=== PATIENT | male | born 1950 | race Caucasian/White ===

== ENCOUNTER 2017-05-24 18:12 | Emergency (ER) | payer MEDICARE, MEDICAID ==
[~2017-05-24] VITALS: Ht 177.8 cm; Wt 106.6 kg
[~2017-05-24 18:12] MED LIST: ALBUTEROL2 PUFFS/17 IN; AMLODIPINE10 MG PO; ATENOLOL25 M1 PO; BACTRIM DS 8001 TA1 PO; GEMFIBROZIL600 MG PO; HUMALOG KW100 UNIT/1 SQ; HUMALOG MIX 75/10 ML SC; JANUMET 1000 MG1 TAB PO; JANUMET XR 10001 TE1 PO; LASIX20 MG PO; LEVAQUIN 750 M750 MG PO; LISINOPRIL40 MG PO; LORTAB 10/3251 TAB PO; LORTAB 5/500 501 TAB PO; METFORMIN1000 MG PO; PLAVIX75 MG PO; PRAVASTATIN 40M40 MG PO; PREDNISONE 20MG20 MG PO; PRILOSEC20 MG PO; TRICOR145 MG NG; VICODIN 7.5/501 EACH PO; ZOFRAN4 MG PO
--- NOTE | 2017-05-24 18:30 | Emergency Room Report ---
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 N Clinical Suspician of Infection? Y Mental Status: 1 - Regular (Normal Baseline) Sepsis Risk:Low Sepsis Risk Have you (or family members/close friends) recently traveled outside the [place]? N If Yes, where/when: Have you had exposure to infectious disease within the past month? TB? Other? Specify: Comment The patient says he has not felt well for one week. He feels lightheaded, dizzy, like he is going to pass out. Symptoms worsened on Thursday, 2 days ago. He has been able to walk, able to drive. However, when he stands up, he says that he feels both off balance and lightheaded like he is going to pass out. He has not had complete syncope with this. Symptoms are not present lying down. He says that today his blood sugar was running 360-370 despite using 3 doses of insulin today, 30-35 units. His blood sugar normally runs between 150 and 250. He says that he has a cough for 1 month producing some phlegm. He also feels like he has a cyst on his bottom that he thinks might have ruptured today in the shower. No fever, chest pain, shortness of breath, vomiting. ALLERGIES Coded Allergies: No Known Drug Allergies (05/24/17) Home Medications Active Scripts Albuterol (Albuterol Inhaler 17GM) 1-2 PUFFS IN QID PRN SHORTNESS OF AIR #1 INH Prov: 08/07/14 HYDROCODONE/ACETAMINOPHEN (Lortab 10-325 MG Tablet) 1 TAB PO QID #20 TAB Prov: 05/25/15 Reported Medications Clopidogrel Bisulfate (Plavix) 75 MG PO DAILY LISINOPRIL (Lisinopril) 10 MG PO BID Atenolol 25 MG PO DAILY Amlodipine Besylate (Norvasc) 2.5 MG PO DAILY Omeprazole (Prilosec 20MG) 20 MG PO DAILY Metformin Hydrochloride/Ana (Janumet 1000 Mg-50 Mg) 1 TAB PO BID INSULIN NPL/INSULIN LISPRO (Humalog Mix 75-25 Vial) 30 UNITS SC DAILY INSULIN NPL/INSULIN LISPRO (Humalog Mix 75-25 Vial) 40 UNITS SC QHS Gemfibrozil (GEMFIBROZIL 600MG) 600 MG PO BID Insulin Lispro (Humalog Kwikpen) 30 UNIT SQ NOON History Medical History General CAD? Yes Angina: Yes DC: No Hypertension? Yes Hyperlipidemia? Yes CHF? No COPD? No Asthma? No Anemia? No Hernia? No Thyroid Problems? No Hypothyroidism? No CVA? No Seizures? No Diabetes? Yes Insulin Dependent: Yes Insulin Pump: No Home FSBS? Yes End Stage Renal Disease? No UTI? No Stones? Yes GB Disease: No Nephritic Syndrome? No Asplenia? No Hepatitis? No Sickle Cell Disease? No Arthritis? No Cataracts? No Glaucoma? No MRSA? No TB? No Cancer? No Immunization Hx Ped.Immunizations UTD Yes DT/Tetanus 1-4 YRS Flu [id number] Flu Season Pneumonia Received In Past Surgical Hx Previous Surgery?Y CYST REMOVED CARDIAC STENTS JULISSA STENTS IN LEGS COLONOSCOPY Skin COLON POLYPS EXCISION Family History Family Hx Diabetes Yes CAD Yes Hypertension Yes Hyperlipidemia Yes Cancer Yes TB No Social History Smoking Hx Smoker: Current Every Day Smoker Tobacco: Yes Type Cigarettes Packs/day 1 1/2 - 2 Packs Alcohol Alcohol: No Review of Systems All Other Systems Reviewed and Negative Constitutional denies fever, malaise, weakness Respiratory cough, denies shortness of breath Cardiovascular denies chest pain Gastrointestinal denies abdominal pain, denies diarrhea, denies vomiting Psychiatric/Neurological denies headache Physical Exam Vital Signs Vital Signs Date Time Temp Pulse Resp B/P Pulse O2 O2 Flow FiO2 Ox Delivery Rate 05/24 1948 71 20 124/92 96 05/24 1948 70 20 105/81 95 05/24 1912 70 18 168/87 95 05/24 1824 98.2 82 18 174/101 95 General Appearance normal appearance, WD/WN Eye Exam - bilateral eye normal exam, bilateral eye PERRL, bilateral eye EOMI Ear, Nose, Throat hearing grossly normal, normal ENT inspection Neck normal inspection, non-tender, supple, full range of motion Respiratory Status Yes: trachea midline, chest symmetrical, non tender chest. No: respiratory distress. Lung Sounds bilateral: normal breath sounds, lungs clear. 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 Mental status normal mood/affect Skin Lanie-sacral area, anal area and buttocks examined. No abscess seen Medical Decision Making LABS/Meds/Orders Pt receiving controlled substance in ED? No Results/Orders Laboratory Tests 05/24/171858: VBG pH 7.34, VBG Total CO2 25.1, VBG O2 Sat (Calc) 96.5 H, VBG Base Excess -2.0 , Mixed VBG pCO2 44.6, Mixed VBG pO2 99.3 H, Mixed VBG HCO3 23.7 05/24/171858: ABG pH Pending, ABG pCO2 (Temp Corrct Pending, ABG pO2 (Temp Correct Pending, ABG HCO3 Pending, ABG O2 Sat (Calculated) Pending, ABG Base Excess Pending 05/24/171828: Sodium 139, Potassium 3.8, Chloride 105, Carbon Dioxide 26, BUN 27 H, Creatinine 2.3 H, Estimated Creat Clear 48 L, Estimated GFR (MDRD) 29, Glucose 311 H, Calcium 8.1 L, Total Bilirubin 0.1 L, AST 14 L, ALT 14, Alkaline Phosphatase 75, Creatine Kinase 123, CK-MB (CK-2) Rel Index 1.2, CK and CKMB Interp 1.5, Troponin I < 0.02, Total Protein 6.6, Albumin 2.1 L, Globulin 4.5 H, Albumin/Globulin Ratio 0.5 L, WBC 8.8, RBC 3.71 L, Hgb 10.8 L, Hct 33.9 L , MCV 91.4, RDW 14.0, Plt Count 382, MPV 7.3 L, Gran % 63.9, Gran # 5.6, Lymphocytes % 25.2, Monocytes % 6.2, Eosinophils % 4.0, Basophils % 0.6, Lymphocytes # 2.2, Monocytes # 0.6, Eosinophils # 0.4, Basophils # 0.1, PUBS MCHC 31.9, MCH 29.2, Acetone Level NONE DETECTED Current Medication Orders Sig/Wander Start time Last Medication Dose Route Stop Time Status Admin Clindamycin Phosphate 600 MG ONCE ONE 05/24 2000 AC Sodium Chloride 100 ML IV 05/24 2101 Insulin Human [rDNA 0 .STK-MED ONE 05/24 1937 DC origin] SC Insulin Human [rDNA 10 UNITS ONCE ONE 05/24 1930 DC 05/24 origin] SC 05/24 Sodium Chloride 1,000 ML .Q1H1M 05/24 1915 AC 05/24 IV 05/24 Sodium Chloride 1,000 ML .STK-MED ONE 05/24 1833 DC IV Sodium Chloride 10 ML PRN PRN 05/24 1830 AC IV 05/25 182 Orders Procedure Date/time Status FSBS REQUEST BY [facility] 05/24 2030 Active CULTURE, WOUND 05/24 1956 Active ORTHOSTATIC B/P 05/24 193 Active VENOUS BLOOD GAS 05/24 184 Active URINALYSIS/COMPLETE 05/24 184 Active Acetone, Serum 05/24 184 Complete ELECTROCARDIOGRAM REQUEST 05/24 182 Active IV SALINE LOCK 05/24 1828 Active FSBS REQUEST BY [facility] 05/24 182 Active CBC WITH AUTO DIFF 05/24 182 Complete CARDIAC ENZYMES 05/24 182 Complete CHEM 12 PROFILE 05/24 182 Complete CM/EKG CM/EKG Comments EKG interpreted by Richard Saunders MD: Rhythm: sinus Rate: 74 [place]: normal Ectopy: none Conduction: Borderline first degree AV block ST Segment Changes: none T Wave Changes: none Q Waves: none No evidence of acute ischemia or injury XRAY/CT/US XRAY/CT/US XRAY chest Comment Chest x-ray interpreted by Richard Saunders M.D. No infiltrate, pneumothorax, pleural effusion, or wide mediastinum. Progress - 7:50 PM: Case discussed with Dr. Martínez for Dr. Fernandez. He feels the patient can be discharged with a repeat basic metabolic profile on Thursday in follow-up in the office. The patient is comfortable with this. Reexamined him to make sure there was no abscess not seen on the original examination. This time I examined him recumbent in bed and examined his genitalia and groin as well. He does have a draining abscess in his RIGHT inguinal area in the crease between his scrotum and thigh. I am able to insert a Q-tip into the draining sinus. There is some small amount, approx 1 mL of purulent drainage. Some tenderness. No significant cellulitis. I feel this can be treated as an outpatient. It is already draining. Departure Departure Disposition DC Home or Self Care(routine) Clinical Impression Primary Impression: Cutaneous abscess Qualifiers: Site of cutaneous abscess: trunk Site of cutaneous abscess of trunk : groin Qualified Code: L02.214 - Cutaneous abscess of groin Secondary Impressions: Hyperglycemia, Lightheadedness, Renal insufficiency Condition STABLE Referrals Jim PORTILLO,Cameron (Family) 2 days Patient Instructions DI for Hyperglycemia -- Adult, DI for Skin Abscess Additional Instructions Outpatient laboratory in 2 days to recheck your kidney function. See Dr. Fernandez in 2 days for follow-up of culture results and recheck on your condition. Return to the emergency Department if fever greater than 101 degrees, blood sugar persistently running greater than 350 again. Prescriptions Current Visit Scripts Clindamycin Hcl (Clindamycin 300MG) 300 MG PO QID #40 CAP ED Critical Care Critical Care No at 2006
--- OUTSIDE RECORDS SUMMARY | 2017-05-24 18:44 | External Medical Summary Rpt ---
Author Author , BARRY Flores BARRY Address Unknown Phone [email or web address] Care Team Providers Care Broadcast Meteorologist Name Role Phone A Alexa SILVEIRA MD PSC, A Unavailable Unavailable Alexa SILVEIRA MD PSC ALFARIS MOH, ALFARIS Unavailable Unavailable MOH ALFARIS MOH, ALFARIS Unavailable Unavailable MOH ALLMIRACLE GILBERT CHA, ALLRAN Unavailable Unavailable JR LUL FITZGERALD JR, SAMUEL F, Unavailable Unavailable AMILCAR GILBERT SAMUEL F BESLOPEZ MICHELLE, BESSON Unavailable Unavailable MICHELLE MARCIANOSON, SADE A, Unavailable Unavailable BESSON SADE A HAYDEE LOUISE, Unavailable Unavailable HAYDEE LOUISE LIMA ALL, LIMA ALL Unavailable Unavailable TUNDE ANT, TUNDE ANT Unavailable Unavailable CRISS SHA, CRISS Unavailable Unavailable [facility] Unavailable Unavailable [facility], [facility] Un[facility] TARUN III, SUZY L, Unavailable Unavailable TARUN III, SUZY L RIN MARGARITA, Unavailable Unavailable RIN MARGARITA RIN MARGARITA, Unavailable Unavailable RIN MARGARITA RIN, MATY, Unavailable Unavailable RIN, MATY FAJARDO HECTOR, FAJARDO HECTOR Unavailable Unavailable [facility] Unavailable [facility]available [facility] A[facility] Unavailable Unavailable ADELINE NEWT[facility], Unavailable Unavailable [facility] CAMPOS MICHAEL S, Unavailable Unavailable JESSICA YUAN NELSON, ELVI NELSON Unavailable Unavailable [facility] Unavailable Unavailable INC, [facility] Un[facility] LUCAS PEREZ HARVEY, Unavailable Unavailable LUCAS [facility], Unavailable Unavailable [facility], [facility] Unavailable Unavailable [facility], [facility] KILPELA JEA, KILPELA Unavailable Unavailable [facility] Unavailable Unavailable [facility], [facility], Unavailable Unavailable [facility] LORENZANA DES, LORENZANA Unavailable Unavailable DES LORENZANA DES, LORENZANA Unavailable Unavailable DES NICHOLAS JR DWI, NICHOLAS Unavailable Unavailable JR DWI NICHOLAS, FRANCISCO E, Unavailable Unavailable NICHOLAS, FRANCISCO E M E D SUPPL[facility], M E D Unavailable Unavailable [facility] Unavailable Unavailable SERVICES, [facility] YOSSI HA JR Unavailable Unavailable F, YOSSI HA JR, EMMETT P, Unavailable Unavailable JUMANA ANNE JOSE G, JOSE G Unavailable Unavailable JOSE G MICHELLE, JOSE G MICHELLE Unavailable Unavailable JOSE G MICHELLE, JOSE G MICHELLE Unavailable Unavailable [facility] Unavailable Unavailable [facility] NORELLE SANDRA, NORELLE Unavailable Unavailable [facility] & [facility]available Unavailable [facility] Unavailable Unavailable LAB, [facility] CHAMPAGNE GABI, CHAMPAGNE GABI Unavailable Unavailable [facility], Unavailable Unavailable [facility], Unavailable Unavailable [facility], Unavailable Unavailable [facility] LIZZIE SALAZAR, Unavailable Unavailable LIZZIE SALAZAR TOD, ELROY TOD Unavailable Unavailable SAMIRA ROSANNA, SAMIRA Unavailable Unavailable ROSANNA SAMIRA ROSANNA, SAMIRA Unavailable Unavailable ROSANNA SAMIRA, KIRA, Unavailable Unavailable SAMIRA, KIRA PATEL ONEIL, SERENE Unavailable Unavailable ONEIL RUVALCABA MARCOS, RUVALCABA MARCOS Unavailable Unavailable SOTINGEANU CHANDLER, Unavailable Unavailable [facility] TALITA SHE, Unavailable Unavailable TALITA SHE ORVILLE MAT, ORVILLE MAT Unavailable Unavailable [facility] Unavailable Unavailable [facility]591, [facility] Unavailable Unavailable [facility]591, [facility] # Unavailable Unavailable [id number], [facility] # [id number] Yossi Patel MD, Unavailable Unavailable Janelle Mcdermott MD, WRIGHT, Unavailable Unavailable A C Purpose Continuity of Care Document - 11-11-2007 through 2016 Problems Code Diagnosis DOS Provider Status E1140 TYPE 2 DM 03-16-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 SILVEIRA WITH [facility] DIABETIC NEUROPATHY UNSPECIFIED E782 MIXED 03-16-2017 A Alexa SILVEIRA HYPERLIPIDE [facility] TONIE G894 CHRONIC 03-16-2017 A Alexa SILVEIRA PAIN PSC SYNDROME I10 ESSENTIAL 03-16-2017 A Alexa SILVEIRA PRIMARY PSC HYPERTENSIO N I739 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-16-2017 A Alexa SILVEIRA VASCULAR PSC DISEASE UNSPECIFIED N183 CHRONIC 03-16-2017 A Alexa SILVEIRA KIDNEY PSC DISEASE STAGE 3 MODERATE Z720 TOBACCO USE 03-16-2017 A Alexa SILVEIRA MD PSC E1122 TYPE 2 11-18-2016 A Alexa SILVEIRA DIABETES PSC MELLITUS W/DIAB CHRON KIDNEY DZ E1142 TYPE 2 11-18-2016 A Alexa DONIS MD PSC MELLITUS W/DIAB POLYNEUROPA THY E1151 TYPE 2 DM 11-18-2016 A Alexa Zacarias/ROXANA PORTILLO PSC PERIPH 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 R809 PROTEINURIA 11-18-2016 A Alexa SILVEIRA MD PSC UNSPECIFIED X69359 COMBINED 06-17-2016 [facility] CATARACT LEFT EYE L91270 COMBINED 05-20-2016 [facility] CATARACT RIGHT EYE E119 TYPE 2 03-14-2016 [facility] P WITHOUT COMPLICATIO NS R079 CHEST PAIN 03-14-2016 [place] [facility] R42 DIZZINESS 03-14-2016 [place] [facility] 52574 DIAB W/O 08-07-2015 A Alexa SIERRA MD PSC COMP TYPE II/UNS TYPE UNCNTRL V0481 NEED 07-31-2015 A Alexa SILVEIRA PROPHYLACTI [facility] C VACCINATION &INOCULATIO N FLU 6825 CELLULITIS 06-19-2015 N[facility] AND ABSCESS REGISTRY & OF [place] [facility] 6850 PILONIDAL 06-19-2015 NUR[facility] CYST WITH REGISTRY & ABSCESS HOME HE 39874 DIAB 05-31-2015 A Alexa Zacarias/NEURO PSC MANIFESTS TYPE II/UNS TYPE UNCNTRL 39395 DIAB W/O 05-28-2015 [facility] COMP TYPE I [facility] [JUV] NOT INC STATED UNCNTRL 4019 UNSPECIFIED 05-28-2015 [facility] ESSENTIAL [facility] [place] [place] N 50735 SQUAMOUS 05-07-2015 [facility] CARCINOMA SKIN TRUNK EXCPT SCROTUM 2382 NEOPLASM OF 05-07-2015 [facility] BEHAVIOR OF SKIN V8533 BODY MASS 05-07-2015 A Alexa MCKEON MD PSC 33.0-33.9 ADULT V8534 BODY MASS 02-20-2015 A Alexa MCKEON MD PSC 34.0-34.9 ADULT 7873 FLATULENCE 02-06-2015 [facility] PAIN 47149 ABDOMINAL 02-06-2015 [place] [facility], MEDICAL UNSPECIFIED IMAGING ASS SITE 3384 CHRONIC 01-30-2015 A Alexa SILVEIRA PAIN PSC SYNDROME 4011 ESSENTIAL 01-30-2015 A Alexa SILVEIRA HYPERTENSIO PSC N, BENIGN 49454 ATHEROSLERO 01-30-2015 A Alexa ESPINOZA MD PSC EXTREM W/INTERMIT CLAUDICAT 2859 UNSPECIFIED 01-29-2015 [facility] 72475 UNSPECIFIED 01-29-2015 [facility] N 38595 OTHER 01-19-2015 [facility] DISORD[facility] OF INTESTINE 5758 OTHER 01-19-2015 [place] SPECIFIED [facility]ICAL DISORDER OF IMAGING ASS GALLBLADDER 09977 ABDOMINAL 01-16-2015 [facility] PAIN, PHYSICIANS GENERALIZED GROUP V1272 PERSONAL 01-16-2015 [facility] HISTORY OF PHYSICIANS COLONIC GROUP POLYPS 01488 UNSPECIFIED 12-28-2014 [facility] NEOPLASM INC SCALP & SKIN NECK 2150 OTH BOB 12-28-2014 [facility] DES NEOPLSM CNCTV&OTH SFT TISS HEAD FCE&NCK 33723 OTHER 12-28-2014 [facility] KERATOSIS 7099 UNSPECIFIED 12-28-2014 [facility] DISORDER ANESTH OF OF THE BLUE SKIN&SUBCUT ANEOUS TISSUE V7284 UNSPECIFIED 12-27-2014 [facility] VE EXAMINATION 2113 BENIGN 11-21-2014 [facility] NEOPLASM OF LLC COLON 73197 DIVERTICULO 11-21-2014 [facility] SIS OF PHYSICIANS COLON GROUP V6709 FOLLOW-UP 11-21-2014 [facility] EXAMINATION ANESTH OF FOLLOWING THE BLUE OTHER SURGERY V7651 SPECIAL 11-21-2014 [facility] SCREENING PHYSICIANS FOR GROUP MALIGNANT NEOPLASMS COLON 6851 PILONIDAL 11-07-2014 [facility] CYST PHYSICIANS WITHOUT GROUP MENTION OF ABSCESS 93504 DIAB 10-19-2014 A Alexa SILVEIRA W/RENAL PSC MANIFESTS TYPE II/UNS TYPE UNCNTRL 75330 CHEST PAIN 10-19-2014 A Alexa ROBERTSON MD PSC V0382 NEED PROPH 10-19-2014 A Alexa PEACOCK MD PSC AGAINST STREP PNEUMONE 4660 ACUTE 08-07-2014 [facility] 496 CHRONIC 08-07-2014 [facility] AIR[facility]AY [place]Y [place] 42464 SHORTNESS 08-07-2014 [place] [facility] 61315 WHEEZING 08-07-2014 [facility] N [facility] PHYS 7862 COUGH 08-07-2014 [facility] 2724 OTHER AND 07-31-2014 [facility] UNSPECIFIED [facility] INC HYPERLIPIDE TONIE 4280 CONGESTIVE 07-31-2014 [facility] FAILURE [facility] UNSPECIFIED 7910 PROTEINURIA 07-20-2014 Janelle SILVEIRA MD PSC 4293 CARDIOMEGAL 01-23-2014 R[facility] Y MARGARITA 486 PNEUMONIA, 01-23-2014 [facility] ORGANISM UNSPECIFIED 93447 PRECORDIAL 01-23-2014 [facility] PA[facility] 250.01 250.01 DIAB 06-05-2013 [facility], TYPE Hospital I [JUVENILE TYPE], NOT UNCNTRLD 305.1 305.1 06-05-2013 [facility] TOBACCO USE [facility] 401.9 401.9 06-05-2013 [facility] HYPERTENSIO [facility] 591 HYDRONEPHRO 06-05-2013 [facility] SIS MARGARITA 592.0 592.0 06-05-2013 [facility] CALCULUS OF [facility] KIDNEY [facility] 5920 CALCULUS OF 06-05-2013 [facility] 5941 OTHER 06-05-2013 [facility] CALCULUS IN MARGARITA BLADDER 48218 URINARY 06-05-2013 [facility] OBSTRUCTION MARGARITA UNSPECIFIED 48891 ABDOMINAL 06-05-2013 [facility] PAIN, EMERGENCY EPIGASTRIC SERVICES 64610 ATHEROSCLER 05-01-2013 [facility] ART INC EXTREMITIES UNSPEC 00337 CORONARY 04-22-2013 [facility] ATHEROSCLER [facility] INC CORONARY ARTERY 1330 SCABIES 04-05-2013 Janelle SILVEIRA [place] PSC 18302 EMBOLISM&TH 03-07-2013 [facility] ROMBOSIS [facility] ARTERIES INC LOWER EXTREMITY 4659 ACUTE URIS 01-20-2013 JOSE G MICHELLE OF UNSPECIFIED SITE 07579 ATHEROSLERO 12-24-2012 [facility] ART MARGARITA EXTREMITIES W/REST PAIN 7820 DISTURBANCE 12-24-2012 [facility] OF SKIN [facility] SENSATION INC V7644 SPECIAL 02-11-2012 [facility] ROSANNA SCREENING MALIGNANT NEOPLASM OF PROSTATE E9479 UNSPEC 11-10-2011 [facility] [place] [address] SPONDYLOSIS 08-07-2011 A Alexa SILVEIRA WITH [facility] MYELOPATHY LUMBAR REGION 7242 LUMBAGO 05-06-2011 A Alexa SILVEIRA MD [facility] 2809 UNSPECIFIED 02-10-2011 [facility] IRON SERV DEFICIENCY FOUNDATIO ANEMIA V7281 PRE-OPERATI 01-13-2011 [facility] VE PHYSICIANS CARDIOVASCU GROUP LAR EXAMINATION 11211 PAIN IN 12-17-2010 [facility] [place] [facility] REGION AND THIGH 7213 LUMBOSACRAL 12-17-[address] [facility] WITHOUT MYELOPATHY 7295 PAIN IN 12-17-2010 [facility] [place] TISSUES OF [facility] LIMB 82990 DISPLCMT 11-05-2010 [place] LUMBAR MEDICAL INTERVERT IMAGING ASS DISC W/O MYELOPATHY 3569 UNSPEC 10-17-2010 A Alexa SILVEIRA HEREDIT&IDI [facility] OPATHIC PERIPHERAL NEUROPATHY 52803 SPINAL STEN 10-17-2010 A Alexa SILVEIRA LUMB REG [facility] W/O NEUROGENIC CLAUDICATIO N 5693 HEMORRHAGE 12-13-2009 AMIL[facility] GILBERT, OF RECTUM SAMUEL F AND ANUS 46100 DIAB W/O 10-09-2009 [facility] COMP TYPE [facility] II/UNS NOT INC STATED UNCNTRL 7921 NONSPECIFIC 10-09-2009 [facility] ABNORMAL [facility] FINDING IN INC STOOL CONTENTS V5869 LONG-TERM 10-09-2009 [facility] (CURRENT) [facility] USE OF INC OTHER MEDICATIONS 2851 ACUTE 10-05-2009 AMILCAR GILBERT, POSTHEMORRH SAMUEL F AGIC ANEMIA 50140 COR 10-03-2009 [facility] ATHEROSLERO [facility] UNSPEC INC TYPE VESSEL [place]/MALOU T 5789 UNSPECIFIED 10-03-2009 [facility] HEMORRHAGE [facility] GASTROINTES PROF SERV TINAL TRACT 42409 UNSPECIFIED 10-03-2009 [facility] PYELONEPHRI SERVICES TIS ASSOCIATES 5990 URINARY 10-03-2009 [facility] TRACT [facility] SITE NOT PROF SERV SPECIFIED 45066 OSTEOARTHRO 10-03-2009 [facility] S UNSPEC MEM HOSP WHETHER INC GEN/LOC UNSPEC SITE 7880 RENAL COLIC 10-03-2009 [facility] 49067 ABDOMINAL 10-03-2009 [facility] PAIN OTHER EMERGENCY SPECIFIED SERVICES SITE ASSOCIATES 2662 OTHER 05-08-2009 [facility] DEFICIENCIE INTERNAL S MED 2810 PERNICIOUS 04-09-2009 [facility] ANEMIA EROS INTERNAL MED 3559 MONONEURITI 03-13-2009 [facility] UNSPECIFIED HOLDING SITE V4582 POSTSURG 01-17-2009 [facility] PERCUT FAMILY TRANSLUMINA PHYSICIAN Ariela STALLWORTH PSC ANGPLSTY STS 4111 INTERMEDIAT 01-03-2009 [facility] 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 Allergies, Adverse Reactions, Alerts Type Allergy to substance Adverse Reaction to Substance Substance Reaction Severity INGREDIENT: NO KNOWN Unknown Unknown - NO KNOWN DRUG ALLERGY Clinical Alert Notifications Alert Diabetes: no A1C in the last 6 months Diabetes: no eye exam in the last 365 days Diabetes: no influenza vaccine in the last 365 days Diabetes: no lipid panel in the last 365 days Diabetes: no urine protein screening in the last 365 days Medications Na ND Rx Da Fi Fi Am Da Di Ph RX Ph St me C No te ll ll ou ys ag ar # ys at rm s nt no ma ic us Or Da si cy ia de te s n re d SO 00 07 0 No DI 40 -2 UM 97 8- Lo 98 20 ng CH 30 13 er LO 9 RI Ac DE ti ve 0. 9% SO ROSSI TI ON KE 00 07 0 No TO 40 -2 RO 93 8- Lo LA 79 20 ng C 50 13 er 30 1 Ac MG ti /M ve L AL Sa 63 07 0 No li 80 -2 ne 70 8- Lo 10 20 ng Fl 07 13 er us 5 h Ac 10 ti ML ve Sy ri ng e ON 00 07 0 No DA 64 -2 NS 16 8- Lo ET 08 20 ng RO 02 13 er N 5 HC Ac L ti 4 ve MG /2 ML AL Mo 00 07 0 No rp 40 -2 hi 91 8- Lo ne 25 20 ng 83 13 er 4M 0 G/ Ac Ml ti ve Sy ri ng e TR 00 09 09 2 30 30 EA 24 RI Ac IC 07 -2 -[address] 29 SH ti OR 46 SI 76 ER ve 12 20 20 DE 14 39 11 11 RI 5 0 PH CH MG AR AR MA D TA CY BL ET OF CY NT HI AN A LI 00 09 09 2 60 30 EA 24 RI Ac SI 17 -2 -[address] 29 SH ti NO 23 SI 80 ER ve OR 76 20 20 DE IL 08 11 11 RI 0 PH CH 20 AR AR MA D MG CY TA OF BL ET CY NT HI AN A AC 64 09 09 2 30 30 EA 24 RI Ac TO 76 -2 -[address] 29 SH ti S 40 SI 71 ER ve 15 15 20 20 DE 10 11 11 RI MG 4 PH CH AR AR TA MA D BL CY ET OF CY NT HI AN A JA 00 09 09 2 60 30 EA 24 RI Ac NU 00 -2 -[address] 29 SH ti ME 60 SI 74 ER ve T 57 20 20 DE 50 76 11 11 RI -1 1 PH CH ,0 AR AR 00 MA D CY MG OF TA BL CY ET NT HI AN A PL 63 09 09 2 30 30 EA 24 RI Ac AV 65 -2 -[address] 29 SH ti IX 31 SI 75 ER ve 17 20 20 DE 75 10 11 11 RI 6 PH CH MG AR AR MA D TA CY BL ET OF CY NT HI AN A AT 00 09 09 2 60 30 EA 24 MO Ac EN 78 -2 -[address] 29 SE ti OL 11 SI 73 S ve OL [address] 80 11 11 EP 25 1 PH HE AR N MG MA A CY TA BL OF ET CY NT HI AN A OR 37 06 09 2 30 30 EA 23 RI Ac IL 00 -2 -[address] 10 SH ti OS 00 8 3 00 SI 95 ER ve EC 45 20 20 DE 50 11 11 RI OT 2 PH CH C AR AR 20 MA D .6 CY MG OF TA CY BL NT ET HI AN A PL 63 06 08 2 30 30 EA 23 RI Ac AV 65 -2 -[address] 10 SH ti IX 31 8- 9- 00 SI 94 ER ve 17 20 20 DE 75 10 11 11 RI 6 PH CH MG AR AR MA D TA CY BL ET OF CY NT HI AN A JA 00 06 08 2 60 30 EA 23 RI Ac NU 00 -2 -[address] 10 SH ti ME 60 8- 9- 00 SI 96 ER ve T 57 20 20 DE 50 76 11 11 RI -1 1 PH CH ,0 AR AR 00 MA D CY MG OF TA BL CY ET NT HI AN A LI 00 06 08 2 60 30 EA 23 RI Ac SI 17 -2 -[address] 10 SH ti NO 23 8- 9- 00 SI 91 ER ve OR 76 20 20 DE IL 08 11 11 RI 0 PH CH 20 AR AR MA D MG CY TA OF BL ET CY NT HI AN A TR 00 06 08 2 30 30 EA 23 RI Ac IC 07 -2 -[address] 10 SH ti OR 46 8- 9- 00 SI 93 ER ve 12 20 20 DE 14 39 11 11 RI 5 0 PH CH MG AR AR MA D TA CY BL ET OF CY NT HI AN A AT 00 07 08 5 30 30 EA 23 MO Ac EN 78 -2 -[address] 43 SE ti OL 11 6- 9- 00 SI 08 S ve OL [address] 80 11 11 EP 25 1 PH HE AR N MG MA A CY TA BL OF ET CY NT HI AN A 64 06 08 2 60 30 EA 23 RI Ac 67 -2 -[address] 10 SH ti 90 8- 1- 00 SI 91 ER ve 94 20 20 DE 10 11 11 RI 6 PH CH AR AR MA D CY OF CY NT HI AN A TR 00 06 08 2 30 30 EA 23 RI Ac IC 07 -2 -[address] 10 SH ti OR 46 8- 1- 00 SI 93 ER ve 12 20 20 DE 14 39 11 11 RI 5 0 PH CH MG AR AR MA D TA CY BL ET OF CY NT HI AN A PL 63 06 08 2 30 30 EA 23 RI Ac AV 65 -2 -[address] 10 SH ti IX 31 8- 1- 00 SI 94 ER ve 17 20 20 DE 75 10 11 11 RI 6 PH CH MG AR AR MA D TA CY BL ET OF CY NT HI AN A OR 37 06 08 2 30 30 EA 23 RI Ac IL 00 -2 -[address] 10 SH ti OS 00 8- 1- 00 SI 95 ER ve EC 45 20 20 DE 50 11 11 RI OT 2 PH CH C AR AR 20 MA D .6 CY MG OF TA CY BL NT ET HI AN A JA 00 06 08 2 60 30 EA 23 RI Ac NU 00 -2 -[address] 10 SH ti ME 60 8- 1- 00 SI 96 ER ve T 57 20 20 DE 50 76 11 11 RI -1 1 PH CH ,0 AR AR 00 MA D CY MG OF TA BL CY ET NT HI AN A AT 00 07 07 5 30 30 EA 23 MO Ac EN 78 -2 -[address] 43 SE ti OL 11 6- 6- 00 SI 08 S ve OL [address] 80 11 11 EP 25 1 PH HE AR N MG MA A CY TA BL OF ET CY NT HI AN A TR 00 06 06 2 30 30 EA 23 RI Ac IC 07 -2 -[address] 10 SH ti OR 46 8 00 SI 93 ER ve 12 20 20 DE 14 39 11 11 RI 5 0 PH CH MG AR AR MA D TA CY BL ET OF CY NT HI AN A PL 63 06 06 2 30 30 EA 23 RI Ac AV 65 -2 -[address] 10 SH ti IX 31 8- 9 00 SI 94 ER ve 17 20 20 DE 75 10 11 11 RI 6 PH CH MG AR AR MA D TA CY BL ET OF CY NT HI AN A OR 37 06 06 2 30 30 EA 23 RI Ac IL 00 -2 -[address] 10 SH ti OS 00 8 9- 00 SI 95 ER ve EC 45 20 20 DE 50 11 11 RI OT 2 PH CH C AR AR 20 MA D .6 CY MG OF TA CY BL NT ET HI AN A JA 00 06 06 2 60 30 EA 23 RI Ac NU 00 -2 -[address] 10 SH ti ME 60 8- 9- 00 SI 96 ER ve T 57 20 20 DE 50 76 11 11 RI -1 1 PH CH ,0 AR AR 00 MA D CY MG OF TA BL CY ET NT HI AN A 64 06 06 2 60 30 EA 23 RI Ac 67 -2 -[address] 10 SH ti 90 8- 9- 00 SI 91 ER ve 94 20 20 DE 10 11 11 RI 6 PH CH AR AR MA D CY OF CY NT HI AN A AT 51 03 06 5 30 30 WA 71 FA Ac EN 07 -1 -0 .0 L- 10 LL ti OL 90 1- 9- 00 MA 64 UJ ve OL 75 20 20 RT 4 I 96 11 11 NE 25 3 PH ZA AR R MG MA M CY TA # BL ET [address] 63 10 06 3 30 30 WA 70 FA Ac AV 65 -1 -0 .0 L- 90 LL ti IX 31 9- 2- 00 MA 79 UJ ve 17 20 20 RT 0 I 75 10 10 11 NE 6 PH ZA MG AR R MA M TA CY BL # ET 10 05 91 OR 37 06 06 0 30 30 WA 88 RI Ac IL 00 -0 -0 .0 L- 18 SH ti OS 00 2- 2- 00 MA 13 ER ve EC 45 20 20 RT 3 50 11 11 RI OT 4 PH CH C AR AR 20 MA D .6 CY # MG 10 TA 05 BL 91 ET JA 00 06 06 0 60 30 WA 71 RI Ac NU 00 -0 -0 .0 L- 21 SH ti ME 60 2- 2- 00 MA 66 ER ve T 57 20 20 RT 9 50 76 11 11 RI -1 1 PH CH ,0 AR AR 00 MA D CY MG # TA 10 BL 05 ET 91 LI 68 06 06 0 60 30 WA 71 RI Ac SI 18 -0 -0 .0 L- 21 SH ti NO 00 2- 2- 00 MA 66 ER ve OR 51 20 20 RT 7 IL 50 11 11 RI 1 PH CH 20 AR AR MA D MG CY # TA BL 10 ET 05 91 TR 00 06 06 0 30 30 WA 71 RI Ac IC 07 -0 -0 .0 L- 21 SH ti OR 46 2- 2- 00 MA 66 ER ve 12 20 20 RT 4 14 39 11 11 RI 5 0 PH CH MG AR AR MA D TA CY BL # ET 10 05 91 AT 51 03 05 5 30 30 WA 71 FA Ac EN 07 -1 -1 .0 L- 10 LL ti OL 90 1- 3- 00 MA 64 UJ ve OL 75 20 20 RT 4 I 96 11 11 NE 25 3 PH ZA AR R MG MA M CY TA # BL ET [address] 63 10 05 3 30 30 WA 70 FA Ac AV 65 -1 -0 .0 L- 90 LL ti IX 31 9- 2- 00 MA 79 UJ ve 17 20 20 RT 0 I 75 10 10 11 NE 6 PH ZA MG AR R MA M TA CY BL # ET 10 05 91 OR 37 03 05 2 30 30 WA 88 RI Ac IL 00 -0 -0 .0 L- 17 SH ti OS 00 3- 2- 00 MA 56 ER ve EC 45 20 20 RT 0 50 11 11 RI OT 4 PH CH C AR AR 20 MA D .6 CY # MG 10 TA 05 BL 91 ET TR 00 03 05 2 30 30 WA 71 RI Ac IC 07 -0 -0 .0 L- 09 SH ti OR 46 3- 2- 00 MA 31 ER ve 12 20 20 RT 3 14 39 11 11 RI 5 0 PH CH MG AR AR MA D TA CY BL # ET 10 05 91 LI 68 03 05 2 60 30 WA 71 RI Ac SI 18 -0 -0 .0 L- 09 SH ti NO 00 3- 2- 00 MA 31 ER ve OR 51 20 20 RT 2 IL 50 11 11 RI 1 PH CH 20 AR AR MA D MG CY # TA BL 10 ET 05 91 JA 00 03 05 2 60 30 WA 71 RI Ac NU 00 -0 -0 .0 L- 09 SH ti ME 60 3- 2- 00 MA 31 ER ve T 57 20 20 RT 0 50 76 11 11 RI -1 1 PH CH ,0 AR AR 00 MA D CY MG # TA 10 BL 05 ET 91 AT 51 03 04 5 30 30 WA 71 FA Ac EN 07 -1 -0 .0 L- 10 LL ti OL 90 1- 7- 00 MA 64 UJ ve OL 75 20 20 RT 4 I 96 11 11 NE 25 3 PH ZA AR R MG MA M CY TA # BL ET 10 05 91 OR 37 03 03 2 30 30 WA 88 RI Ac IL 00 -0 -3 .0 L- 17 SH ti OS 00 3- 0- 00 MA 56 ER ve EC 45 20 20 RT 0 50 11 11 RI OT 4 PH CH C AR AR 20 MA D .6 CY # MG 10 TA 05 BL 91 ET TR 00 03 03 2 30 30 WA 71 RI Ac IC 07 -0 -3 .0 L- 09 SH ti OR 46 3- 0- 00 MA 31 ER ve 12 20 20 RT 3 14 39 11 11 RI 5 0 PH CH MG AR AR MA D TA CY BL # ET 10 05 91 LI 68 03 03 2 60 30 WA 71 RI Ac SI 18 -0 -3 .0 L- 09 SH ti NO 00 3- 0- 00 MA 31 ER ve OR 51 20 20 RT 2 IL 50 11 11 RI 1 PH CH 20 AR AR MA D MG CY # TA BL 10 ET 05 JA 00 03 03 2 60 30 WA 71 RI Ac NU 00 -0 -3 .0 L- 09 SH ti ME 60 3- 0- 00 MA 31 ER ve T 57 20 20 RT 0 50 76 11 11 RI -1 1 PH CH ,0 AR AR 00 MA D CY MG # TA 10 BL [address] 63 10 03 3 30 30 WA 70 FA Ac AV 65 -1 -2 .0 L- 90 LL ti IX 31 9- 9- 00 MA 79 UJ ve 17 20 20 RT 0 I 75 10 10 11 NE 6 PH ZA MG AR R MA M TA CY BL # ET 10 AT 51 03 03 5 30 30 WA 71 FA Ac EN 07 -1 -1 .0 L- 10 LL ti OL 90 1- 1- 00 MA 64 UJ ve OL 75 20 20 RT 4 I 96 11 11 NE 25 3 PH ZA AR R MG MA M CY TA # BL ET 10 OR 37 03 03 2 30 30 WA 88 RI Ac IL 00 -0 -0 .0 L- 17 SH ti OS 00 3- 3- 00 MA 56 ER ve EC 45 20 20 RT 0 50 11 11 RI OT 4 PH CH C AR AR 20 MA D .6 CY # MG 10 TA 05 BL 91 ET FU 63 03 03 2 30 30 WA 71 RI Ac RO 30 -0 -0 .0 L- 09 SH ti SE 40 3- 3- 00 MA 31 ER ve LA 62 20 20 RT 4 DE 41 11 11 RI 0 PH CH 20 AR AR MA D MG CY # TA BL 10 ET 05 TR 00 03 03 2 30 30 WA 71 RI Ac IC 07 -0 -0 .0 L- 09 SH ti OR 46 3- 3- 00 MA 31 ER ve 12 20 20 RT 3 14 39 11 11 RI 5 0 PH CH MG AR AR MA D TA CY BL # ET 10 05 LI 54 03 03 2 60 30 WA 71 RI Ac SI 45 -0 -0 .0 L- 09 SH ti NO 80 3- 3- 00 MA 31 ER ve OR 99 20 20 RT 2 IL 61 11 11 RI 0 PH CH 20 AR AR MA D MG CY # TA BL 10 ET 05 JA 00 03 03 2 60 30 WA 71 RI Ac NU 00 -0 -0 .0 L- 09 SH ti ME 60 3- 3- 00 MA 31 ER ve T 57 20 20 RT 0 50 76 11 11 RI -1 1 PH CH ,0 AR AR 00 MA D CY MG # TA 10 BL [address] 63 10 02 3 30 30 WA 70 FA Ac AV 65 -1 -2 .0 L- 90 LL ti IX 31 9- 5- 00 MA 79 UJ ve 17 20 20 RT 0 I 75 10 10 11 NE 6 PH ZA MG AR R MA M TA CY BL # ET [address] 63 10 01 3 30 30 WA 70 FA Ac AV 65 -1 -2 .0 L- 90 LL ti IX 31 9- 5- 00 MA 79 UJ ve 17 20 20 RT 0 I 75 10 10 11 NE 6 PH ZA MG AR R MA M TA CY BL # ET 10 05 91 LI 54 12 01 1 60 30 WA 70 RI Ac SI 45 -2 -2 .0 L- 99 SH ti NO 80 7- 5- 00 MA 82 ER ve OR 99 20 20 RT 3 IL 61 10 11 RI 0 PH CH 20 AR AR MA D MG CY # TA BL 10 ET 05 91 ME 53 12 01 1 12 30 WA 70 RI Ac TF 74 -2 -2 0. L- 99 SH ti OR 60 7- 5- 00 MA 82 ER ve LA 17 20 20 0 RT 4 N 80 10 11 RI HC 1 PH CH L AR AR ER MA D CY 50 # 0 MG 10 05 TA 91 BL ET TR 00 12 01 1 30 30 WA 70 RI Ac IC 07 -2 -2 .0 L- 99 SH ti OR 46 7- 5- 00 MA 82 ER ve 12 20 20 RT 5 14 39 10 11 RI 5 0 PH CH MG AR AR MA D TA CY BL # ET 10 05 91 FU 63 12 01 1 30 30 WA 70 RI Ac RO 30 -2 -2 .0 L- 99 SH ti SE 40 7- 5- 00 MA 82 ER ve LA 62 20 20 RT 9 DE 41 10 11 RI 0 PH CH 20 AR AR MA D MG CY # TA BL 10 ET 05 91 SI 68 12 01 1 30 30 WA 70 RI Ac MV 18 -2 -2 .0 L- 99 SH ti 00 7- 5- 00 MA 83 ER ve TA 48 20 20 RT 0 TI 10 10 11 RI N 2 PH CH 80 AR AR MA D MG CY # TA BL 10 ET 05 91 OR 37 12 01 1 30 30 [place] 88 RI Ac IL 00 -2 -2 .0 L- 17 SH ti OS 00 7- 5- 00 MA 16 ER ve EC 45 20 20 RT 8 50 10 11 RI OT 4 PH CH C AR AR 20 MA D .6 CY # MG 10 TA 05 BL 91 ET GL 00 12 01 1 12 30 WA 70 RI Ac YB 09 -2 -2 0. L- 99 SH ti UR 38 7- 5- 00 MA 82 ER ve ID 34 20 20 0 RT 6 E 40 10 11 RI 5 1 PH CH MG AR AR MA D TA CY BL # ET 10 05 91 GA 53 12 01 1 90 30 WA 70 RI Ac BA 74 -2 -2 .0 L- 99 SH ti PE 60 7- 5- 00 MA 82 ER ve NT 10 20 20 RT 7 IN 10 10 11 RI 1 PH CH 10 AR AR 0 MA D MG CY # CA PS 10 UL 05 E 91 LI 54 12 12 1 60 30 WA 70 RI Ac SI 45 -2 -2 .0 L- 99 SH ti NO 80 7- 7- 00 MA 82 ER ve OR 99 20 20 RT 3 IL 61 10 10 RI 0 PH CH 20 AR AR MA D MG CY # TA BL 10 ET 05 91 ME 53 12 12 1 12 30 [place] 70 RI Ac TF 74 -2 -2 0. L- 99 SH ti OR 60 7- 7- 00 MA 82 ER ve LA 17 20 20 0 RT 4 N 80 10 10 RI HC 1 PH CH L AR AR ER MA D CY 50 # 0 MG 10 05 TA 91 BL ET TR 00 12 12 1 30 30 WA 70 RI Ac IC 07 -2 -2 .0 L- 99 SH ti OR 46 7- 7- 00 MA 82 ER ve 12 20 20 RT 5 14 39 10 10 RI 5 0 PH CH MG AR AR MA D TA CY BL # ET 10 05 91 GL 00 12 12 1 12 30 WA 70 RI Ac YB 09 -2 -2 0. L- 99 SH ti UR 38 7- 7- 00 MA 82 ER ve ID 34 20 20 0 RT 6 E 40 10 10 RI 5 1 PH CH MG AR AR MA D TA CY BL # ET 10 05 91 GA 53 12 12 1 90 30 WA 70 RI Ac BA 74 -2 -2 .0 L- 99 SH ti PE 60 7- 7- 00 MA 82 ER ve NT 10 20 20 RT 7 IN 10 10 10 RI 1 PH CH 10 AR AR 0 MA D MG CY # CA PS 10 UL 05 E 91 FU 63 12 12 1 30 30 WA 70 RI Ac RO 30 -2 -2 .0 L- 99 SH ti SE 40 7- 7- 00 MA 82 ER ve LA 62 20 20 RT 9 DE 41 10 10 RI 0 PH CH 20 AR AR MA D MG CY # TA BL 10 ET 05 91 SI 68 12 12 1 30 30 WA 70 RI Ac MV 18 -2 -2 .0 L- 99 SH ti 00 7- 7- 00 MA 83 ER ve TA 48 20 20 RT 0 TI 10 10 10 RI N 2 PH CH 80 AR AR MA D MG CY # TA BL 10 ET 05 91 OR 37 12 12 1 30 30 WA 88 RI Ac IL 00 -2 -2 .0 L- 17 SH ti OS 00 7- 7- 00 MA 16 ER ve EC 45 20 20 RT 8 50 10 10 RI OT 4 PH CH C AR AR 20 MA D .6 CY # MG 10 TA 05 BL [address] 63 10 12 3 30 30 WA 70 FA Ac AV 65 -1 -2 .0 L- 90 LL ti IX 31 9- 4- 00 MA 79 UJ ve 17 20 20 RT 0 I 75 10 10 10 NE 6 PH ZA MG AR R MA M TA CY BL # ET 10 05 91 00 12 12 0 60 30 WA 44 RI Ac 40 -0 -0 .0 L- 90 SH ti 60 9- 9- 00 MA 36 ER ve 35 20 20 RT 7 70 10 10 RI 5 PH CH AR AR MA D CY # [address] 63 10 11 3 30 30 WA 70 FA Ac AV 65 -1 -2 .0 L- 90 LL ti IX 31 9- 2- 00 MA 79 UJ ve 17 20 20 RT 0 I 75 10 10 10 NE 6 PH ZA MG AR R MA M TA CY BL # ET 10 05 91 OR 37 11 11 0 30 30 WA 88 RI Ac IL 00 -1 -1 .0 L- 16 SH ti OS 00 9- 9- 00 MA 98 ER ve EC 45 20 20 RT 8 50 10 10 RI OT 4 PH CH C AR AR 20 MA D .6 CY # MG 10 TA 05 BL 91 ET SI 68 11 11 0 30 30 WA 70 RI Ac MV 18 -1 -1 .0 L- 95 SH ti 00 9- 9- 00 MA 25 ER ve TA 48 20 20 RT 0 TI 10 10 10 RI N 2 PH CH 80 AR AR MA D MG CY # TA BL 10 ET 05 91 FU 63 11 11 0 30 30 WA 70 RI Ac RO 30 -1 -1 .0 L- 95 SH ti SE 40 9- 9- 00 MA 24 ER ve LA 62 20 20 RT 7 DE 41 10 10 RI 0 PH CH 20 AR AR MA D MG CY # TA BL 10 ET 05 91 TR 00 11 11 0 30 30 WA 70 RI Ac IC 07 -1 -1 .0 L- 95 SH ti OR 46 9- 9- 00 MA 24 ER ve 12 20 20 RT 6 14 39 10 10 RI 5 0 PH CH MG AR AR MA D TA CY BL # ET 10 05 91 ME 53 11 11 0 12 30 [place] 70 RI Ac TF 74 -1 -1 0. L- 95 SH ti OR 60 9- 9- 00 MA 24 ER ve LA 17 20 20 0 RT 4 N 80 10 10 RI HC 1 PH CH L AR AR ER MA D CY 50 # 0 MG 10 05 TA 91 BL ET GL 00 11 11 0 12 30 WA 70 RI Ac YB 09 -1 -1 0. L- 95 SH ti UR 38 9- 9- 00 MA 24 ER ve ID 34 20 20 0 RT 3 E 40 10 10 RI 5 1 PH CH MG AR AR MA D TA CY BL # ET 10 05 91 GA 53 09 11 1 90 30 WA 70 RI Ac BA 74 -2 -1 .0 L- 86 SH ti PE 60 0- 8- 00 MA 86 ER ve NT 10 20 20 RT 7 IN 10 10 10 RI 1 PH CH 10 AR AR 0 MA D MG CY # CA PS 10 UL 05 E 91 LI 54 06 11 2 60 30 WA 70 RI Ac SI 45 -2 -1 .0 L- 75 SH ti NO 80 2- 8- 00 MA 63 ER ve OR 99 20 20 RT 8 IL 61 10 10 RI 0 PH CH 20 AR AR MA D MG CY # TA BL 10 ET [address] 63 10 10 3 30 30 WA 70 FA Ac AV 65 -1 -1 .0 L- 90 LL ti IX 31 9- 9- 00 MA 79 UJ ve 17 20 20 RT 0 I 75 10 10 10 NE 6 PH ZA MG AR R MA M TA CY BL # ET 10 05 91 OR 37 10 10 0 30 30 WA 88 RI Ac IL 00 -1 -1 .0 L- 16 SH ti OS 00 6- 6- 00 MA 80 ER ve EC 45 20 20 RT 9 50 10 10 RI OT 4 PH CH C AR AR 20 MA D .6 CY # MG 10 TA 05 BL 91 ET GL 00 10 10 0 12 30 WA 70 RI Ac YB 09 -1 -1 0. L- 90 SH ti UR 38 6- 6- 00 MA 47 ER ve ID 34 20 20 0 RT 1 E 40 10 10 RI 5 1 PH CH MG AR AR MA D TA CY BL # ET 10 05 91 ME 53 10 10 0 12 30 WA 70 RI Ac TF 74 -1 -1 0. L- 90 SH ti OR 60 6- 6- 00 MA 46 ER ve LA 17 20 20 0 RT 9 N 80 10 10 RI HC 1 PH CH L AR AR ER MA D CY 50 # 0 MG 10 05 TA 91 BL ET TR 00 10 10 0 30 30 WA 70 RI Ac IC 07 -1 -1 .0 L- 90 SH ti OR 46 6- 6- 00 MA 46 ER ve 12 20 20 RT 8 14 39 10 10 RI 5 0 PH CH MG AR AR MA D TA CY BL # ET 10 05 91 FU 63 10 10 0 30 30 WA 70 RI Ac RO 30 -1 -1 .0 L- 90 SH ti SE 40 6- 6- 00 MA 46 ER ve LA 62 20 20 RT 7 DE 41 10 10 RI 0 PH CH 20 AR AR MA D MG CY # TA BL 10 ET 05 91 SI 00 10 10 0 30 30 WA 70 RI Ac MV 09 -1 -1 .0 L- 90 SH ti 37 6- 6- 00 MA 46 ER ve TA 15 20 20 RT 6 TI 69 10 10 RI N 8 PH CH 80 AR AR MA D MG CY # TA BL 10 ET 05 91 GA 53 09 10 1 90 30 WA 70 RI Ac BA 74 -2 -1 .0 L- 86 SH ti PE 60 0- 6- 00 MA 86 ER ve NT 10 20 20 RT 7 IN 10 10 10 RI 1 PH CH 10 AR AR 0 MA D MG CY # CA PS 10 UL 05 E 91 LI 54 06 10 2 60 30 WA 70 RI Ac SI 45 -2 -1 .0 L- 75 SH ti NO 80 2- 6- 00 MA 63 ER ve OR 99 20 20 RT 8 IL 61 10 10 RI 0 PH CH 20 AR AR MA D MG CY # TA BL 10 ET 05 91 GA 53 09 09 0 90 30 WA 70 RI Ac BA 74 -1 -1 .0 L- 86 SH ti PE 60 7- 7- 00 MA 60 ER ve NT 10 20 20 RT 9 IN 10 10 10 RI 1 PH CH 10 AR AR 0 MA D MG CY # CA PS 10 UL 05 E 91 OR 37 09 09 0 30 30 WA 88 RI Ac IL 00 -1 -1 .0 L- 16 SH ti OS 00 6- 6- 00 MA 64 ER ve EC 45 20 20 RT 5 50 10 10 RI OT 4 PH CH C AR AR 20 MA D .6 CY # MG 10 TA 05 BL 91 ET SI 00 09 09 0 30 30 WA 70 RI Ac MV 09 -1 -1 .0 L- 86 SH ti 37 6- 6- 00 MA 57 ER ve TA 15 20 20 RT 2 TI 69 10 10 RI N 8 PH CH 80 AR AR MA D MG CY # TA BL 10 ET 05 91 GL 00 09 09 0 12 30 WA 70 RI Ac YB 09 -1 -1 0. L- 86 SH ti UR 38 6- 6- 00 MA 57 ER ve ID 34 20 20 0 RT 1 E 40 10 10 RI 5 1 PH CH MG AR AR MA D TA CY BL # ET 10 05 91 00 09 09 0 30 30 WA 70 RI Ac 37 -1 -1 .0 L- 86 SH ti 80 6- 6- 00 MA 57 ER ve 20 20 20 RT 0 89 10 10 RI 3 PH CH AR AR MA D CY # 10 05 91 TR 00 09 09 0 30 30 WA 70 RI Ac IC 07 -1 -1 .0 L- 86 SH ti OR 46 6- 6- 00 MA 56 ER ve 12 20 20 RT 9 14 39 10 10 RI 5 0 PH CH MG AR AR MA D TA CY BL # ET 10 05 91 ME 53 09 09 0 12 30 WA 70 RI Ac TF 74 -1 -1 0. L- 86 SH ti OR 60 6- 6- 00 MA 56 ER ve LA 17 20 20 0 RT 8 N 80 10 10 RI HC 1 PH CH L AR AR ER MA D CY 50 # 0 MG 10 05 TA 91 BL ET LI 54 07 09 2 30 30 WA 70 RI Ac SI 45 -2 -1 .0 L- 79 SH ti NO 80 0- 6- 00 MA 52 ER ve OR 99 20 20 RT 5 IL 61 10 10 RI 0 PH CH 20 AR AR MA D MG CY # TA BL 10 ET [address] 63 06 09 3 30 30 WA 70 FA Ac AV 65 -2 -1 .0 L- 75 LL ti IX 31 1- 6- 00 MA 48 UJ ve 17 20 20 RT 8 I 75 10 10 10 NE 6 PH ZA MG AR R MA M TA CY BL # ET 10 [address] 63 06 08 3 30 30 WA 70 FA Ac AV 65 -2 -2 .0 L- 75 LL ti IX 31 1- 0- 00 MA 48 UJ ve 17 20 20 RT 8 I 75 10 10 10 NE 6 PH ZA MG AR R MA M TA CY BL # ET 10 05 91 OR 37 06 08 2 30 30 WA 88 RI Ac IL 00 -2 -2 .0 L- 16 SH ti OS 00 2- 0- 00 MA 18 ER ve EC 45 20 20 RT 2 50 10 10 RI OT 4 PH CH C AR AR 20 MA D .6 CY # MG 10 TA 05 BL 91 ET LI 54 07 08 2 30 30 WA 70 RI Ac SI 45 -2 -2 .0 L- 79 SH ti NO 80 0- 0- 00 MA 52 ER ve OR 99 20 20 RT 5 IL 61 10 10 RI 0 PH CH 20 AR AR MA D MG CY # TA BL 10 ET 05 91 ME 53 06 08 2 12 30 WA 70 RI Ac TF 74 -2 -2 0. L- 75 SH ti OR 60 2- 0- 00 MA 64 ER ve LA 17 20 20 0 RT 4 N 80 10 10 RI HC 1 PH CH L AR AR ER MA D CY 50 # 0 MG 10 05 TA 91 BL ET GA 53 06 08 2 90 30 WA 70 RI Ac BA 74 -2 -2 .0 L- 75 SH ti PE 60 2- 0- 00 MA 64 ER ve NT 10 20 20 RT 1 IN 10 10 10 RI 1 PH CH 10 AR AR 0 MA D MG CY # CA PS 10 UL 05 E 91 GL 00 06 08 2 12 30 WA 70 RI Ac YB 09 -2 -2 0. L- 75 SH ti UR 38 2- 0- 00 MA 64 ER ve ID 34 20 20 0 RT 0 E 40 10 10 RI 5 1 PH CH MG AR AR MA D TA CY BL # ET 10 05 91 00 06 08 2 30 30 WA 70 RI Ac 37 -2 -2 .0 L- 75 SH ti 80 2- 0- 00 MA 63 ER ve 20 20 20 RT 7 89 10 10 RI 3 PH CH AR AR MA D CY # 10 05 91 TR 00 06 08 2 30 30 WA 70 RI Ac IC 07 -2 -2 .0 L- 75 SH ti OR 46 2- 0- 00 MA 63 ER ve 12 20 20 RT 5 14 39 10 10 RI 5 0 PH CH MG AR AR MA D TA CY BL # ET 10 05 91 SI 00 06 08 2 30 30 WA 70 RI Ac MV 09 -2 -2 .0 L- 75 SH ti 37 2- 0- 00 MA 63 ER ve TA 15 20 20 RT 4 TI 69 10 10 RI N 8 PH CH 80 AR AR MA D MG CY # TA BL 10 ET 05 91 LI 54 07 07 2 30 30 WA 70 RI Ac SI 45 -2 -2 .0 L- 79 SH ti NO 80 0- 3- 00 MA 52 ER ve OR 99 20 20 RT 5 IL 61 10 10 RI 0 PH CH 20 AR AR MA D MG CY # TA BL 10 ET 05 91 LI 68 07 07 2 60 30 WA 70 RI Ac SI 18 -2 -2 .0 L- 79 SH ti NO 00 1- 1- 00 MA 21 ER ve OR 51 20 20 RT 5 IL 40 10 10 RI 1 PH CH 10 AR AR MA D MG CY # TA BL 10 ET 05 91 OR 37 06 07 2 30 30 WA 88 RI Ac IL 00 -2 -2 .0 L- 16 SH ti OS 00 2- 0- 00 MA 18 ER ve EC 45 20 20 RT 2 50 10 10 RI OT 4 PH CH C AR AR 20 MA D .6 CY # MG 10 TA 05 BL 91 ET ME 53 06 07 2 12 30 WA 70 RI Ac TF 74 -2 -2 0. L- 75 SH ti OR 60 2- 0- 00 MA 64 ER ve LA 17 20 20 0 RT 4 N 80 10 10 RI HC 1 PH CH L AR AR ER MA D CY 50 # 0 MG 10 05 TA 91 BL ET GA 53 06 07 2 90 30 WA 70 RI Ac BA 74 -2 -2 .0 L- 75 SH ti PE 60 2- 0- 00 MA 64 ER ve NT 10 20 20 RT 1 IN 10 10 10 RI 1 PH CH 10 AR AR 0 MA D MG CY # CA PS 10 UL 05 E 91 GL 00 06 07 2 12 30 WA 70 RI Ac YB 09 -2 -2 0. L- 75 SH ti UR 38 2- 0- 00 MA 64 ER ve ID 34 20 20 0 RT 0 E 40 10 10 RI 5 1 PH CH MG AR AR MA D TA CY BL # ET 10 05 91 00 06 07 2 30 30 WA 70 RI Ac 37 -2 -2 .0 L- 75 SH ti 80 2- 0- 00 MA 63 ER ve 20 20 20 RT 7 89 10 10 RI 3 PH CH AR AR MA D CY # 10 05 91 TR 00 06 07 2 30 30 WA 70 RI Ac IC 07 -2 -2 .0 L- 75 SH ti OR 46 2- 0- 00 MA 63 ER ve 12 20 20 RT 5 14 39 10 10 RI 5 0 PH CH MG AR AR MA D TA CY BL # ET 10 05 91 SI 00 06 07 2 30 30 WA 70 RI Ac MV 09 -2 -2 .0 L- 75 SH ti 37 2- 0- 00 MA 63 ER ve TA 15 20 20 RT 4 TI 69 10 10 RI N 8 PH CH 80 AR AR MA D MG CY # TA BL 10 ET 05 91 [address] 63 06 07 3 30 30 WA 70 FA Ac AV 65 -2 -2 .0 L- 75 LL ti IX 31 1- 0- 00 MA 48 UJ ve 17 20 20 RT 8 I 75 10 10 10 NE 6 PH ZA MG AR R MA M TA CY BL # ET 10 05 91 JA 00 06 06 2 30 30 WA 70 RI Ac NU 00 -2 -2 .0 L- 76 SH ti 60 9- 9- 00 MA 59 ER ve A 27 20 20 RT 7 10 73 10 10 RI 0 1 PH CH MG AR AR MA D TA CY BL # ET 10 05 91 OR 37 06 06 2 30 30 WA 88 RI Ac IL 00 -2 -2 .0 L- 16 SH ti OS 00 2- 2- 00 MA 18 ER ve EC 45 20 20 RT 2 50 10 10 RI OT 4 PH CH C AR AR 20 MA D .6 CY # MG 10 TA 05 BL 91 ET ME 53 06 06 2 12 30 WA 70 RI Ac TF 74 -2 -2 0. L- 75 SH ti OR 60 2- 2- 00 MA 64 ER ve LA 17 20 20 0 RT 4 N 80 10 10 RI HC 1 PH CH L AR AR ER MA D CY 50 # 0 MG 10 05 TA 91 BL ET GA 53 06 06 2 90 30 WA 70 RI Ac BA 74 -2 -2 .0 L- 75 SH ti PE 60 2- 2- 00 MA 64 ER ve NT 10 20 20 RT 1 IN 10 10 10 RI 1 PH CH 10 AR AR 0 MA D MG CY # CA PS 10 UL 05 E 91 GL 00 06 06 2 12 30 WA 70 RI Ac YB 09 -2 -2 0. L- 75 SH ti UR 38 2- 2- 00 MA 64 ER ve ID 34 20 20 0 RT 0 E 40 10 10 RI 5 1 PH CH MG AR AR MA D TA CY BL # ET 10 05 91 LI 54 06 06 2 60 30 WA 70 RI Ac SI 45 -2 -2 .0 L- 75 SH ti NO 80 2- 2- 00 MA 63 ER ve OR 99 20 20 RT 8 IL 61 10 10 RI 0 PH CH 20 AR AR MA D MG CY # TA BL 10 ET 05 91 00 06 06 2 30 30 WA 70 RI Ac 37 -2 -2 .0 L- 75 SH ti 80 2- 2- 00 MA 63 ER ve 20 20 20 RT 7 89 10 10 RI 3 PH CH AR AR MA D CY # 10 05 91 TR 00 06 06 2 30 30 WA 70 RI Ac IC 07 -2 -2 .0 L- 75 SH ti OR 46 2- 2- 00 MA 63 ER ve 12 20 20 RT 5 14 39 10 10 RI 5 0 PH CH MG AR AR MA D TA CY BL # ET 10 05 91 SI 00 06 06 2 30 30 WA 70 RI Ac MV 09 -2 -2 .0 L- 75 SH ti 37 2- 2- 00 MA 63 ER ve TA 15 20 20 RT 4 TI 69 10 10 RI N 8 PH CH 80 AR AR MA D MG CY # TA BL 10 ET 05 91 [address] 63 06 06 3 30 30 WA 70 FA Ac AV 65 -2 -2 .0 L- 75 LL ti IX 31 1- 1- 00 MA 48 UJ ve 17 20 20 RT 8 I 75 10 10 10 NE 6 PH ZA MG AR R MA M TA CY BL # ET 10 05 91 ME 53 05 05 0 12 30 WA 70 RI Ac TF 74 -1 -1 0. L- 71 SH ti OR 60 8- 8- 00 MA 18 ER ve LA 17 20 20 0 RT 8 N 80 10 10 RI HC 1 PH CH L AR AR ER MA D CY 50 # 0 MG 10 05 TA 91 BL ET TR 00 05 05 0 30 30 WA 70 RI Ac IC 07 -1 -1 .0 L- 71 SH ti OR 46 8- 8- 00 MA 18 ER ve 12 20 20 RT 1 14 39 10 10 RI 5 0 PH CH MG AR AR MA D TA CY BL # ET 10 [address] 63 05 05 0 30 30 WA 70 RI Ac AV 65 -1 -1 .0 L- 71 SH ti IX 31 8- 8- 00 MA 18 ER ve 17 20 20 RT 0 75 10 10 10 RI 6 PH CH MG AR AR MA D TA CY BL # ET 10 05 91 LI 54 05 05 0 60 30 WA 70 RI Ac SI 45 -1 -1 .0 L- 71 SH ti NO 80 8- 8- 00 MA 17 ER ve OR 99 20 20 RT 9 IL 71 10 10 RI 0 PH CH 10 AR AR MA D MG CY # TA BL 10 ET 05 91 GL 68 02 05 1 12 30 WA 70 RI Ac YB 64 -1 -1 0. L- 59 SH ti UR 50 9- 8- 00 MA 11 ER ve ID 21 20 20 0 RT 3 E 15 10 10 RI 5 4 PH CH MG AR AR MA D TA CY BL # ET 10 05 91 OR 37 02 05 1 30 30 WA 88 RI Ac IL 00 -1 -1 .0 L- 15 SH ti OS 00 9- 8- 00 MA 53 ER ve EC 45 20 20 RT 3 50 10 10 RI OT 4 PH CH C AR AR 20 MA D .6 CY # MG 10 TA 05 BL 91 ET 00 05 05 0 30 30 WA 70 RI Ac 37 -1 -1 .0 L- 71 SH ti 80 8- 8- 00 MA 19 ER ve 20 20 20 RT 0 89 10 10 RI 3 PH CH AR AR MA D CY # 10 05 91 OR 37 02 04 1 30 30 WA 88 RI Ac IL 00 -1 -2 .0 L- 15 SH ti OS 00 9- 0- 00 MA 53 ER ve EC 45 20 20 RT 3 50 10 10 RI OT 4 PH CH C AR AR 20 MA D .6 CY # MG 10 TA 05 BL 91 ET GL 68 02 04 1 12 30 WA 70 RI Ac YB 64 -1 -2 0. L- 59 SH ti UR 50 9- 0- 00 MA 11 ER ve ID 21 20 20 0 RT 3 E 15 10 10 RI 5 4 PH CH MG AR AR MA D TA CY BL # ET 10 05 91 ME 53 02 04 1 12 30 WA 70 RI Ac TF 74 -1 -2 0. L- 59 SH ti OR 60 9- 0- 00 MA 11 ER ve LA 17 20 20 0 RT 0 N 80 10 10 RI HC 1 PH CH L AR AR ER MA D CY 50 # 0 MG 10 05 TA [address] 63 02 04 2 30 30 WA 70 RI Ac AV 65 -1 -2 .0 L- 59 SH ti IX 31 8- 0- 00 MA 00 ER ve 17 20 20 RT 8 75 10 10 10 RI 6 PH CH MG AR AR MA D TA CY BL # ET 10 05 91 00 02 04 2 30 30 WA 70 RI Ac 37 -1 -2 .0 L- 59 SH ti 80 8- 0- 00 MA 00 ER ve 20 20 20 RT 7 89 10 10 RI 3 PH CH AR AR MA D CY # 10 05 91 TR 00 02 04 2 30 30 WA 70 RI Ac IC 07 -1 -2 .0 L- 59 SH ti OR 46 8- 0- 00 MA 00 ER ve 12 20 20 RT 6 14 39 10 10 RI 5 0 PH CH MG AR AR MA D TA CY BL # ET 10 LI 68 02 04 2 60 30 WA 70 RI Ac SI 18 -1 -2 .0 L- 59 SH ti NO 00 8- 0- 00 MA 00 ER ve OR 51 20 20 RT 4 IL 40 10 10 RI 1 PH CH 10 AR AR MA D MG CY # TA BL 10 ET 05 91 ME 53 02 03 1 12 30 WA 70 RI Ac TF 74 -1 -1 0. L- 59 SH ti OR 60 9- 9- 00 MA 11 ER ve LA 17 20 20 0 RT 0 N 80 10 10 RI HC 1 PH CH L AR AR ER MA D CY 50 # 0 MG 10 05 TA [address] 63 02 03 2 30 30 WA 70 RI Ac AV 65 -1 -1 .0 L- 59 SH ti IX 31 8- 9- 00 MA 00 ER ve 17 20 20 RT 8 75 10 10 10 RI 6 PH CH MG AR AR MA D TA CY BL # ET 10 05 00 02 03 2 30 30 WA 70 RI Ac 37 -1 -1 .0 L- 59 SH ti 80 8- 9- 00 MA 00 ER ve 20 20 20 RT 7 89 10 10 RI 3 PH CH AR AR MA D CY # 10 05 91 TR 00 02 03 2 30 30 WA 70 RI Ac IC 07 -1 -1 .0 L- 59 SH ti OR 46 8- 9- 00 MA 00 ER ve 12 20 20 RT 6 14 39 10 10 RI 5 0 PH CH MG AR AR MA D TA CY BL # ET 10 05 91 LI 54 02 03 2 60 30 WA 70 RI Ac SI 45 -1 -1 .0 L- 59 SH ti NO 80 8- 9- 00 MA 00 ER ve OR 99 20 20 RT 4 IL 71 10 10 RI 0 PH CH 10 AR AR MA D MG CY # TA BL 10 ET 05 91 OR 37 12 03 3 30 30 WA 88 AL Ac IL 00 -0 -1 .0 L- 15 LR ti OS 00 1- 9- 00 MA 11 AN ve EC 45 20 20 RT 2 50 09 10 JR OT 4 PH C AR CH 20 MA AR .6 CY LE # S MG F 10 TA 05 BL 91 ET GL 00 05 03 3 12 30 WA 70 MC Ac YB 09 -2 -1 0. L- 21 KE ti UR 38 6- 9- 00 MA 91 LA ve ID 34 20 20 0 RT 1 E E 40 09 10 JR 5 1 PH MG AR WI MA LL TA CY IA BL # M ET F 10 05 91 OR 37 12 02 02 30 30 WA 88 AL Ac IL 00 -0 -2 .0 L- 15 LR ti OS 00 1- 6- 00 MA 11 AN ve EC 45 20 20 RT 2 50 09 10 JR OT 4 PH C AR CH 20 MA AR .6 CY LE S MG #5 F 91 TA BL ET 00 02 02 00 30 30 WA 70 RI Ac 37 -1 -2 .0 L- 59 SH ti 80 8- 6- 00 MA 00 ER ve 20 20 20 RT 7 89 10 10 RI 3 PH CH AR AR MA D CY #[address] 63 02 02 00 30 30 WA 70 RI Ac AV 65 -1 -2 .0 L- 59 SH ti IX 31 8- 6- 00 MA 00 ER ve 17 20 20 RT 8 75 10 10 10 RI 6 PH CH MG AR AR MA D TA CY BL ET #5 91 TR 00 02 02 00 30 30 WA 70 RI Ac IC 07 -1 -2 .0 L- 59 SH ti OR 46 8- 6- 00 MA 00 ER ve 12 20 20 RT 6 14 39 10 10 RI 5 0 PH CH MG AR AR MA D TA CY BL ET #5 91 LI 54 02 02 00 60 30 WA 70 RI Ac SI 45 -1 -2 .0 L- 59 SH ti NO 80 8- 6- 00 MA 00 ER ve OR 99 20 20 RT 4 IL 71 10 10 RI 0 PH CH 10 AR AR MA D MG CY TA #5 BL 91 ET ME 53 08 02 03 12 30 WA 70 BE Ac TF 74 -2 -2 0. L- 33 SS ti OR 60 1- 6- 00 MA 34 ON ve LA 17 20 20 0 RT 3 N [address] HC 1 PH EP L AR HE ER MA N CY A 50 0 #5 MG 91 TA BL ET GL 00 05 02 02 12 30 WA 70 MC Ac YB 09 -2 -2 0. L- 21 KE ti UR 38 6- 6- 00 MA 91 LA ve ID 34 20 20 0 RT 1 E E 40 09 10 JR 5 1 PH MG AR WI MA LL TA CY IA BL M ET #5 F 91 ME 53 08 01 02 12 30 WA 70 BE Ac TF 74 -2 -2 0. L- 33 SS ti OR 60 1- 8- 00 MA 34 ON ve LA 17 20 20 0 RT 3 N [address] HC 1 PH EP L AR HE ER MA N CY A 50 0 #5 MG 91 TA BL ET LI 54 06 01 03 60 30 WA 70 BE Ac SI 45 -1 -1 .0 L- 24 SS ti NO 80 6- 4- 00 MA 93 ON ve OR 99 20 20 RT 0 [place] [address] 0 PH EP 10 AR HE MA N MG CY A TA #5 BL 91 ET OR 37 12 01 01 30 30 WA 88 AL Ac IL 00 -0 -1 .0 L- 15 LR ti OS 00 1- 4- 00 MA 11 AN ve EC 45 20 20 RT 2 50 09 10 JR OT 4 PH C AR CH 20 MA AR .6 CY LE S MG #5 F 91 TA BL ET OR 37 12 12 00 30 30 WA 88 AL Ac IL 00 -0 -1 .0 L- 15 LR ti OS 00 1- 7- 00 MA 11 AN ve EC 45 20 20 RT 2 50 09 09 JR OT 4 PH C AR CH 20 MA AR .6 CY LE S MG #5 F 91 TA BL ET 00 04 12 03 30 30 WA 70 BE Ac 37 -0 -1 .0 L- 14 SS ti 80 1- 7- 00 MA 66 ON ve 20 20 20 RT [address] 3 PH EP AR HE MA N CY A #5 91 52 11 12 00 1. 1 WA 70 AL Ac 26 -2 -0 00 L- 47 LR ti 80 7- 3- 0 MA 63 AN ve 52 20 20 RT 1 10 09 09 JR 1 PH AR CH MA AR CY LE S #5 F 91 CI 55 11 12 00 20 10 WA 70 MC Ac OR 11 -2 -0 .0 L- 47 KE ti OF 10 7- 3- 00 MA 59 LA ve LO 12 20 20 RT 2 E XA 70 09 09 JR CI 1 PH N AR WI HC MA LL L CY IA 50 M 0 #5 F MG [address] 63 08 12 03 30 30 WA 70 BE Ac AV 65 -2 -0 .0 L- 33 SS ti IX 31 1- 3- 00 MA 34 ON ve 17 20 20 RT 4 [address] 6 PH EP MG AR HE MA N TA CY A BL ET #5 91 LI 54 06 12 02 60 30 WA 70 BE Ac SI 45 -1 -0 .0 L- 24 SS ti NO 80 6- 3- 00 MA 93 ON ve OR 99 20 20 RT 0 [place] [address] 0 PH EP 10 AR HE MA N MG CY A TA #5 BL 91 ET 00 04 11 02 30 30 WA 70 BE Ac 37 -0 -0 .0 L- 14 SS ti 80 1- 5- 00 MA 66 ON ve 20 20 20 RT [address] 3 PH EP AR HE MA N CY A #[address] 63 08 11 02 30 30 WA 70 BE Ac AV 65 -2 -0 .0 L- 33 SS ti IX 31 1- 5- 00 MA 34 ON ve 17 20 20 RT 4 [address] 6 PH EP MG AR HE MA N TA CY A BL ET #5 91 68 08 11 01 12 30 [place] 70 BE Ac 64 -2 -0 0. L- 33 SS ti 50 1- 5- 00 MA 34 ON ve 12 20 20 0 RT [address] 9 PH EP AR HE MA N CY A #5 91 TR 00 10 11 01 30 30 WA 69 STONER Ac IC 07 -3 -0 .0 L- 93 RV ti OR 46 0- 5- 00 MA 44 EY ve 12 20 20 RT 1 14 39 08 09 SIMIN 5 0 PH DI MG AR MA TA CY BL ET #[address] 63 08 10 01 30 30 WA 70 BE Ac AV 65 -2 -0 .0 L- 33 SS ti IX 31 1- 8- 00 MA 34 ON ve 17 20 20 RT 4 [address] 6 PH EP MG AR HE MA N TA CY A BL ET #5 91 GL 00 05 09 01 12 30 WA 70 MC Ac YB 09 -2 -2 0. L- 21 KE ti UR 38 6- 4- 00 MA 91 LA ve ID 34 20 20 0 RT 1 E E 40 09 09 JR 5 1 PH MG AR WI MA LL TA CY IA BL M ET #5 F 91 TR 00 05 09 03 30 30 WA 70 BE Ac IC 07 -1 -1 .0 L- 21 SS ti OR 46 9- 0- 00 MA 13 ON ve 12 20 20 RT 4 [address] 5 0 PH EP MG AR HE MA N TA CY A BL ET #5 91 00 06 09 03 30 30 WA 70 BE Ac 37 -0 -1 .0 L- 22 SS ti 80 1- 0- 00 MA 83 ON ve 20 20 20 RT [address] 3 PH EP AR HE MA N CY A #[address] 63 08 08 00 30 30 WA 70 BE Ac AV 65 -2 -2 .0 L- 33 SS ti IX 31 1- 7- 00 MA 34 ON ve 17 20 20 RT 4 [address] 6 PH EP MG AR HE MA N TA CY A BL ET #5 91 68 08 08 00 12 30 [place] 70 BE Ac 64 -2 -2 0. L- 33 SS ti 50 1- 7- 00 MA 34 ON ve 12 20 20 0 RT [address] 9 PH EP AR HE MA N CY A #5 91 LI 54 06 08 01 60 30 WA 70 BE Ac SI 45 -1 -1 .0 L- 24 SS ti NO 80 6- 3- 00 MA 93 ON ve OR 99 20 20 RT 0 [place] [address] 0 PH EP 10 AR HE MA N MG CY A TA #5 BL 91 ET 00 06 08 02 30 30 WA 70 BE Ac 37 -0 -1 .0 L- 22 SS ti 80 1- 3- 00 MA 83 ON ve 20 20 20 RT [address] 3 PH EP AR HE MA N CY A #5 91 TR 00 05 08 02 30 30 WA 70 BE Ac IC 07 -1 -1 .0 L- 21 SS ti OR 46 9- 3- 00 MA 13 ON ve 12 20 20 RT 4 [address] 5 0 PH EP MG AR HE MA N TA CY A BL ET #[address] 63 02 08 05 30 30 WA 70 FA Ac AV 65 -2 -1 .0 L- 09 LL ti IX 31 6- 3- 00 MA 67 UJ ve 17 20 20 RT 9 I 75 10 09 09 NE 6 PH ZA MG AR R MA M TA CY BL ET #5 91 00 06 07 01 30 30 [place] 70 BE Ac 37 -0 -1 .0 L- 22 SS ti 80 1- 6- 00 MA 83 ON ve 20 20 20 RT [address] 3 PH EP AR HE MELINDA [place] CY A #5 91 LI 54 06 07 00 60 30 [place] 70 BE Ac SI 45 -1 -0 .0 L- 24 SS ti NO 80 6- 2- 00 MA 93 ON ve OR 99 20 20 RT 0 [place] [address] 0 PH EP 10 AR HE MELINDA N MG CY A TA #5 BL 91 ET TR 00 05 07 01 30 30 WA 70 BE Ac IC 07 -1 -0 .0 L- 21 SS ti OR 46 9- 2- 00 MA 13 ON ve 12 20 20 RT 4 [address] 5 0 PH EP MG AR HE MELINDA [place] TA CY A BL ET #[address] 63 02 07 04 30 30 WA 70 FA Ac AV 65 -2 -0 .0 L- 09 LL ti IX 31 6- 2- 00 MA 67 UJ ve 17 20 20 RT 9 I 75 10 09 09 NE 6 PH ZA MG AR R MELINDA M TA CY BL ET #5 91 00 06 06 00 30 30 [place] 70 BE Ac 37 -0 -1 .0 L- 22 SS ti 80 1- 8- 00 MA 83 ON ve 20 20 20 RT [address] 3 PH EP AR HE MELINDA [place] CY A #5 91 CY 00 06 06 00 30 36 WA 70 BE Ac AN 51 -0 -1 .0 0 L- 22 SS ti OC 70 1- 8- 00 MA 83 ON ve OB 13 20 20 RT 3 AL [address] AM 5 PH EP IN AR HE MELINDA N 1, CY A 00 0 #5 MC 91 G/ ML PL 63 02 06 03 30 30 [place] 70 FA Ac AV 65 -2 -0 .0 L- 09 LL ti IX 31 6- 4- 00 MA 67 UJ ve 17 20 20 RT 9 I 75 10 09 09 NE 6 PH ZA MG AR R MA M TA CY BL ET #5 91 TR 00 05 06 00 30 30 WA 70 BE Ac IC 07 -1 -0 .0 L- 21 SS ti OR 46 9- 4- 00 MA 13 ON ve 12 20 20 RT 4 [address] 5 0 PH EP MG AR HE MELINDA N TA CY A BL ET #5 91 GL 00 05 06 00 12 30 WA 70 MC Ac YB 09 -2 -0 0. L- 21 KE ti UR 38 6- 4- 00 MA 91 LA ve ID 34 20 20 0 RT 1 E E 40 09 09 JR 5 1 PH MG AR WI MA LL TA CY IA BL M ET #5 F 91 68 05 05 00 12 30 WA 70 BE Ac 64 -0 -2 0. L- 19 SS ti 50 6- 1- 00 MA 54 ON ve 12 20 20 0 RT [address] 9 PH EP AR HE MA N CY A #5 91 GA 60 05 05 00 90 30 WA 70 BE Ac BA 50 -0 -2 .0 L- 19 SS ti PE 50 5- 1- 00 MA 25 ON ve NT 11 20 20 RT 0 IN [address] 1 PH EP 30 AR HE 0 MA N MG CY A CA #5 PS 91 UL E 00 04 05 01 30 30 WA 70 BE Ac 37 -0 -2 .0 L- 14 SS ti 80 1- 1- 00 MA 66 ON ve 20 20 20 RT [address] 3 PH EP AR HE MA N CY A #5 91 SI 00 05 05 00 30 30 WA 70 BE Ac MV 09 -0 -2 .0 L- 19 SS ti 37 6- 1- 00 MA 54 ON ve TA 15 20 20 RT 3 TI [address] N 8 PH EP 80 AR HE MA N MG CY A TA #5 BL 91 ET LI 68 01 05 03 60 30 WA 70 STONER Ac SI 18 -1 -2 .0 L- 04 RV ti NO 00 6- 1- 00 MA 20 EY ve OR 51 20 20 RT 2 IL 40 09 09 SIMIN 1 PH DI 10 AR MA MG CY TA #[address] 02 05 02 30 30 WA 70 FA Ac AV 65 -2 -0 .0 L- 09 LL ti IX 31 6- 7- 00 MA 67 UJ ve 17 20 20 RT 9 I 75 10 09 09 NE 6 PH ZA MG AR R MA M TA CY BL ET #5 91 TR 00 01 04 03 30 30 WA 70 STONER Ac IC 07 -1 -2 .0 L- 04 RV ti OR 46 5- 3- 00 MA 07 EY ve 12 20 20 RT 4 14 39 09 09 SIMIN 5 0 PH DI MG AR MA TA CY BL ET #[address] 63 02 04 01 30 30 WA 70 FA Ac AV 65 -2 -0 .0 L- 09 LL ti IX 31 6- 9- 00 MA 67 UJ ve 17 20 20 RT 9 I 75 10 09 09 NE 6 PH ZA MG AR R MA M TA CY BL ET #5 91 68 03 04 00 60 30 WA 70 MC Ac 64 -3 -0 .0 L- 14 KE ti 50 0- 9- 00 MA 32 LA ve 12 20 20 RT 7 E 05 09 09 JR 9 PH AR WI MA LL CY IA M #5 F 91 00 04 04 00 30 30 WA 70 BE Ac 37 -0 -0 .0 L- 14 SS ti 80 1- 9- 00 MA 66 ON ve 20 20 20 RT [address] 3 PH EP AR HE MA N CY A #5 91 SI 00 01 03 01 30 30 WA 70 STONER Ac MV 09 -1 -2 .0 L- 04 RV ti 37 5- 6- 00 MA 07 EY ve TA 15 20 20 RT 3 TI 59 09 09 SIMIN N 8 PH DI 40 AR MA MG CY TA #5 BL 91 ET LI 54 01 03 02 60 30 WA 70 STONER Ac SI 45 -1 -2 .0 L- 04 RV ti NO 80 6- 6- 00 MA 20 EY ve OR 99 20 20 RT 2 IL 71 09 09 SIMIN 0 PH DI 10 AR MA MG CY TA #5 BL 91 ET TR 00 01 03 02 30 30 WA 70 STONER Ac IC 07 -1 -2 .0 L- 04 RV ti OR 46 5- 6- 00 MA 07 EY ve 12 20 20 RT 4 14 39 09 09 SIMIN 5 0 PH DI MG AR MA TA CY BL ET #5 91 GL 00 11 03 03 12 30 WA 69 STONER Ac YB 09 -1 -2 0. L- 95 RV ti UR 38 2- 6- 00 MA 18 EY ve ID 34 20 20 0 RT 1 E 40 08 09 SIMIN 5 1 PH DI MG AR MA TA CY BL ET #5 91 00 03 03 00 30 30 WA 70 STONER Ac 37 -0 -1 .0 L- 10 RV ti 80 4- 2- 00 MA 67 EY ve 20 20 20 RT 7 89 09 09 SIMIN 3 PH DI AR MA CY #[address] 63 02 03 00 30 30 WA 70 FA Ac AV 65 -2 -1 .0 L- 09 LL ti IX 31 6- 2- 00 MA 67 UJ ve 17 20 20 RT 9 I 75 10 09 09 NE 6 PH ZA MG AR R MA M TA CY BL ET #5 91 FU 00 02 02 00 20 20 WA 70 FA Ac RO 37 -1 -2 .0 L- 07 LL ti SE 80 1- 6- 00 MA 67 UJ ve LA 20 20 20 RT 9 I DE 80 09 09 NE 1 PH ZA 20 AR R MA M MG CY TA #5 BL 91 ET TR 00 01 02 01 30 30 WA 70 STONER Ac IC 07 -1 -2 .0 L- 04 RV ti OR 46 5- 6- 00 MA 07 EY ve 12 20 20 RT 4 14 39 09 09 SIMIN 5 0 PH DI MG AR MA TA CY BL ET #5 91 00 11 02 02 90 30 WA 69 STONER Ac 09 -1 -2 .0 L- 95 RV ti 31 2- 6- 00 MA 17 EY ve 03 20 20 RT 8 80 08 09 SIMIN 1 PH DI AR MA CY #5 91 LI 54 01 02 01 60 30 WA 70 STONER Ac SI 45 -1 -2 .0 L- 04 RV ti NO 80 6- 6- 00 MA 20 EY ve OR 99 20 20 RT 2 IL 71 09 09 SIMIN 0 PH DI 10 AR MA MG CY TA #5 BL 91 ET 68 11 02 03 60 30 WA 69 STONER Ac 64 -1 -2 .0 L- 95 RV ti 50 2- 6- 00 MA 17 EY ve 12 20 20 RT 9 05 08 09 SIMIN 9 PH DI AR MA CY #5 91 GL 00 11 02 02 12 30 WA 69 STONER Ac YB 09 -1 -2 0. L- 95 RV ti UR 38 2- 6- 00 MA 18 EY ve ID 34 20 20 0 RT 1 E 40 08 09 SIMIN 5 1 PH DI MG AR MA TA CY BL ET #5 91 SI 00 01 01 00 30 30 WA 70 STONER Ac MV 09 -1 -3 .0 L- 04 RV ti 37 5- 0- 00 MA 07 EY ve TA 15 20 20 RT 3 TI 59 09 09 SIMIN N 8 PH DI 40 AR MA MG CY TA #5 BL 91 ET GL 00 11 01 01 12 30 WA 69 STONER Ac YB 09 -1 -3 0. L- 95 RV ti UR 38 2- 0- 00 MA 18 EY ve ID 34 20 20 0 RT 1 E 40 08 09 SIMIN 5 1 PH DI MG AR MA TA CY BL ET #5 91 LI 54 01 01 00 60 30 WA 70 STONER Ac SI 45 -1 -3 .0 L- 04 RV ti NO 80 6- 0- 00 MA 20 EY ve OR 99 20 20 RT 2 IL 71 09 09 SIMIN 0 PH DI 10 AR MA MG CY TA #5 BL 91 ET TR 00 01 01 00 30 30 WA 70 STONER Ac IC 07 -1 -3 .0 L- 04 RV ti OR 46 5- 0- 00 MA 07 EY ve 12 20 20 RT 4 14 39 09 09 SIMIN 5 0 PH DI MG AR MA TA CY BL ET #5 91 ME 60 11 01 02 60 30 WA 69 STONER Ac TF 50 -1 -3 .0 L- 95 RV ti OR 50 2- 0- 00 MA 17 EY ve LA 26 20 20 RT 9 N 00 08 09 SIMIN HC 2 PH DI L AR ER MA CY 50 0 #5 MG 91 TA BL ET 00 11 01 01 90 30 WA 69 STONER Ac 09 -1 -1 .0 L- 95 RV ti 31 2- 5- 00 MA 17 EY ve 03 20 20 RT 8 80 08 09 SIMIN 1 PH DI AR MA CY #5 91 ME 60 11 01 01 60 30 WA 69 STONER Ac TF 50 -1 -0 .0 L- 95 RV ti OR 50 2- 1- 00 MA 17 EY ve LA 26 20 20 RT 9 N 00 08 09 SIMIN HC 2 PH DI L AR ER MA CY 50 0 #5 MG 91 TA BL ET GL 00 11 12 00 12 30 WA 69 STONER Ac YB 09 -1 -1 0. L- 95 RV ti UR 38 2- 8- 00 MA 18 EY ve ID 34 20 20 0 RT 1 E 40 08 08 SIMIN 5 1 PH DI MG AR MA TA CY BL ET #5 91 00 11 11 00 90 30 WA 69 STONER Ac 09 -1 -2 .0 L- 95 RV ti 31 2- 0- 00 MA 17 EY ve 03 20 20 RT 8 80 08 08 SIMIN 1 PH DI AR MA CY #5 91 GL 00 05 11 02 12 30 WA 69 STONER Ac YB 09 -0 -2 0. L- 70 RV ti UR 38 5- 0- 00 MA 66 EY ve ID 34 20 20 0 RT 9 E 40 08 08 SIMIN 5 1 PH DI MG AR MA TA CY BL ET #5 91 00 11 11 00 90 30 WA 44 STONER Ac 40 -1 -2 .0 L- 72 RV ti 60 2- 0- 00 MA 13 EY ve 35 20 20 RT 1 70 08 08 SIMIN 5 PH DI AR MA CY #5 91 SI 00 11 11 00 30 30 WA 69 STONER Ac MC 07 -1 -2 .0 L- 95 RV ti OR 43 3- 0- 00 MA 43 EY ve 31 20 20 RT 2 50 29 08 08 SIMIN 0- 0 PH DI 20 AR MA MG CY TA #5 BL 91 ET LI 68 11 11 00 30 30 WA 69 STONER Ac SI 18 -1 -2 .0 L- 95 RV ti NO 00 2- 0- 00 MA 18 EY ve OR 51 20 20 RT 4 IL 40 08 08 SIMIN 1 PH DI 10 AR MA MG CY TA #5 BL 91 ET AC 64 11 11 00 30 30 WA 69 STONER Ac TO 76 -1 -2 .0 L- 95 RV ti S 40 2- 0- 00 MA 18 EY ve 30 30 20 20 RT 2 11 08 08 SIMIN MG 4 PH DI AR TA MA BL CY ET #5 91 ME 60 11 11 00 60 30 WA 69 STONER Ac TF 50 -1 -2 .0 L- 95 RV ti OR 50 2- 0- 00 MA 17 EY ve LA 26 20 20 RT 9 N 00 08 08 SIMIN HC 2 PH DI L AR ER MA CY 50 0 #5 MG 91 TA BL ET TR 00 10 11 00 30 30 WA 69 STONER Ac IC 07 -3 -0 .0 L- 93 RV ti OR 46 0- 7- 00 MA 44 EY ve 12 20 20 RT 1 14 39 08 08 SIMIN 5 0 PH DI MG AR MA TA CY BL ET #5 91 ME 60 07 10 03 60 30 WA 69 STONER Ac TF 50 -0 -2 .0 L- 77 RV ti OR 50 1- 3- 00 MA 97 EY ve LA 26 20 20 RT 6 N 00 08 08 SIMIN HC 2 PH DI L AR ER MA CY 50 0 #5 MG 91 TA BL ET AC 64 09 10 00 30 30 WA 69 STONER Ac TO 76 -2 -0 .0 L- 88 RV ti S 40 6- 9- 00 MA 95 EY ve 30 30 20 20 RT 3 11 08 08 SIMIN MG 4 PH DI AR TA MA BL CY ET #5 91 GL 00 05 10 01 12 30 WA 69 STONER Ac YB 09 -0 -0 0. L- 70 RV ti UR 38 5- 9- 00 MA 66 EY ve ID 34 20 20 0 RT 9 E 40 08 08 SIMIN 5 1 PH DI MG AR MA TA CY BL ET #5 91 TR 00 07 10 02 30 30 WA 69 STONER Ac IC 07 -2 -0 .0 L- 80 RV ti OR 46 1- 9- 00 MA 13 EY ve 12 20 20 RT 2 14 39 08 08 SIMIN 5 0 PH DI MG AR MA TA CY BL ET #5 91 00 05 09 03 90 30 WA 69 STONER Ac 09 -0 -2 .0 L- 70 RV ti 31 5- 6- 00 MA 66 EY ve 03 20 20 RT 5 80 08 08 SIMIN 1 PH DI AR MA CY #5 91 ME 60 07 09 02 60 30 WA 69 STONER Ac TF 50 -0 -2 .0 L- 77 RV ti OR 50 1- 6- 00 MA 97 EY ve LA 26 20 20 RT 6 N 00 08 08 SIMIN HC 2 PH DI L AR ER MA CY 50 0 #5 MG 91 TA BL ET SI 00 08 08 00 30 30 WA 69 STONER Ac MV 09 -0 -2 .0 L- 82 RV ti 37 8- 8- 00 MA 41 EY ve TA 15 20 20 RT 4 TI 69 08 08 SIMIN N 8 PH DI 80 AR MA MG CY TA #5 BL 91 ET GL 00 05 08 00 12 30 WA 69 STONER Ac YB 09 -0 -2 0. L- 70 RV ti UR 38 5- 8- 00 MA 66 EY ve ID 34 20 20 0 RT 9 E 40 08 08 SIMIN 5 1 PH DI MG AR MA TA CY BL ET #5 91 TR 00 07 08 01 30 30 WA 69 STONER Ac IC 07 -2 -2 .0 L- 80 RV ti OR 46 1- 8- 00 MA 13 EY ve 12 20 20 RT 2 14 39 08 08 SIMIN 5 0 PH DI MG AR MA TA CY BL ET #5 91 ME 60 07 08 01 60 30 WA 69 STONER Ac TF 50 -0 -1 .0 L- 77 RV ti OR 50 1- 4- 00 MA 97 EY ve LA 26 20 20 RT 6 N 00 08 08 SIMIN HC 2 PH DI L AR ER MA CY 50 0 #5 MG 91 TA BL ET SI 00 05 08 02 30 30 WA 69 STONER Ac MV 09 -1 -1 .0 L- 71 RV ti 37 2- 4- 00 MA 63 EY ve TA 15 20 20 RT 0 TI 59 08 08 SIMIN N 8 PH DI 40 AR MA MG CY TA #5 BL 91 ET AC 64 05 08 02 30 30 WA 69 STONER Ac TO 76 -1 -1 .0 L- 71 RV ti S 40 2- 4- 00 MA 61 EY ve 30 30 20 20 RT 4 11 08 08 SIMIN MG 4 PH DI AR TA MA BL CY ET #5 91 00 05 08 02 90 30 WA 69 STONER Ac 09 -0 -1 .0 L- 70 RV ti 31 5- 4- 00 MA 66 EY ve 03 20 20 RT 5 80 08 08 SIMIN 1 PH DI AR MA CY #5 91 TR 00 07 08 00 30 30 WA 69 STONER Ac IC 07 -2 -0 .0 L- 80 RV ti OR 46 1- 1- 00 MA 13 EY ve 12 20 20 RT 2 14 39 08 08 SIMIN 5 0 PH DI MG AR MA TA CY BL ET #5 91 GL 00 04 07 03 12 30 WA 69 STONER Ac YB 09 -0 -1 0. L- 67 RV ti UR 38 7- 7- 00 MA 13 EY ve ID 34 20 20 0 RT 0 E 40 08 08 SIMIN 5 1 PH DI MG AR MA TA CY BL ET #5 91 ME 60 07 07 00 60 30 WA 69 STONER Ac TF 50 -0 -1 .0 L- 77 RV ti OR 50 1- 7- 00 MA 97 EY ve LA 26 20 20 RT 6 N 00 08 08 SIMIN HC 2 PH DI L AR ER MA CY 50 0 #5 MG 91 TA BL ET LI 54 05 07 02 30 30 WA 69 STONER Ac SI 45 -0 -1 .0 L- 70 RV ti NO 80 5- 7- 00 MA 66 EY ve OR 99 20 20 RT 6 [place] 71 08 08 SIMIN 0 PH DI 10 AR MA MG CY TA #5 BL 91 ET AM 00 07 07 00 30 10 WA 69 No Ac OX 78 -0 -1 .0 L- 78 t ti IC 12 1- 7- 00 MA 01 Av ve IL 61 20 20 RT 6 ai LI 33 08 08 la N 1 PH bl 50 AR e 0 MA MG CY CA #5 PS 91 UL E AC 00 07 07 00 20 5 WA 44 No Ac ET 09 -0 -1 .0 L- 69 t ti AM 30 1- 7- 00 MA 25 Av ve IN 15 20 20 RT 2 ai OP 01 08 08 la HE 0 PH bl N- AR e CO MA D CY #3 #5 TA 91 BL ET AC 64 05 07 01 30 30 WA 69 STONER Ac TO 76 -1 -0 .0 L- 71 RV ti S 40 2- 3- 00 MA 61 EY ve 30 30 20 20 RT 4 11 08 08 SIMIN MG 4 PH DI AR TA MA BL CY ET #5 91 SI 00 05 07 01 30 30 WA 69 STONER Ac MV 09 -1 -0 .0 L- 71 RV ti 37 2- 3- 00 MA 63 EY ve TA 15 20 20 RT 0 TI 59 08 08 SIMIN N 8 PH DI 40 AR MA MG CY TA #5 BL 91 ET TR 00 03 06 03 30 30 WA 69 STONER Ac IC 07 -0 -1 .0 L- 63 RV ti OR 46 7- 2- 00 MA 29 EY ve 12 20 20 RT 8 14 39 08 08 SIMIN 5 0 PH DI MG AR MA TA CY BL ET #5 91 00 05 06 01 90 30 WA 69 STONER Ac 09 -0 -1 .0 L- 70 RV ti 31 5- 2- 00 MA 66 EY ve 03 20 20 RT 5 80 08 08 SIMIN 1 PH DI AR MA CY #5 91 ME 60 03 06 03 60 30 WA 69 STONER Ac TF 50 -0 -1 .0 L- 63 RV ti OR 50 7- 2- 00 MA 30 EY ve LA 26 20 20 RT 0 N 00 08 08 SIMIN HC 2 PH DI L AR ER MA CY 50 0 #5 MG 91 TA BL ET GL 00 04 06 02 12 30 WA 69 STONER Ac YB 09 -0 -1 0. L- 67 RV ti UR 38 7- 2- 00 MA 13 EY ve ID 34 20 20 0 RT 0 E 40 08 08 SIMIN 5 1 PH DI MG AR MA TA CY BL ET #5 91 LI 68 05 06 01 30 30 WA 69 STONER Ac SI 18 -0 -1 .0 L- 70 RV ti NO 00 5- 2- 00 MA 66 EY ve OR 51 20 20 RT 6 IL 40 08 08 SIMIN 1 PH DI 10 AR MA MG CY TA #5 BL 91 ET PE 00 05 06 00 40 10 WA 69 No Ac NI 78 -2 -0 .0 L- 72 t ti CI 11 2- 5- 00 MA 95 Av ve LL 65 20 20 RT 5 ai IN 50 08 08 la 1 PH bl VK AR e MA 50 CY 0 MG #5 91 TA BL ET AC 00 05 06 00 20 5 WA 44 No Ac ET 09 -2 -0 .0 L- 68 t ti AM 30 2- 5- 00 MA 36 Av ve IN 15 20 20 RT 1 ai OP 01 08 08 la HE 0 PH bl N- AR e CO MA D CY #3 #5 TA 91 BL ET LI 68 05 05 00 30 30 WA 69 No Ac SI 18 -0 -2 .0 L- 70 t ti NO 00 5- 2- 00 MA 66 Av ve OR 51 20 20 RT 6 ai IL 40 08 08 la 1 PH bl 10 AR e MA MG CY TA #5 BL 91 ET TR 00 03 05 02 30 30 WA 69 No Ac IC 07 -0 -2 .0 L- 63 t ti OR 46 7- 2- 00 MA 29 Av ve 12 20 20 RT 8 ai 14 39 08 08 la 5 0 PH bl MG AR e MA TA CY BL ET #5 91 00 05 05 00 90 30 WA 69 No Ac 09 -0 -2 .0 L- 70 t ti 31 5- 2- 00 MA 66 Av ve 03 20 20 RT 5 ai 80 08 08 la 1 PH bl AR e MA CY #5 91 GL 00 04 05 01 12 30 WA 69 No Ac YB 09 -0 -2 0. L- 67 t ti UR 38 7- 2- 00 MA 13 Av ve ID 34 20 20 0 RT 0 ai E 40 08 08 la 5 1 PH bl MG AR e MA TA CY BL ET #5 91 00 03 05 02 60 30 WA 69 No Ac 18 -0 -2 .0 L- 63 t ti 54 7- 2- 00 MA 30 Av ve 41 20 20 RT 0 ai 60 08 08 la 5 PH bl AR e MA CY #5 91 AC 64 05 05 00 30 30 WA 69 STONER Ac TO 76 -1 -2 .0 L- 71 RV ti S 40 2- 2- 00 MA 61 EY ve 30 30 20 20 RT 4 11 08 08 SIMIN MG 4 PH DI AR TA MA BL CY ET #5 91 SI 00 05 05 00 30 30 WA 69 STONER Ac MV 09 -1 -2 .0 L- 71 RV ti 37 2- 2- 00 MA 63 EY ve TA 15 20 20 RT 0 TI 59 08 08 SIMIN N 8 PH DI 40 AR MA MG CY TA #5 BL 91 ET 00 03 04 01 60 30 WA 69 No Ac 18 -0 -2 .0 L- 63 t ti 54 7- 4- 00 MA 30 Av ve 41 20 20 RT 0 ai 60 08 08 la 5 PH bl AR e MA CY #5 91 TR 00 03 04 01 30 30 WA 69 No Ac IC 07 -0 -2 .0 L- 63 t ti OR 46 7- 4- 00 MA 29 Av ve 12 20 20 RT 8 ai 14 39 08 08 la 5 0 PH bl MG AR e MA TA CY BL ET #5 91 GL 00 04 04 00 12 30 WA 69 No Ac YB 09 -0 -2 0. L- 67 t ti UR 38 7- 4- 00 MA 13 Av ve ID 34 20 20 0 RT 0 ai E 40 08 08 la 5 1 PH bl MG AR e MA TA CY BL ET #5 91 TR 00 03 04 00 30 30 WA 69 No Ac IC 07 -0 -0 .0 L- 63 t ti OR 46 7- 7- 00 MA 29 Av ve 12 20 20 RT 8 ai 14 39 08 08 la 5 0 PH bl MG AR e MA TA CY BL ET #5 91 00 03 04 00 60 30 WA 69 No Ac 18 -0 -0 .0 L- 63 t ti 54 7- 7- 00 MA 30 Av ve 41 20 20 RT 0 ai 60 08 08 la 5 PH bl AR e MA CY #5 91 GL 00 12 04 03 12 30 WA 69 No Ac YB 09 -1 -0 0. L- 51 t ti UR 39 0- 7- 00 MA 84 Av ve ID 36 20 20 0 RT 9 ai E 40 07 08 la 5 1 PH bl MG AR e MA TA CY BL ET #5 91 00 11 03 03 60 30 WA 69 No Ac 18 -1 -2 .0 L- 48 t ti 54 6- 6- 00 MA 84 Av ve 41 20 20 RT 6 ai 60 07 08 la 5 PH bl AR e MA CY #5 91 TR 00 09 03 05 30 30 WA 69 No Ac IC 07 -1 -2 .0 L- 41 t ti OR 46 7- 6- 00 MA 89 Av ve 12 20 20 RT 1 ai 14 39 07 08 la 5 0 PH bl MG AR e MA TA CY BL ET #5 91 GL 00 12 03 02 12 30 WA 69 No Ac YB 09 -1 -2 0. L- 51 t ti UR 39 0- 6- 00 MA 84 Av ve ID 36 20 20 0 RT 9 ai E 40 07 08 la 5 1 PH bl MG AR e MA TA CY BL ET #5 91 GL 00 12 03 01 12 30 WA 69 No Ac YB 09 -1 -2 0. L- 51 t ti UR 39 0- 4- 00 MA 84 Av ve ID 36 20 20 0 RT 9 ai E 40 07 08 la 5 1 PH bl MG AR e MA TA CY BL ET #5 91 TR 00 09 03 04 30 30 WA 69 No Ac IC 07 -1 -2 .0 L- 41 t ti OR 46 7- 4- 00 MA 89 Av ve 12 20 20 RT 1 ai 14 39 07 08 la 5 0 PH bl MG AR e MA TA CY BL ET #5 91 00 11 03 02 60 30 WA 69 No Ac 18 -1 -2 .0 L- 48 t ti 54 6- 4- 00 MA 84 Av ve 41 20 20 RT 6 ai 60 07 08 la 5 PH bl AR e MA CY #5 91 Immunization Name Date Rout CVX Reac Dose Comm Prov Is Faci e tion ent ider Refu lity Give sed n IIV4 09-2 150 [facility] No A C 2-20 S WRIG VACC 15 MICHELLE HT MD PRES PSC RV FREE 0.5 ML FOR IM USE IIV3 12- 141 [place] No A C 1-20 S WRIG VACC 14 MICHELLE HT INE MD SPLI PSC T VIRU S 0.5 ML DOSA GE IM USE PCV1 12- 133 [place]ARA No A C 3 1-20 S WRIG VACC 14 MICHELLE HT INE MD FOR PSC INTR AMUS CULA R USE IIV3 10- 141 [facility] No CLARA 4-20 S S VACC 13 MICHELLE INE SPLI T VIRU MICHELLE S 0.5 ML DOSA GE IM USE Vital Signs 06-05-2013 09:44 Name Value Interpretat Reference Comment ion Range BP 93 mm[Hg] Diastolic BP Systolic 181 mm[Hg] Heart 66 /min Rate/Pulse O2% 95 % Respiratory 20 /min Rate 06-05-2013 09:09 Name Value Interpretat Reference Comment ion Range BP 104 mm[Hg] Diastolic BP Systolic 240 mm[Hg] Heart 76 /min Rate/Pulse O2% 98 % Respiratory 20 /min Rate Results Labs Lab Lab Date Result Refere Interp Status Commen Order Detail nces retati t Range on URINALYSIS/COMPLETE (06-05-2013 07:45) URINE YELLOW YELLOW complet COLOR 013 ed 07:45 URINE Sl CLEAR complet APPEARA 013 Cloudy ed NCE 07:45 URINE NEGATIV NEG complet GLUCOSE 013 E ed - 07:45 DIPSTIC K URINE NEGATIV NEG complet BILIRUB 013 E ed IN - 07:45 DIPSTIC K URINE NEGATIV NEG complet KETONE 013 E mg/dL ed 07:45 URINE 07-28-2 Greater 1.005-1 complet SPECIFI 013 than .030 ed C 07:45 or GRAVITY equal to 1.030 URINE 06-05-2 NEGATIV NEG complet BLOOD 013 E ed 07:45 URINE 06-05-2 6.0 UNK 5.0-8.5 complet PH 013 ed 07:45 URINE 06-05-2 2+ NEG complet PROTEIN 013 mg/dL ed - 07:45 DIPSTIC K URINE 06-05-2 0.2 NEG complet UROBILI 013 E.U./dL ed NOGEN - 07:45 DIPSTIC K URINE 06-05-2 NEGATIV NEG complet NITRATE 013 E ed - 07:45 DIPSTIC K URINE 06-05-2 NEGATIV NEG complet LEUK 013 E ed ESTERAS 07:45 E URINE 06-05-2 OCC 0 complet RBC 013 rbc/hpf ed 07:45 URINE 06-05-2 TRACE O complet BACTERI 013 ed A 07:45 Procedures Procedure DOS Code Location Performer Comment BLD GLU A4253 [facility] T STRIPS #591 #591 HOME BLD GLU MON-50 BLD GLU A4253 [facility] 6 [facility] PH[facility] T STRIPS #591 #591 HOME BLD GLU MON-50 BLD GLU A4253 [facility] 6 PHARMACY PHARMACY T STRIPS #591 #591 HOME BLD GLU MON-50 BLD GLU A4253 [facility] 6 PHARMACY PHARMACY T STRIPS #591 #591 HOME BLD GLU MON-50 CATARACT 56506 [facility] REMOVAL 6 [facility] CATARACT 67615 [facility] REMOVAL 6 [facility] BLD GLU A4253 [facility]AG 6 PHARMACY PHARMACY T STRIPS #591 #591 HOME [place]-50 [place] [address] [facility] THERAPY/P INC INC ROPHYLAXI S /DX 1ST TO 1 HR THERAPEUT 26189 [facility] IC 6 [facility] INJECTION INC INC IV PUSH EACH NEW DRUG RADIOLOGI 62767 [facility] C EXAM 6 [facility] CHEST 2 INC INC VIEWS FRONTAL&L ATERAL ECG 91524 [facility] ROUTINE 6 [facility] W/LEAST P 12 LDS I&R ONLY CREATINE 22006 [facility] KINASE 6 [facility] TOTAL INC INC ECG 91926 [facility] ROUTINE 6 [facility] ECG INC INC W/LEAST 12 LDS TRCG ONLY W/O I&[place] [address] [facility] ALL HEAD/BRAI 6 MEDICAL N W/O IMAGING CONTRAST ASS MATERIAL FINAL G9638 [facility] ALL REPORTS 6 MEDICAL W/O DOC IMAGING 1/MORE ASS DOSE REDUCTION TECH COMPREHEN 80142 [facility] SIVE 6 [facility] METABOLIC INC INC PANEL CREATINE 21038 [facility] KINASE MB 6 [facility] [place] [address] [facility] LACTATE 6 [facility] INC INC COLLECTIO 69114 [facility] N VENOUS 6 [facility] [place] [address] [facility] TROPONIN 6 [facility] QUANTITAT INC INC LYNN BLOOD 02809 [facility] COUNT 6 [facility] COMPLETE INC INC AUTO&AUTO DIFRNTL WBC LIPID 97541 A Alexa MARTINEZ PANEL 6 JORDANA PORTILLO PSC HEMOGLOBI 28086 A Alexa MARTINEZ N 6 JORDANA PORTILLO GLYCOSYLA PSC BRAN A1C IIV4 VACC 23606 A Alexa MARTINEZ PRESRV 5 JORDANA PORTILLO FREE 0.5 PSC ML FOR IM USE IM ADM 75002 A Alexa MARTINEZ PRQ ID 5 JORDANA PORTILLO SUBQ/IM PSC NJXS 1 VACCINE DIRECT G0154 NURSES NURSES SKILL 5 REGISTRY REGISTRY N[facility]/HOSPIC E EA 15 MIN DIRECT G0154 NURSES NURSES SKILL 5 REGISTRY REGISTRY NURSE & [facility] HH/HOSPIC E EA 15 MIN STERILE A4217 NURSES NURSES WATER/ERICH 5 REGISTRY REGISTRY INE 500 & HOME HE & HOME HE ML GAUZE A6402 NURSES NURSES NON-IMPRE 5 REGISTRY REGISTRY G STERL & HOME HE & HOME HE 16 SQ/< W/O ADHES BORDR GLUCOSE 69382 A Alexa MARTINEZ QUANTITAT 5 JORDANA PORTILLO LYNN BLOOD PSC XCPT REAGENT STRIP INCISION 28519 ISRAEL MCKEE & 5 PHYSICIAN U [facility] PILONIDAL CYST SIMPLE EXC B9 34662 A Alexa MARTINEZ LESION 5 JORDANA PORTILLO MRGN XCP PSC SK TG T/A/L 0.6-1[place] [address] [facility] SURG 5 DIAGNOSTI DIAGNOSTI PATHOLOGY [facility] GROSS&NELSON ROSCOPIC EXAM HEMOGLOBI 75299 A Alexa MARTINEZ N 5 JORDANA PORTILLO GLYCOSYLA PSC BRAN A1C GLUCOSE 36256 A Alexa MARTINEZ QUANTITAT 5 JORDANA PORTILLO LYNN BLOOD PSC XCPT REAGENT STRIP GASTRIC 42306 [facility] EMPTYING 5 [facility] IMAGING INC INC STUDY TECHNETIU A9541 [facility] M TC-99M 5 [facility] SULFUR INC INC COLLOID DX UP TO 20 MCI HEMOGLOBI 82739 A Alexa ARAIZA MICHELLE N 5 JORDANA PORTILLO GLYCOSYLA PSC BRAN A1C IRON 18829 [facility] BINDING 5 [facility] [place] [address] [facility] GAMMAGLOB 5 [facility] ULIN IGA INC INC IGD IGG IGM EACH COLLECTIO 35495 [facility] N VENOUS 5 [facility] [place]LO[place] [address] [facility] IRON 5 [facility] INC INC COMPREHEN 57312 [facility] SIVE 5 [facility] [place] [address] [facility] FERRITIN 5 [facility] INC INC BLOOD 65901 [facility] COUNT 5 [facility] COMPLETE INC INC AUTO&AUTO DIFRNTL WBC FLUORESCE 33148 [facility] NT 5 [facility] NONNFCT INC [place] [address] [facility] ABDOMINAL 5 [facility] REAL INC INC TIME W/IMAGE LIMITED ADJT TIS 67176 [facility] TRNS/REAR 5 [facility] GMT INC INC F/C/C/M/N /A/G/H/F 10SQCM/< GLUC BLD 62283 [facility] GLUC MNTR 5 [facility] DEV INC INC CLEARED FDA SPEC HOME USE ANES 35013 [facility] FAJARDO HECTOR INTEG 5 ANESTH MUSC & OF THE NRV HEAD BLUE NECK&[place] [address] [facility], PICKLESIM SURG 5 [facility] ER [facility] PATHOLOGY GROSS&NELSON ROSCOPIC EXAM BLOOD 31849 [facility] COUNT 5 [facility] COMPLETE INC INC AUTO&AUTO DIFRNTL WBC ECG 69690 [facility] ROUTINE 5 [facility] ECG INC INC W/LEAST 12 LDS TRCG ONLY W/O I&R ECG 09490 [facility] JR ROUTINE 5 [facility] W/LEAST P 12 LDS I&R ONLY COLLECTIO 97144 [facility] N VENOUS 5 [facility] [place] [address] [facility] ABDOMEN & 5 MEDICAL MARGARITA PELVIS IMAGING W/O ASS CONTRAST MATERIAL CREATININ 00161 [facility] E BLOOD 5 [facility] [place] [address] [facility] UREA 5 [facility] NITROGEN INC INC QUANTITAT LYNN COLLECTIO 26954 [facility] N VENOUS 5 [facility] BLOOD INC INC VENIPUNCT URE GLUC BLD 87818 [facility] GLUC MNTR 5 [facility] DEV INC INC CLEARED FDA SPEC HOME USE ANES 02897 [facility] LOWER 5 ANESTH SHE INTESTINE OF THE BLUE [place] [address] [facility], ELVI NELSON SURG 5 [facility] PATHOLOGY GROSS&NELSON ROSCOPIC EXAM COLSC FLX 21170 [facility] W/RMVL 5 [facility] OF TUMOR INC INC POLYP LESION SNARE TQ PCV13 89815 A Alexa ARAIZA MICHELEL VACCINE 4 JORDANA PORTILLO FOR PSC INTRAMUSC ULAR USE IIV3 96656 A Alexa ARAIZA MICHELLE VACCINE 4 JORDANA PORTILLO SPLIT PSC VIRUS 0.5 ML DOSAGE IM USE HEMOGLOBI 64736 A Alexa ARAIZA MICHELLE N 4 JORDANA PORTILLO GLYCOSYLA PSC BRAN A1C GLUCOSE 88013 A Alexa ARAIZA MICHELLE QUANTITAT 4 JORDANA PORTILLO LYNN BLOOD PSC XCPT REAGENT STRIP RADIOLOGI 59503 [place] RIN C EXAM 4 MEDICAL MARGARITA CHEST 2 IMAGING VIEWS ASS FRONTAL&L ATERAL ECHO 89858 MITESH RUVALCABA MARCOS TTHRC R-T 4 MEDICAL 2D SERV W/WOM-MOD FOUNDATIO E COMPL SPEC&COLR D LIPID 57895 A Alexa ARAIZA MICHELLE PANEL 4 JORDANA PORTILLO PSC HEMOGLOBI 25621 A Alexa ARAIZA MICHELLE N 4 JORDANA PORTILLO GLYCOSYLA PSC RBAN A1C ALBUMIN 99003 A Alexa MARTINEZ URINE 4 JORDANA PORTILLO MICROALBU PSC MIN SEMIQUANT ITATIVE COMPREHEN 27174 [facility] SIVE 4 DIAGNOSTI DIAGNOSTI METABOLIC CS CS PANEL HEMOGLOBI 14735 [facility] MICHELLE N 4 GLYCOSYLA BRAN A1C RADIOLOGI 11515 RIN RIN C 4 MARGARITA MARGARITA EXAMINATI ON CHEST SINGLE VIEW FRONTAL HEMOGLOBI 91126 [facility] MICHELLE N 4 GLYCOSYLA BRAN A1C IIV3 63491 JOSE G ARCHULETA MICHELLE VACCINE 3 SPLIT VIRUS 0.5 ML DOSAGE IM USE IM ADM 03393 JOSE G ARCHULETA MICHELLE PRQ ID 3 SUBQ/IM NJXS 1 VACCINE GLUCOSE 33626 A Alexa ARAIZA MICHELLE QUANTITAT 3 JORDANA PORTILLO LYNN BLOOD PSC XCPT REAGENT STRIP HEMOGLOBI 54281 A Alexa ARAIZA MICHELLE N 3 JORDANA PORTILLO GLYCOSYLA PSC BRAN A1C ALBUMIN 67221 A Alexa ARAIZA MICHELLE URINE 3 JORDANA PORTILLO MICROALBU PSC MIN SEMIQUANT ITATIVE LIPID 64113 A Alexa ARAIZA MICHELLE PANEL 3 JORDANA PORTILLO PSC COLLECTIO 26170 A Alexa ARAIZA MICHELLE N VENOUS 3 JORDANA [place] [address] RIN RIN ABDOMEN & 3 MARGARITA MARGARITA PELVIS W/O CONTRAST MATERIAL BASIC 98024 [facility] METABOLIC 3 [facility] PANEL INC INC CALCIUM TOTAL BASIC 01804 [facility] METABOLIC 3 [facility] PANEL INC INC CALCIUM TOTAL REVSC 45829 [facility] OPN/PRQ 3 [facility] FEM/POP INC INC W/ATHRC/A NGIOP SM VSL LOCM Q9966 [facility] 200-299 3 [facility] MG/ML INC INC IODINE CONCENTRA TION PER ML GUIDE C1769 [facility] WIRE 3 [facility] INC INC CATHETER C1725 [facility] TRANSLUMI 3 [facility] NAL INC INC ANGIOPLAS TY NON-LASER CLOSURE C1760 [facility] DEVICE 3 [facility] VASCULAR INC INC ECG 10826 NICHOLAS JR NICHOLAS JR ROUTINE 3 DWI DWI ECG W/LEAST 12 LDS I&R ONLY CATHETER C1887 [facility] GUIDING 3 [facility] INC INC INTRDUCR/ C1894 [facility] SHEATH 3 [facility] NOT GUID INC INC INTRACARD EP NON-LASR CATHETER C1724 [facility] TRANSLUMI 3 [facility] NAL INC INC ATHERECTO MY ROTATIONA L REVASCULA 59211 [facility] RIZATION 3 [facility] ILIAC INC INC ARTERY ANGIOP 1ST VSL COAGULATI 26019 [facility] ON TIME 3 [facility] ACTIVATED INC INC INTRDUCR/ C1766 [facility] SHEATH 3 [facility] GUID INC INC INTRACARD EP NOT [place]AY INJECTION J1644 [facility] HEPARIN 3 [facility] SODIUM INC INC PER 1000 UNITS PROTHROMB 72324 [facility] IN TIME 3 [facility] INC INC BLOOD 60272 [facility] COUNT 3 [facility] COMPLETE INC INC AUTO&AUTO DIFRNTL WBC THROMBOPL 95892 [facility] ASTIN 3 [facility] TIME INC INC PARTIAL PLASMA/WH OLE BLOOD COMPREHEN 37095 [facility] SIVE 3 [facility] METABOLIC INC INC PANEL COLLECTIO 02459 A Alexa ARAIZA MICHELLE N VENOUS 3 JORDANA PORTILLO BLOOD PSC VENIPUNCT URE HEMOGLOBI 29203 A Alexa ARAIZA MICHELLE N 3 JORDANA PORTILLO GLYCOSYLA PSC BRAN A1C LIPID 58329 A Alexa ARAIZA MICHELLE PANEL 3 JORDANA PORTILLO PSC BASIC 94246 [facility] METABOLIC 3 [facility] PANEL INC INC CALCIUM TOTAL REVSC 33287 [facility] OPN/PRQ 3 [facility] FEM/POP INC INC W/STNT/AT HRC/ANGIO P SM VSL GLUC BLD 60597 [facility] GLUC MNTR 3 [facility] DEV INC INC CLEARED FDA SPEC HOME USE LOCM Q9966 [facility] 200-299 3 [facility] MG/ML INC INC IODINE CONCENTRA TION PER ML COAGULATI 39799 [facility] ON TIME 3 [facility] ACTIVATED INC INC INTRDUCR/ C1894 [facility] SHEATH 3 [facility] NOT GUID INC INC INTRACARD EP NON-LASR INTRDUCR/ C1766 [facility] SHEATH 3 [facility] GUID INC INC INTRACARD EP NOT [place]AY STENT C1876 [facility] NON-COATE 3 [facility] D/NON-COV INC INC ERED W/DELIVER Y SYSTEM INJECTION J1644 [facility] [facility] SODIUM INC INC PER 1000 UNITS ECG 51072 PAULY COATS ROUTINE 3 MICHELLE MICHELLE ECG W/LEAST 12 LDS I&R ONLY CATHETER C1887 [facility] GUIDING 3 [facility] CLOSURE C1760 [facility] DEVICE 3 [facility] VASCULAR INC INC CATHETER C1725 [facility] TRANSLUMI 3 [facility] NAL INC INC ANGIOPLAS TY NON-LASER GUIDE C1769 [facility] WIRE 3 [facility] INC INC PROTHROMB 58128 [facility] IN TIME 3 [facility] INC INC BLOOD 51972 [facility] COUNT 3 [facility] COMPLETE INC INC AUTO&AUTO DIFRNTL WBC COMPREHEN 76372 [facility] SIVE 3 [facility] METABOLIC INC INC PANEL NON-INVAS 32299 RIN RIN LYNN 3 MARGARITA MARGARITA PHYSIOLOG IC STUDY EXTREMITY 3 LEVLS LIPID 57804 JOSE G ARCHULETA MICHELLE PANEL 3 HEMOGLOBI 29262 JOSE G ARCHULETA MICHELLE N 3 GLYCOSYLA BRAN A1C BASIC 75266 [facility] METABOLIC 2 DIAGNOSTI DIAGNOSTI PANEL CS CS CALCIUM TOTAL IM ADM 05478 JOSE G MARITNEZ PRQ ID 2 SUBQ/IM NJXS 1 VACCINE TRANSFERA 36652 JOSE G MARTINEZ SE 2 ASPARTATE AMINO AST SGOT ALBUMIN 03938 JOSE G MARTINEZ URINE 2 MICROALBU MIN QUANTIATI VE TRANSFERA 72773 JOSE G MARTINEZ SE 2 ALANINE AMINO ALT SGPT BASIC 39141 [facility] METABOLIC 2 DIAGNOSTI DIAGNOSTI PANEL CS CS CALCIUM TOTAL LIPID 40839 JOSE G ARCHULETA MICHELLE PANEL 2 HEMOGLOBI 29868 JOSE G ARCHULETA MICHELLE N 2 GLYCOSYLA BRAN A1C GLUCOSE 05434 SAMIRA SAMIRA QUANTITAT 2 ROSANNA ROSANNA LYNN BLOOD XCPT REAGENT STRIP HEMOGLOBI 11734 SAMIRA SAMIRA N 2 ROSANNA ROSANNA GLYCOSYLA BRAN A1C BASIC 85250 [facility] METABOLIC 2 DIAGNOSTI DIAGNOSTI PANEL CS CS CALCIUM TOTAL LIPID 84189 SAMIRA SAMIRA PANEL 2 [place] [address] [facility] PROSTATE 2 DIAGNOSTI DIAGNOSTI SPECIFIC CS CS ANTIGEN TOTAL TRANSFERA 69661 SAMIRA SAMIRA SE 2 ROSANNA ROSANNA ASPARTATE AMINO AST SGOT TRANSFERA 64628 [facility] SE 2 DIAGNOSTI DIAGNOSTI ASPARTATE CS CS AMINO AST SGOT BASIC 67450 [facility] METABOLIC 2 DIAGNOSTI DIAGNOSTI PANEL CS CS CALCIUM TOTAL LIPID 91461 QUE[facility] QUEST PANEL 2 DIAGNOSTI DIAGNOSTI CS CS HEMOGLOBI 05533 QUEST QUEST N 2 DIAGNOSTI DIAGNOSTI GLYCOSYLA CS CS BRAN A1C COLLECTIO 56288 SAMIRA SAMIRA N VENOUS 2 ROSANNA ROSANNA BLOOD VENIPUNCT URE HEMOGLOBI 54876 A C A C N 1 JORDANA SILVEIRA MD GLYCOSYLA PSC PSC BRAN A1C LIPID 38940 [facility]ST [facility]ST PANEL 1 DIAGNOSTI DIAGNOSTI CS CS BASIC 63470 [facility] QUEST METABOLIC 1 DIAGNOSTI DIAGNOSTI PANEL CS CS CALCIUM TOTAL TRANSFERA 81247 QUEST QUEST SE 1 DIAGNOSTI DIAGNOSTI ASPARTATE CS CS AMINO AST SGOT TRANSFERA 69460 [facility] SE 1 DIAGNOSTI DIAGNOSTI ASPARTATE CS CS AMINO AST SGOT BASIC 27680 [facility]ST METABOLIC 1 DIAGNOSTI DIAGNOSTI PANEL CS CS CALCIUM TOTAL LIPID 20453 [facility] QUEST PANEL 1 DIAGNOSTI DIAGNOSTI CS CS HEMOGLOBI 50671 A C SAMIRA N 1 JORDANA PORTILLO [facility] GLYCOSYLA PSC BRAN A1C 3D 49521 [place] RIN RENDERING 1 MEDICAL MARGARITA IMAGING W/INTERP& [place] [address] [facility] ABDOMEN & 1 MEDICAL MARGARITA PELVIS IMAGING W/CONTRAS ASS T MATERIAL COMPREHEN 60824 [facility] SIVE 1 [facility] [place] [address] [facility] AMYLASE 1 [facility] [place] [address] [facility] FOLIC 1 [facility] [place] [address] [facility] IRON 1 [facility] INC INC IRON 47421 [facility] BINDING 1 [facility] CAPACITY INC INC BLOOD 55541 [facility] COUNT 1 [facility] COMPLETE INC INC AUTO&AUTO DIFRNTL WBC FLUORESCE 35007 [facility] NT 1 [facility] NONNFCT INC INC AGT ANTB TITER EA ANTIBODY CYANOCOBA 80237 [facility] LUBNA 1 [facility] VITAMIN INC INC B-12 [place] [address] [facility] FERRITIN 1 [facility] [place] [address] [facility] LIPASE 1 [facility] INC INC CV STRS 53019 [facility] FALLUJI TST 1 PHYSICIAN JULIETH XERS&/OR S GROUP RX CONT ECG W/O I&R CV STRS 74961 [facility] TST 1 [facility] XERS&/OR INC INC RX CONT ECG TRCG ONLY MYOCARDIA 95483 [facility] FALLU[facility] L SPECT 1 PHYSICIAN JULIETH MULTIPLE S GROUP STUDIES HEMOGLOBI 52559 A C SAMIRA N 1 JORDANA MARTE GLYCOSYLA PSC BRAN A1C LIPID 04940 [facility] PANEL 1 [facility] ALBUMIN 54810 A Alexa HOGAN URINE 1 JORDANA MARTE MICROALBU PSC MIN SEMIQUANT ITATIVE BASIC 33885 [facility] METABOLIC 1 [facility] [place] [address] [facility] PROSTATE 1 [facility] SPECIFIC ANTIGEN TOTAL TRANSFERA 53641 [facility] SE 1 [facility] ASPARTATE AMINO AST SGOT RADEX 14455 [place] SPINE 1 [facility] LUMBOSACR CLINIC AL 2/3 PSC VIEWS RADEX 96396 [facility] SPINE 1 [facility] LUMBOSACR INC INC AL 2/3 VIEWS MRI 39073 [facility] SPINAL 0 [facility] CANAL INC INC LUMBAR W/O CONTRAST MATERIAL TRANSFERA 22320 [facility] SE 0 [facility] ASPARTATE AMINO AST SGOT BASIC 03603 [facility] METABOLIC 0 [facility] PANEL CALCIUM TOTAL LIPID 67870 [facility] PANEL 0 [facility] HEMOGLOBI 51446 [facility] N 0 [facility] GLYCOSYLA BRAN A1C LANCETS A4259 M E D M E D PER BOX 0 SUPPLIES SUPPLIES OF 100 BLD GLU A4253 M E D M E D TEST/REAG 0 SUPPLIES SUPPLIES T STRIPS HOME BLD GLU MON-50 BLD GLU A4253 M E D M E D TEST/REAG 0 SUPPLIES SUPPLIES T STRIPS HOME BLD GLU MON-50 LANCETS A4259 M E D M E D PER BOX 0 SUPPLIES SUPPLIES OF 100 HEMOGLOBI 60690 Janelle HOGAN, N 0 JORDANA MALONE GLYCOSYLA PSC BRAN A1C LIPID 64625 [facility] PANEL 0 [facility] BASIC 88633 [facility] METABOLIC 0 [facility] PANEL CALCIUM TOTAL TRANSFERA 54914 [facility] SE 0 [facility] ASPARTATE AMINO AST SGOT BLOOD 59276 [facility] COUNT 0 [facility] COMPLETE AUTO&AUTO DIFRNTL WBC LANCETS A4259 M E D M E D PER BOX 0 SUPPLIES SUPPLIES OF 100 BLD GLU A4253 M E D M E D TEST/REAG 0 SUPPLIES SUPPLIES T STRIPS HOME BLD GLU MON-50 LANCETS A4259 M E D M E D PER BOX 0 SUPPLIES SUPPLIES OF 100 BLD GLU A4253 M E D M E D TEST/REAG 0 SUPPLIES SUPPLIES T STRIPS HOME BLD GLU MON-50 BASIC 59489 LAB DEXTER LAB DEXTER METABOLIC 0 AMERIC AMERIC PANEL HOLDING HOLDING CALCIUM TOTAL LIPID 18024 LAB DEXTER LAB DEXTER PANEL 0 AMERIC AMERIC HOLDING HOLDING HEMOGLOBI 93170 LAB DEXTER LAB DEXTER N 0 AMERIC AMERIC GLYCOSYLA [place] [address] LAB DEXTER LAB DEXTER PROSTATE 0 AMERIC AMERIC SPECIFIC HOLDING HOLDING ANTIGEN TOTAL TRANSFERA 19003 LAB DEXTER LAB DEXTER SE 0 AMERIC AMERIC ASPARTATE HOLDING HOLDING AMINO AST SGOT COLSC FLX 16737 ALLRAN ALLRAN W/RMVL 9 JR VLADIMIR, OF TUMOR SAMUEL Ol[place] [address] PATHOLOGY PATHOLOGY SURG 9 & & PATHOLOGY CYTOLOGY CYTOLOGY LAB LAB GROSS&NELSON ROSCOPIC EXAM OTHER 4513 [facility] ENDOSCOPY 9 [facility] OF SMALL INC INC INTESTINE ENDOSCOPI 4542 [facility] C 9 [facility] POLYPECTO INC INC MY OF LARGE INTESTINE GLUC BLD 33469 [facility] GLUC MNTR 9 [facility] DEV INC [place] [address] [facility] INFUSION 9 [facility] THERAPY/P INC INC ROPHYLAXI S /DX 1ST TO 1 HR EGD 89998 ALLRAN ALLRAN TRANSORAL 9 JR VLADIMIR, BIOPSY SAMUEL Oliva SINGLE/MU LTIPLE ESOPHAGOG 92535 [facility] ASTRODUOD 9 [facility] ENOSCOPY INC INC TRANSORAL DIAGNOSTI C INITIAL 78770 ALLRAN ALLRAN INPATIENT 9 JR VLADIMIR, CONSULT SAMUEL BAKER Pj NEW/ESTAB [place] [address] [place] [address] [place], ABDOMEN 9 MEDICAL MATY W/O IMAGING CONTRAST ASSOCIATE MATERIAL S 3D 26398 [place] R[place], RENDERING 9 MEDICAL MATY IMAGING W/INTERP& ASSOCIATE POSTPROC S DIFF WORK STATION TRANSFUSI 9904 [facility] ON OF 9 [facility] PACKED INC INC CELLS CT PELVIS 83820 [place] R[place], W/O 9 MEDICAL MATY CONTRAST IMAGING MATERIAL ASSOCIATE S RADIOLOGI 45275 [place] Alexa ANNE EXAM 9 MEDICAL JUMANA P CHEST 2 IMAGING VIEWS ASSOCIATE FRONTAL&L S ATERAL ECG 58048 [facility] PETERSON, ROUTINE 9 [facility] W/LEAST PROF SERV 12 LDS I&R ONLY THERAPEUT 49529 LICK[place] PAULY, IC 9 [facility] A PROPHYLAC INTERNAL TIC/DX MED INJECTION SUBQ/IM THERAPEUT 69459 [place] PAULY, IC 9 [facility] A PROPHYLAC INTERNAL TIC/DX MED INJECTION SUBQ/IM THERAPEUT 50066 JEFERSON LELAND IC 9 VAL[facility] JR, PROPHYLAC INTERNAL YOSSI F TIC/DX MED INJECTION SUBQ/IM THERAPEUT 32050 [place]ICK[place] PAULY, IC 9 [facility] A PROPHYLAC INTERNAL TIC/DX MED INJECTION SUBQ/[place] [address] COMBINED COMBINED THYROID 9 PHYSICIAN PHYSICIAN STIMULATI S LAB S LAB NG HORMONE TSH CYANOCOBA 37168 LAB DEXTER LAB DEXTER LUBNA 9 AMERIC AMERIC VITAMIN HOLDING HOLDING B-12 SYPHILIS 96125 LAB DEXTER LAB DEXTER TEST 9 AMERIC AMERIC QUANTITAT HOLDING HOLDING LYNN COMPREHEN 86348 COMBINED COMBINED SIVE 9 PHYSICIAN PHYSICIAN METABOLIC S LAB S LAB PANEL HEMOGLOBI 98839 COMBINED COMBINED N 9 PHYSICIAN PHYSICIAN GLYCOSYLA S LAB S LAB BRAN A1C LIPID 43658 COMBINED COMBINED PANEL 9 PHYSICIAN PHYSICIAN S LAB S LAB COMPREHEN 01017 [facility] SIVE 9 [facility] METABOLIC INC INC PANEL L HRT [address] [facility] FALLU, CATHETERI 9 FAMILY ADELINE M ZATION PHYSICIAN [place] [address] [facility], C-CATHJ 9 FAMILY NESHIRAR M F/SLCTV C PHYSICIAN ANGRPH PSC I SI&R 88213 [facility] FALLUJI, F/NJX PX 9 FAMILY NEZAR M DURING PHYSICIAN C-CATHJ PSC VENTR&/AT R ANGRPH I SI&R 11826 [facility] FALLUJI, F/NJX PX 9 FAMILY NEZAR M DURING PHYSICIAN C-CATHJ PSC PULM&/OR SELECT ECG 32703 [place]UN ROUTINE 9 [place] III, ECG CLINIC SUZY L W/LEAST PSC 12 LDS I&R ONLY TCAT PLMT 95082 [facility], 9 FAMILY ADELINE M INTRACORO PHYSICIAN CULLENY PSC STENT PRQ 1 VESSEL INJECTION 22405 [facility] FALLU[facility]I, CARDIAC 9 FAMILY MANAR M CATHJ L PHYSICIAN VENTR/L PSC ATR ANGIOGRAP H CREATININ 15195 [facility] E BLOOD 9 [place] [address] [facility] UREA 9 [facility] NITROGEN INC INC QUANTITAT LYNN PROTHROMB 49540 [facility] IN TIME 9 [facility] INC INC ECHO 44814 [facility] TRANSTHOR 9 [facility] AC R-T 2D INC INC W/WO M-MODE REC COMP DOP 02838 [facility] ECHOCARD 9 [facility] COLOR INC INC FLOW VELOCITY MAPPING NON-INVAS 92070 [facility]NN ANNE 9 MEDICAL JUMANA P PHYSIOLOG IMAGING IC STUDY ASSOCIATE EXTREMITY S 3 LEVLS DOPPLER 93983 [facility] ECHOCARD 9 [facility] PULSE INC INC WAVE W/SPECTRA L DISPLAY ECHO 25872 [facility] R-T 9 FAMILY NEZAR M 2D PHYSICIAN W/WOM-MOD PSC E COMPL SPEC&COLR D NATRIURET 16228 [facility] IC 9 [facility] [place] [address] [facility] THYROID 9 [facility] STIMULATI INC INC NG HORMONE TSH BLOOD 32467 [facility] COUNT 9 [facility] COMPLETE INC INC AUTO&AUTO DIFRNTL WBC COMPREHEN 34179 [facility] SIVE 9 [facility] METABOLIC INC INC PANEL COMPREHEN 02485 [facility] SIVE 9 [facility] METABOLIC INC INC PANEL LIPID 98705 [facility] PANEL 9 [facility] INC INC ALBUMIN 67988 [facility] URINE 9 [facility] MICROALBU INC INC MIN QUANTIATI VE ALBUMIN 68182 [facility] URINE 8 [facility] MICROALBU INC INC MIN QUANTIATI VE LIPID 71923 [facility] PANEL 8 [facility] INC INC HEMOGLOBI 44130 [facility] N 8 [facility] GLYCOSYLA INC INC BRAN A1C COMPREHEN 00728 [facility] SIVE 8 [facility] METABOLIC INC INC PANEL COMPREHEN 23186 [facility] SIVE 8 [facility] METABOLIC INC INC PANEL MYOCRD 38238 [facility] PRFUJ IMG 8 [facility] TOMOG INC INC 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 MYOCRD 29471 [facility] PRFUJ STD 8 [facility] EJEC FXJ INC INC MYOCRD 49587 [facility] PRFUJ STD 8 [facility] WALL INC INC MOTION QUAL/CHAR STD HEMOGLOBI 25829 [facility] N 8 [facility] GLYCOSYLA INC INC BRAN A1C LIPID 08906 [facility] PANEL 8 [facility] INC INC ALBUMIN 12123 [facility] URINE 8 [facility] MICROALBU INC INC MIN QUANTIATI VE CV STRS 33182 [facility] COATS, TST 8 [facility] XERS&/OR HOSPITAL RX CONT PROF SERV ECG W/O I&R CV STRS 47492 [facility] COATS, TST 8 [facility] XERS&/OR HOSPITAL RX CONT PROF SERV ECG I&R ONLY CV STRS 37814 [facility] TST 8 [facility] XERS&/OR INC INC RX CONT ECG TRCG ONLY ECG 62004 LICKING CHRIS, ROUTINE 8 [facility] ECG INTERNAL W/LEAST MED 12 LDS W/I&R ALBUMIN 30572 [facility] URINE 8 [facility] MICROALBU INC INC MIN QUANTIATI VE LIPID 21206 [facility] PANEL 8 [facility] INC INC HEMOGLOBI 10543 [facility] N 8 [facility] GLYCOSYLA INC INC BRAN A1C COMPREHEN 11996 [facility] SIVE 8 [facility] METABOLIC INC INC PANEL ALBUMIN 09474 LICK[place] CHRIS, URINE 8 [facility] MICROALBU INTERNAL MIN MED SEMIQUANT ITATIVE Encounters Encounter Start End Date Code Location Performer Type Date OFFICE 95044 Janelle ARAIZA OUTPATIEN 7 7 JORDANA PORTILLO T VISIT PSC 25 MINUTES OFFICE 24387 A C JOSE G OUTPATIEN 7 7 JORDANA PORTILLO T VISIT PSC 25 MINUTES [facility]OSP[facility] - 6 6 [facility] OUTPATIEN INC T EMERGENCY 03839 [facility] DEPT 6 6 [facility] VISIT INC HIGH SEVERITY& THREAT FUNJ OFFICE 99017 A C JOSE G MICHELLE OUTPATIEN 6 6 JORDANA PORTILLO T VISIT PSC 15 MINUTES OFFICE 39081 A C JOSE G MICHELLE OUTPATIEN 6 6 JORDANA PORTILLO T VISIT PSC 10 MINUTES OFFICE 71394 A C JOSE G MICHELLE OUTPATIEN 6 6 JORDANA PORTILLO T VISIT PSC 25 MINUTES OFFICE 45321 A C JOSE G MICHELLE OUTPATIEN 5 5 JORDANA PORTILLO T VISIT PSC 15 MINUTES OFFICE 71646 A C DEWAYNEPELA OUTPATIEN 5 5 JORDANA HOUSTON T VISIT PSC 15 MINUTES OFFICE 02012 A C JOSE G MICHELLE OUTPATIEN 5 5 JORDANA PORTILLO T VISIT PSC 15 MINUTES OFFICE 73289 A C JOSE G MICHELLE OUTPATIEN 5 5 JORDANA PORTILLO T VISIT PSC 15 MINUTES OFFICE 83691 A C JOSE G MICHELLE OUTPATIEN 5 5 JORDANA PORTILLO T VISIT PSC 15 MINUTES HOME NUR[facility]ES [facility], 5 5 REGISTRY INPATIENT & HOME HE OFFICE 02293 A C JOSE G MICHELLE OUTPATIEN 5 5 JORDANA PORTILLO T VISIT PSC 15 MINUTES HOME NURSES HEALTH, 5 5 REGISTRY INPATIENT & HOME HE OFFICE 53122 [facility] ELROY TORossana OUTPATIEN 5 5 PHYSICIAN T VISIT S GROUP 15 MINUTES OFFICE 69925 [facility] OUTPATIEN 5 5 [facility] T VISIT INC 10 MINUTES HOSPITAL [facility] - 5 5 [facility] OUTPATIEN INC T EMERGENCY 44982 ISRAEL MCKEE DEPT 5 5 PHYSICIAN U CHANDLER VISIT S, [facility] HIGH SEVERITY& THREAT FUNJ OFFICE 74938 A Alexa MARTINEZ OUTPATIEN 5 5 JORDANA PORTILLO T VISIT PSC 15 MINUTES OFFICE 74754 A Alexa MARTINEZ OUTPATIEN 5 5 JORDANA PORTILLO T VISIT PSC 15 MINUTES HOSPITAL [facility] - 5 5 [facility] OUTPATIEN INC T OFFICE 16571 A Alexa MARTINEZ OUTPATIEN 5 5 JORDANA PORTILLO T VISIT PSC 25 MINUTES HOSPITAL [facility] - 5 5 [facility] OUTPATIEN INC T OFFICE 12916 MITESH GRIFFITHS ANT CONSULTAT 5 5 MEDICAL ION SERV NEW/ESTAB FOUNDATIO PATIENT N 40 MIN [facility]OSPITAL [facility] - 5 5 [facility] OUTPATIEN INC T OFFICE 32142 [facility] ALLMIRACLE JR OUTPATIEN 5 5 PHYSICIAN LUL T VISIT S GROUP 15 MINUTES HOSPITAL [facility] - 5 5 [facility] OUTPATIEN INC [facility] - 5 5 [facility] OUTPATIEN INC T OFFICE 80095 HARRIETT LORENZANA OUTPATIEN 5 5 DES DES T NEW 20 MINUTES [facility]OSPITAL [facility] - 5 5 [facility] OUTPATIEN INC T OFFICE 63715 [facility] ALLMIRACLE JR OUTPATIEN 5 5 PHYSICIAN LUL T VISIT S GROUP 15 MINUTES HOSPITAL [facility] - 5 5 [facility] OUTPATIEN INC [facility] PRE[facility]ON - 5 5 [facility] OUTPATIEN INC T OFFICE 95075 [facility] ALLMIRACLE JR OUTPATIEN 4 4 PHYSICIAN LUL T NEW 30 S GROUP MINUTES OFFICE 53835 A Alexa MARTINEZ OUTPATIEN 4 4 JORDANA OPRTILLO T VISIT [facility] 25 MINUTES EMERGENCY 00995 [facility] T VISIT PHYS HIGH/URGE NT SEVERITY [facility]OSP[facility] - 4 4 [facility] OUTPATIEN INC OFFICE 28413 A Alexa MARTINEZ OUTPATIEN 4 4 JORDANA PORTILLO T VISIT PSC 25 MINUTES OFFICE 49801 JOSE G MARTINEZ OUTPATIEN 4 4 T VISIT 25 MINUTES EMERGENCY 07039 [facility] DEPT 4 4 [facility] VISIT HIGH SEVERITY& THREAT FUN OFFICE 15994 JOSE G MARTINEZ OUTPATIEN 4 4 T VISIT 25 MINUTES OFFICE 77481 A Alexa MARTINEZ OUTPATIEN 3 3 JORDANA PORTILLO T VISIT PSC 25 MINUTES Emergency DK Patel (ER) 3 07:49 3 09:45 [facility] EMERGENCY 76654 EDUARDO PATEL DEPT 3 3 EMERGENCY ONEIL VISIT SERVICES HIGH SEVERITY& THREAT [facility]ON - 3 3 [facility]EN [facility] PRE[facility]ON - 3 3 [facility]EN [facility] PRESTON - 3 3 [facility] OUTPATIEN [facility] OFFICE 50473 A Alexa MARTINEZ OUTPATIEN 3 3 JORDANA PORTILLO T VISIT PSC 25 MINUTES HOSPITAL [facility] - 3 3 [facility]EN [facility] - 3 3 [facility] PRE[facility]ON - 3 3 [facility] OUTPATIEN [facility] OFFICE 89332 JOSE G ARCHULETA MICHELLE OUTPATIEN 3 3 T VISIT 15 MINUTES OFFICE 43699 JOSE G ARCHULETA MICHELLE OUTPATIEN 3 3 T VISIT 15 MINUTES [facility]OSPITAL [facility] - 3 3 [facility] OUTPATIEN INC T OFFICE 75686 JOSE G ARCHULETA MICHELLE OUTPATIEN 3 3 T VISIT 25 MINUTES OFFICE 91122 JOSE GPAVEL ARCHULETA MICHELLE OUTPATIEN 2 2 T VISIT 25 MINUTES OFFICE 43106 SAMIRA SAMIRA OUTPATIEN 2 2 ROSANNA ROSANNA T VISIT 25 MINUTES OFFICE 60875 SAMIRA SAMIRA OUTPATIEN 2 2 ROSANNA ROSANNA T VISIT 25 MINUTES OFFICE 40754 A C SAMIRA OUTPATIEN 1 1 JORDANA PORTILLO ROSANNA T VISIT PSC 25 MINUTES OFFICE 01712 A C OUTPATIEN 1 1 JORDANA PORTILLO T VISIT PSC 25 MINUTES [facility]OSPITAL [facility] - 1 1 [facility] OUTPATIEN INC T [facility] - 1 1 [facility] OUTPATIEN INC T OFFICE 86792 [place] GABI CONSULTAT 1 1 MEDICAL ION SERV NEW/ESTAB FOUNDATIO PATIENT 60 MIN OFFICE 44998 [facility] FALLUJI OUTPATIEN 1 1 PHYSICIAN JULIETH T VISIT S GROUP 25 MINUTES HOSPITAL [facility] - 1 1 [facility] OUTPATIEN INC T OFFICE 55429 [facility] FALLUJI OUTPATIEN 1 1 PHYSICIAN JULIETH T VISIT S GROUP 25 MINUTES OFFICE 13686 A C SAMIRA OUTPATIEN 1 1 JORDANA PORTILLO ROSANNA T VISIT PSC 25 MINUTES OFFICE 56554 [place] OUTPATIEN 1 1 [place] SANDRA T VISIT CLINIC 15 PSC MINUTES OFFICE 82426 [place] MAT CONSULTAT 1 1 [place] ION CLINIC NEW/ESTAB PSC PATIENT 60 MIN [facility] - 1 1 [facility] OUTPATIEN INC T [facility] - 0 0 [facility] OUTPATIEN INC T OFFICE 22333 A C SAMIRA OUTPATIEN 0 0 JORDANA MARTE T VISIT PSC 25 MINUTES OFFICE 49700 A C SAMIRA OUTPATIEN 0 0 JORDANA MARTE T VISIT PSC 15 MINUTES OFFICE 20426 A C SAMIRA, OUTPATIEN 0 0 JORDANA MALONE T VISIT PSC 25 MINUTES OFFICE 91026 A Alexa SILVEIRA, A OUTPATIEN 0 0 JORDANA Liu T VISIT 5 PSC MINUTES OFFICE 54741 A C SAMIRA, OUTPATIEN 0 0 JORDANA PORTILLO KIRA T NEW 45 PSC MINUTES OFFICE 74392 ALL[facility]AN ALLRAN OUTPATIEN 0 0 JR VLADIMIR, T VISIT SAMUEL Oliva 15 MINUTES OFFICE 64968 ALLRAN ALLRAN OUTPATIEN 9 9 JR VLADIMIR, T VISIT SAMUEL Oliva 15 MINUTES [facility] - 9 9 [facility] T EMERGENCY 88556 EDUARDO YUAN, DEPT 9 9 EMERGENCY JESSICA S VISIT SERVICES HIGH SEVERITY& ASSOCIATE THREAT S [facility] - 9 9 [facility] OFFICE 35678 [facility] B[facility], OUTPATIEN 9 9 EROS SADE A T VISIT 5 INTERNAL MINUTES MED OFFICE 41592 [facility], OUTPATIEN 9 9 EROS SADE A T VISIT 5 INTERNAL MINUTES MED OFFICE 50308 [facility] B[facility], OUTPATIEN 9 9 VALLEY SADE A T VISIT 5 INTERNAL MINUTES MED OFFICE 21208 [facility] MCKEMIE OUTPATIEN 9 9 EROS JR, T VISIT 5 INTERNAL YOSSI F MINUTES MED OFFICE 01069 [facility], OUTPATIEN 9 9 EROS SADE A T VISIT 5 INTERNAL MINUTES MED OFFICE 65340 [facility], OUTPATIEN 9 9 AILIN Luis T VISIT 5 INTERNAL MINUTES MED OFFICE 13195 [facility] PAULY OUTPATIEN 9 9 AILIN Luis T VISIT 5 INTERNAL MINUTES MED OFFICE 54592 [facility] LELAND OUTPATIEN 9 9 AILIN GILBERT, T VISIT 5 INTERNAL YOSSI F MINUTES MED OFFICE 97073 [facility] PA[facility]Y OUTPATIEN 9 9 AILIN Luis T VISIT INTERNAL 25 MED MINUTES [facility]ICE 22573 [facility] ADELINE Perry T VISIT PHYSICIAN 25 PSC MINUTES [facility] - 9 9 [facility] - 9 9 [facility] 69268 [facility] FAMILY ADELINE Perry T VISIT PHYSICIAN 25 PSC MINUTES [facility] 9 [facility] T OFFICE 28782 [facility] CONSULT 9 9 FAMILY ADELINE Perry ION PHYSICIAN NEW/ESTAB PSC PATIENT 60 MIN [facility] 9 9 [facility] T OFFICE 78953 [facility] CH[facility]IS OUTPATICONSTANTINE 9 9 AILIN ZAVALA T VISIT INTERNAL 15 MED MINUTES [facility] 8 [facility] T OFFICE 03900 [facility] OUTPATIEN 8 8 AILIN LUCAS T VISIT INTERNAL 15 MED MINUTES [facility] T OFFICE 29002 [facility] OUTPATIEN 8 8 AILIN LUCAS T VISIT INTERNAL 15 MED MINUTES OFFICE 77204 MAMTA FLOYD 8 8 EROS LUCAS T VISIT INTERNAL 15 MED MINUTES [facility] - 8 8 [facility] 60520 MAMTA FLOYD 8 8 EROS LUCAS T VISIT INTERNAL 15 MED MINUTES OFFICE 05007 MAMTA WAITE 8 8 EROS SADE Luis T VISIT INTERNAL 15 MED MINUTES OFFICE 30487 MAMTA BRANCH 8 8 [facility] T VISIT SERV N 15 FOUNDATIO MINUTES
--- OUTSIDE RECORDS SUMMARY | 2017-05-24 18:44 | External Medical Summary Rpt ---
Author Author , BARRY Flores BARRY Address Unknown Phone [email or web address] Care Team Providers Care Manager Of Warehouse Name Role Phone A Alexa SILVEIRA MD [...] LAB [facility] ANESTH OF Unavailable Unavailable [facility] [place]EST[facility] OF [facility] [place] TARUN III, SUZY L, Unavailable Unavailable TARUN III, SUZY L RIN MARGARITA, Unavailable Unavailable RIN MARGARITA RIN MARGARITA, Unavailable Unavailable RIN MARGARITA RIN, MATY, Unavailable Unavailable RIN, MATY FAJARDO HECTOR, FAJARDO HECTOR Unavailable Unavailable [facility] Unavailable Unavailable [facility] Unavailable Unavailable [facility], Unavailable Unavailable [facility] MICHAEL S, Unavailable Unavailable JESSICA YUAN NELSON, ELVI NELSON Unavailable Unavailable [facility] Unavailable Unavailable INC, [facility] Unavailable Unavailable HOSPITAL P, [facility] LUCAS PEREZ HARVEY, Unavailable Unavailable LUCAS [facility], Unavailable Unavailable [facility], [facility] Unavailable Unavailable [facility], [facility] KILPELA JEA, KILPELA Unavailable Unavailable [facility] Un[facility] Unavailable Unavailable [facility], [facility], Unavailable Unavailable [facility] LORENZANA EDS, LORENZANA Unavailable Unavailable DES LORENZANA DES, LOERNZANA Unavailable Unavailable DES NICHOLAS JR DWI, NICHOLAS Unavailable Unavailable JR DWI NICHOLAS, FRANCISCO E, Unavailable Unavailable NICHOLAS, FRANCISCO E M E D SUPPLIES, M E D Unavailable Unavailable SU[facility] Unavailable Unavailable SERVICES, [facility] YOSSI HA JR Unavailable Unavailable F, YOSSI HA JR, EMMETT P, Unavailable Unavailable JUMANA ANNE JOSE G, JOSE G Unavailable Unavailable JOSE G MICHELLE, JOSE G MICHELLE Unavailable Unavailable JOSE G MICHELLE, JOSE G MICHELLE Unavailable Unavailable [facility] Unavailable Unavailable [facility], [facility] NORELLE SANDRA, NORELLE Unavailable Unavailable SANDR[facility] NURSES [...] [facility]ACY [id number] # Unavailable Unavailable [id number], [facility] # [id number] Yossi Patel MD, Unavailable Unavailable Janelle Mcdermott MD, WRIGHT, Unavailable Unavailable A C Purpose Continuity of Care Document - 11-11-2007 through 2016 Problems Code Diagnosis DOS Provider Status E1140 TYPE 2 DM 03-16-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 SILVEIRA WITH [facility] DIABETIC NEUROPATHY UNSPECIFIED E782 MIXED 03-16-2017 A Alexa SILVEIRA HYPERLIPIDE [facility] TONIE G894 CHRONIC 03-16-2017 A Aelxa SILVEIRA PAIN PSC SYNDROME I10 ESSENTIAL 03-16-2017 [...] 11-18-2016 A Alexa SILVEIRA MD PSC UNSPECIFIED V90728 COMBINED 06-17-2016 [place] [facility] LEFT EYE K82121 COMBINED 05-20-2016 [facility] CAT[facility]ACT RIGHT EYE E119 TYPE 2 03-14-2016 [facility] P WITHOUT COMPLICATIO NS R079 CHEST PAIN 03-14-2016 [place] [facility] R42 DIZZINESS 03-14-2016 [place] [facility] 97425 DIAB W/O 08-07-2015 A Alexa SIERRA MD PSC COMP TYPE II/UNS TYPE UNCNTRL V0481 NEED 07-31-2015 A Alexa SILVEIRA PROPHYLACTI [facility] C VACCINATION &INOCULATIO N FLU 6825 CELLULITIS 06-19-2015 NURSES AND ABSCESS REGISTRY & OF [place] HOME HE 6850 PILONIDAL 06-19-2015 NURSES CYST WITH REGISTRY [place] 53054 DIAB 05-31-2015 A Alexa Zacarias/NEURO PSC MANIFESTS TYPE II/UNS TYPE UNCNTRL 96020 DIAB W/O 05-28-2015 [facility] COMP TYPE I [facility] [JUV] NOT INC STATED UNCNTRL 4019 UNSPECIFIED 05-28-2015 [facility] ESSENTIAL [facility] HYPERTENSIO INC N 66137 SQUAMOUS 05-07-2015 [facility] CARCINOMA SKIN TRUNK EXCPT SCROTUM 2382 NEOPLASM OF 05-07-2015 [facility] BEHAVIOR OF SKIN V8533 BODY MASS 05-07-2015 A Alexa MCKEON MD PSC 33.0-33.9 ADULT V8534 BODY MASS 02-20-2015 A Alexa MCKEON MD PSC 34.0-34.9 ADULT 7873 FLATULENCE 02-06-2015 [facility] PAIN 96087 ABDOMINAL 02-06-2015 [facility], MEDICAL UNSPECIFIED IMAGING ASS SITE 3384 CHRONIC 01-30-2015 A Alexa SILVEIRA PAIN PSC SYNDROME 4011 ESSENTIAL 01-30-2015 A Alexa SILVEIRA HYPERTENSIO PSC N, BENIGN 00761 ATHEROSLERO 01-30-2015 A Alexa ESPINOZA MD PSC EXTREM W/INTERMIT CLAUDICAT 2859 UNSPECIFIED 01-29-2015 [facility] ANEMIA SERV [facility] 39388 UNSPECIFIED 01-29-2015 [facility] MEDICAL SERV CONSTIPATIO FOUNDATION N 40971 OTHER 01-19-2015 [facility] DISORDERS INC OF INTESTINE 5758 OTHER 01-19-2015 [facility] SPECIFIED [facility]ICAL DISORDER OF IMAGING ASS GALLBLADDER 48984 ABDOMINAL 01-16-2015 [facility] GENERALIZED GROUP V1272 PERSONAL 01-16-2015 [facility] PH[facility]ICIANS COLONIC GROUP POLYPS 81465 UNSPECIFIED 12-28-2014 [facility]NT [facility] NEOPLASM INC SCALP & SKIN NECK 2150 OTH BOB 12-28-2014 [facility] DES NEOPLSM CNCTV&OTH SFT TISS HEAD FCE&NCK 36415 OTHER 12-28-2014 [facility] KERATOSIS 7099 UNSPECIFIED 12-28-2014 COMMUNITY DISORDER ANESTH OF OF THE BLUE SKIN&SUBCUT ANEOUS TISSUE V7284 UNSPECIFIED 12-27-2014 [facility] P VE EXAMINATION 2113 BENIGN 11-21-2014 [facility], NEOPLASM OF LLC COLON 36283 DIVERTICULO 11-21-2014 [facility] SIS OF PHYSICIANS COLON GROUP V6709 FOLLOW-UP 11-21-2014 COMMUNITY EXAMINATION ANESTH OF FOLLOWING THE BLUE OTHER SURGERY V7651 SPECIAL 11-21-2014 [facility] SCREENING PHYSICIANS FOR GROUP MALIGNANT NEOPLASMS COLON 6851 PILONIDAL 11-07-2014 [facility] CYST [facility]YS[facility]ANS WITHOUT GROUP MENTION OF ABSCESS 81666 DIAB 10-19-2014 A Alexa SILVEIRA W/RENAL PSC MANIFESTS TYPE II/UNS TYPE UNCNTRL 86438 CHEST PAIN 10-19-2014 A Alexa ROBERTSON MD PSC V0382 NEED PROPH 10-19-2014 A Alexa PEACOCK MD PSC AGAINST STREP PNEUMONE 4660 ACUTE 08-07-2014 [facility] PH[facility] 496 CHRONIC 08-07-2014 [facility] N EMERGENCY OBSTRUCTION PHYS NEC 99381 SHORTNESS 08-07-2014 [facility] OF [facility] 59809 WHEEZING 08-07-2014 [facility] N [facility]ERGENCY PHYS 7862 COUGH 08-07-2014 [facility] 2724 OTHER AND 07-31-2014 [facility] UNSPECIFIED [facility] INC HYPERLIPIDE TONIE 4280 CONGESTIVE 07-31-2014 [facility] FAILURE FOUND[facility] UNSPECIFIED 7910 PROTEINURIA 07-20-2014 Janelle SILVEIRA MD PSC 4293 CARDIOMEGAL 01-23-2014 RIN Y MARGARITA 486 PNEUMONIA, 01-23-2014 [facility] ORGANISM UNSPECIFIED 55944 PRECORDIAL 01-23-2014 [facility] PAIN 250.01 250.01 DIAB 06-05-2013 [facility], TYPE Hospital I [JUVENILE TYPE], NOT UNCNTRLD 305.1 305.1 06-05-2013 [facility] TOBACCO USE [facility] 401.9 401.9 06-05-2013 [facility] HYPERTENSIO [facility] 591 HYDRONEPHRO 06-05-2013 RIN SIS MARGARITA 592.0 592.0 06-05-2013 [facility] CALCULUS OF [facility] KIDNEY [facility] 5920 CALCULUS OF 06-05-2013 [facility] 5941 OTHER 06-05-2013 RIN CALCULUS IN MARGARITA BLADDER 99923 URINARY 06-05-2013 [facility] OBSTRUCTION MARGARITA UNSPECIFIED 74962 ABDOMINAL 06-05-2013 [facility], EMERGENCY EPIGASTRIC SERVICES 21009 ATHEROSCLER 05-01-2013 [facility] ART INC EXTREMITIES UNSPEC 61441 CORONARY 04-22-2013 [facility] ATHEROSCLER [facility] INC CORONARY ARTERY 1330 SCABIES 04-05-2013 Janelle SILVEIRA MD PSC 55621 EMBOLISM&TH 03-07-2013 [facility] ROMBOSIS [facility] ARTERIES INC LOWER EXTREMITY 4659 ACUTE URIS 01-20-2013 JOSE G MICHELLE OF UNSPECIFIED SITE 71930 ATHEROSLERO 12-24-2012 [facility] ART MARGARITA EXTREMITIES W/REST PAIN 7820 DISTURBANCE 12-24-2012 [facility] OF SKIN [facility] SENSATION INC V7644 SPECIAL 02-11-2012 SAMIRA ROSANNA SCREENING MALIGNANT NEOPLASM OF PROSTATE E9479 UNSPEC 11-10-2011 [facility] [place] [address] SPONDYLOSIS 08-07-2011 A Alexa SILVEIRA WITH [facility] MYELOPATHY LUMBAR REGION 7242 LUMBAGO 05-06-2011 A Alexa SILVEIRA MD [facility] 2809 UNSPECIFIED 02-10-2011 [facility] IRON SERV DEFICIENCY FOUNDATIO ANEMIA V7281 PRE-OPERATI 01-13-2011 [facility]YSICIANS CARDIOVASCU GROUP LAR EXAMINATION 62468 PAIN IN 12-17-2010 [facility]INT [facility] REGION AND THIGH 7213 LUMBOSACRAL 12-17-2010 [facility] SPONDYLOSIS [facility] WITHOUT MYELOPATHY 7295 PAIN IN 12-17-2010 [facility] SOFT [facility] [place] 09788 DISPLCMT 11-05-2010 [facility] LUMBAR MEDICAL INTERVERT IMAGING ASS DISC W/O MYELOPATHY 3569 UNSPEC 10-17-2010 A Alexa SILVEIRA HEREDIT&IDI [facility] OPATHIC PERIPHERAL NEUROPATHY 89030 SPINAL STEN 10-17-2010 A Alexa SILVEIRA LUMB REG [facility] W/O NEUROGENIC CLAUDICATIO N 5693 HEMORRHAGE 12-13-2009 [facility] G[facility], OF RECTUM SAMUEL F AND ANUS 92421 DIAB W/O 10-09-2009 [facility] COMP TYPE [facility] II/UNS NOT INC STATED UNCNTRL 7921 NONSPECIFIC 10-09-2009 [facility] ABNORMAL [facility] FINDING IN INC STOOL CONTENTS V5869 LONG-TERM 10-09-2009 [facility] (CURRENT) [facility] USE OF INC OTHER MEDICATIONS 2851 ACUTE 10-05-2009 [facility] GILBERT, POSTHEMORRH SAMUEL F AGIC ANEMIA 53851 COR 10-03-2009 [facility] ATHEROSLERO [facility] UNSPEC INC TYPE VESSEL [facility]/MALOU T 5789 UNSPECIFIED 10-03-2009 [facility] HEMORRHAGE [facility] GASTROINTES PROF SERV TINAL TRACT 09646 UNSPECIFIED 10-03-2009 [facility] PYELONEPHRI SERVICES TIS ASSOCIATES 5990 URINARY 10-03-2009 [facility] TRACT [facility] INFECTION HOSPITAL SITE NOT PROF SERV SPECIFIED 66457 OSTEOARTHRO 10-03-2009 [facility] S UNSPEC [facility] WHETHER INC GEN/LOC UNSPEC SITE 7880 RENAL COLIC 10-03-2009 [facility] 18637 ABDOMINAL 10-03-2009 [facility] PA[facility] OTHER EMERGENCY SPECIFIED SERVICES SITE ASSOCIATES 2662 OTHER 05-08-2009 [facility] DEFICIENCIE INTERNAL S MED 2810 PERNICIOUS 04-09-2009 [facility] ANEMIA [place] INTERNAL MED 3559 MONONEURITI 03-13-2009 [facility] S OF AMERIC UNSPECIFIED HOLDING SITE V4582 POSTSURG 01-17-2009 [facility] PERCUT FAMILY TRANSLUMINA PHYSICIAN Ariela STALLWORTH PSC ANGPLSTY STS 4111 INTERMEDIAT 01-03-2009 [facility] 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 PHYSICIAN PSC 4139 OTHER AND 01-03-2009 NEW UNSPECIFIED [facility] PSC PECTORIS V7283 OTHER 01-01-2009 [facility] SPECIFIED [facility] PRE-OPERATI INC VE EXAMINATION 4439 UNSPECIFIED 12-21-2008 [facility] PERIPHERAL [facility]ICAL VASCULAR IMAGING DISEASE ASSOCIATES 92757 OTHER 12-20-2008 [facility] MALAISE AND FAMILY FATIGUE PHYSICIAN PSC 7823 EDEMA 12-20-2008 [facility] PSC 25760 ORTHOPNEA 12-20-2008 [facility] PH[facility] PSC 39603 UNSPECIFIED 11-22-2008 [facility] [place] RESPIRATORY INTERNAL MED ABNORMALITY 3572 POLYNEUROPA 09-20-2008 [facility] THY IN [place] DIABETES INTERNAL MED 98088 SPINAL 03-13-2008 [facility] STENOSIS [place] OTHER INTERNAL REGION MED OTHER THAN CERVICAL 21696 DEGEN 11-11-2007 [facility] LUMBAR/LUMB SERV OSACRAL FOUNDATIO INTERVERTEB RAL [...] ti NO 23 SI [address] 76 20 20 DE IL 08 11 [...] OF ET CY NT HI AN A CT 37 06 09 2 30 30 EA [...] 8- 9- 00 SI [address] 76 20 20 DE IL 08 11 [...] ET OF CY NT HI AN A CT 37 06 08 2 30 30 EA [...] ET OF CY NT HI AN A CT 37 06 06 2 30 30 EA [...] CY BL # ET [address] 37 06 06 0 30 30 WA [...] 2- 2- 00 MA [address] 51 20 20 RT 7 IL 50 [...] CY BL # ET [address] 37 03 05 2 30 30 WA [...] 3- 2- 00 MA [address] 51 20 20 RT 2 IL 50 [...] TA # BL ET [address] 37 03 03 2 30 30 WA [...] 3- 0- 00 MA [address] 51 20 20 RT 2 IL 50 [...] M CY TA # BL ET 10 CT 37 03 03 2 30 30 WA [...] 3- 3- 00 MA 31 ER ve OH 62 20 20 RT 4 DE 41 [...] 3- 3- 00 MA [address] 99 20 20 RT 2 IL 61 [...] 7- 5- 00 MA [address] 99 20 20 RT 3 IL 61 10 11 RI 0 PH CH 20 AR AR MA D MG CY # TA BL 10 ET 05 91 ME 53 12 01 1 12 30 WA 70 RI Ac TF 74 -2 -2 0. L- 99 SH ti OR 60 7- 5- 00 MA 82 ER ve OH 17 20 20 0 RT 4 N [...] 7- 5- 00 MA 82 ER ve OH 62 20 20 RT 9 DE 41 [...] # TA BL [address] 37 12 01 1 30 30 WA [...] 7- 7- 00 MA [address] 99 20 20 RT 3 IL 61 10 10 RI 0 PH CH 20 AR AR MA D MG CY # TA BL 10 ET 05 91 ME 53 12 12 1 12 30 WA 70 RI Ac TF 74 -2 -2 0. L- 99 SH ti OR 60 7- 7- 00 MA 82 ER ve OH 17 20 20 0 RT 4 N [...] 7- 7- 00 MA 82 ER ve OH 62 20 20 RT 9 DE 41 [...] # TA BL [address] 37 12 12 1 30 30 WA [...] CY BL # ET [address] 37 11 11 0 30 30 WA [...] 9- 9- 00 MA 24 ER ve OH 62 20 20 RT 7 DE 41 [...] 9- 9- 00 MA 24 ER ve OH 17 20 20 0 RT 4 N [...] 2- 8- 00 MA [address] 99 20 20 RT 8 IL 61 [...] CY BL # ET [address] 37 10 10 0 30 30 WA [...] 6- 6- 00 MA 46 ER ve OH 17 20 20 0 RT 9 N [...] 6- 6- 00 MA 46 ER ve OH 62 20 20 RT 7 DE 41 [...] 2- 6- 00 MA [address] 99 20 20 RT 8 IL 61 [...] CA PS 10 UL [address] 37 09 09 0 30 30 WA [...] 6- 6- 00 MA 56 ER ve OH 17 20 20 0 RT 8 N 80 10 10 RI HC 1 PH CH L AR AR ER MA D CY 50 # 0 MG 10 05 TA 91 BL ET LI 54 07 09 2 30 30 WA 70 RI Ac SI 45 -2 -1 .0 L- 79 SH ti NO 80 0- 6- 00 MA [address] 99 20 20 RT 5 IL 61 [...] CY BL # ET [address] 37 06 08 2 30 30 WA [...] 0- 0- 00 MA [address] 99 20 20 RT 5 IL 61 10 10 RI 0 PH CH 20 AR AR MA D MG CY # TA BL 10 ET 05 91 ME 53 06 08 2 12 30 WA 70 RI Ac TF 74 -2 -2 0. L- 75 SH ti OR 60 2- 0- 00 MA 64 ER ve OH 17 20 20 0 RT 4 N [...] 0- 3- 00 MA [address] 99 20 20 RT 5 IL 61 10 10 RI 0 PH CH 20 AR AR MA D MG CY # TA BL 10 ET 05 91 LI 68 07 07 2 60 30 WA 70 RI Ac SI 18 -2 -2 .0 L- 79 SH ti NO 00 1- 1- 00 MA [address] 51 20 20 RT 5 IL 40 10 10 RI 1 PH CH 10 AR AR MA D MG CY # TA BL [address] 37 06 07 2 30 30 WA [...] 2- 0- 00 MA 64 ER ve OH 17 20 20 0 RT 4 N [...] CY BL # ET [address] 37 06 06 2 30 30 WA [...] 2- 2- 00 MA 64 ER ve OH 17 20 20 0 RT 4 N [...] 2- 2- 00 MA [address] 99 20 20 RT 8 IL 61 [...] 8- 8- 00 MA 18 ER ve OH 17 20 20 0 RT 8 N [...] 8- 8- 00 MA [address] 99 20 20 RT 9 IL 71 [...] CY BL # ET [address] 37 02 05 1 30 30 WA [...] MA D CY # [address] 37 02 04 1 30 30 WA [...] 9- 0- 00 MA 11 ER ve OH 17 20 20 0 RT 0 N [...] 8- 0- 00 MA [address] 51 20 20 RT 4 IL 40 10 10 RI 1 PH CH 10 AR AR MA D MG CY # TA BL 10 ET 05 91 ME 53 02 03 1 12 30 WA 70 RI Ac TF 74 -1 -1 0. L- 59 SH ti OR 60 9- 9- 00 MA 11 ER ve OH 17 20 20 0 RT 0 N [...] 8- 9- 00 MA [address] 99 20 20 RT 4 IL 71 10 10 RI 0 PH CH 10 AR AR MA D MG CY # TA BL [address] 37 12 03 3 30 30 WA [...] UR 38 6- 9- 00 MA 91 OH ve ID 34 20 20 0 RT 1 E E 40 09 10 JR 5 1 PH MG AR WI MA LL TA CY IA BL # M ET F [address] 37 12 02 02 30 30 WA [...] 8- 6- 00 MA [address] 99 20 20 RT 4 IL 71 10 10 RI 0 PH CH 10 AR AR MA D MG CY TA #5 BL 91 ET ME 53 08 02 03 12 30 WA 70 BE Ac TF 74 -2 -2 0. L- 33 SS ti OR 60 1- 6- 00 MA 34 ON ve OH 17 20 20 0 RT 3 N [address] HC 1 PH EP L AR HE ER MA N CY A 50 0 #5 MG 91 TA BL ET GL 00 05 02 02 12 30 WA 70 MC Ac YB 09 -2 -2 0. L- 21 KE ti UR 38 6- 6- 00 MA 91 OH ve ID 34 20 20 0 RT 1 E E 40 09 10 JR 5 1 PH MG AR WI MA LL TA CY IA BL M ET #5 F 91 ME 53 08 01 02 12 30 WA 70 BE Ac TF 74 -2 -2 0. L- 33 SS ti OR 60 1- 8- 00 MA 34 ON ve OH 17 20 20 0 RT 3 N [address] HC 1 PH EP L AR HE ER MA N CY A 50 0 #5 MG 91 TA BL ET LI 54 06 01 03 60 30 WA 70 BE Ac SI 45 -1 -1 .0 L- 24 SS ti NO 80 6- 4- 00 MA [address] 99 20 20 RT 0 [place] [address] 0 PH EP 10 AR HE MA N MG CY A TA #[address] 37 12 01 01 30 30 WA 88 AL Ac IL 00 -0 -1 .0 L- 15 LR ti OS 00 1- 4- 00 MA 11 AN ve EC 45 20 20 RT 2 50 09 10 JR OT 4 PH C AR CH 20 MA AR .6 CY LE S MG #5 F [address] 37 12 12 00 30 30 WA [...] 00 20 10 WA [address] 11 -2 -0 .0 L- 47 KE ti OF 10 7- 3- 00 MA 59 OH ve LO 12 20 20 RT 2 [...] 6- 3- 00 MA [address] 99 20 20 RT 0 IL 71 [...] UR 38 6- 4- 00 MA 91 OH ve ID 34 20 20 0 RT [...] 6- 3- 00 MA [address] 99 20 20 RT 0 IL 71 [...] 6- 2- 00 MA [address] 99 20 20 RT 0 IL 71 [...] UR 38 6- 4- 00 MA 91 OH ve ID 34 20 20 0 RT [...] 6- 1- 00 MA [address] 51 20 20 RT 2 IL 40 [...] ti 50 0- 9- 00 MA 32 OH ve 12 20 20 RT 7 E [...] 6- 6- 00 MA [address] 99 20 20 RT 2 IL 71 [...] 1- 6- 00 MA 67 UJ ve OH 20 20 20 RT 9 I DE [...] 6- 6- 00 MA [address] 99 20 20 RT 2 IL 71 [...] 6- 0- 00 MA [address] 99 20 20 RT 2 IL 71 [...] 2- 0- 00 MA 17 EY ve OH 26 20 20 RT 9 N 00 [...] 2- 1- 00 MA 17 EY ve OH 26 20 20 RT 9 N 00 [...] 2- 0- 00 MA [address] 51 20 20 RT 4 IL 40 [...] 2- 0- 00 MA 17 EY ve OH 26 20 20 RT 9 N 00 [...] 1- 3- 00 MA 97 EY ve OH 26 20 20 RT 6 N 00 [...] 1- 6- 00 MA 97 EY ve OH 26 20 20 RT 6 N 00 [...] 1- 4- 00 MA 97 EY ve OH 26 20 20 RT 6 N 00 [...] 1- 7- 00 MA 97 EY ve OH 26 20 20 RT 6 N 00 08 08 SIMIN HC 2 PH DI L AR ER MA CY 50 0 #5 MG 91 TA BL ET LI 54 05 07 02 30 30 WA 69 STONER Ac SI 45 -0 -1 .0 L- 70 RV ti NO 80 5- 7- 00 MA [address] 99 20 20 RT 6 IL 71 [...] 7- 2- 00 MA 30 EY ve OH 26 20 20 RT 0 N 00 [...] 5- 2- 00 MA [address] 51 20 20 RT 6 IL 40 [...] 5- 2- 00 MA [address] 51 20 20 RT 6 ai IL [...] #591 #591 HOME BLD GLU MON-50 CATARACT 86515 [facility] REMOVAL 6 [facility] [place] CATARACT 31529 [facility] REMOVAL 6 [facility] [place] BLD GLU A4253 [facility] TEST/REAG 6 PHARMACY PHARMACY T STRIPS #591 #591 [place] MON-50 [place] [address] [facility] INFUSION 6 [facility] THERAPY/P INC INC ROPHYLAXI S /DX 1ST TO 1 HR THERAPEUT 14504 [facility] IC 6 [facility] INJECTION INC INC IV PUSH EACH NEW DRUG RADIOLOGI 68568 [facility] C EXAM [address] [facility] CHEST 2 INC INC VIEWS FRONTAL&L ATERAL ECG 95007 [facility] JR ROUTINE 6 [facility] W/LEAST P 12 LDS I&R ONLY CREATINE 44674 [facility] KINASE 6 [facility] TOTAL INC INC ECG 50571 [facility] ROUTINE 6 [facility] ECG INC INC W/LEAST 12 LDS TRCG ONLY W/O I&[place] [address] LEIGHA LIMA ALL HEAD/BRAI 6 MEDICAL N W/O IMAGING CONTRAST ASS MATERIAL FINAL G9638 [facility] ALL REPORTS 6 MEDICAL W/O DOC IMAGING 1/MORE ASS DOSE REDUCTION TECH COMPREHEN 00936 [facility] SIVE 6 [facility] METABOLIC INC INC PANEL CREATINE 48836 [facility] KINASE MB 6 [facility] [place] [address] [facility] LACTATE 6 [facility] INC INC COLLECTIO 83343 [facility] N VENOUS [address] [facility] [place] [address] [facility] TROPONIN [address] [facility] HOSP QUANTITAT INC INC LYNN BLOOD 52405 [facility] COUNT 6 [facility] COMPLETE INC INC AUTO&AUTO DIFRNTL WBC LIPID 61089 A Alexa MARTINEZ PANEL 6 JORDANA PORTILLO PSC HEMOGLOBI 24092 A Alexa MARTINEZ N 6 JORDANA PORTILLO GLYCOSYLA PSC BRAN A1C IIV4 VACC 15192 A Alexa MARTINEZ PRESRV 5 JORDANA PORTILLO FREE 0.5 PSC ML FOR IM USE IM ADM 96707 A Alexa MARTINEZ PRQ ID 5 JORDANA [...] HE 16 SQ/< W/O ADHES BORDR GLUCOSE 21167 A Alexa MARTINEZ QUANTITAT 5 JORDANA PORTILLO LYNN BLOOD PSC XCPT REAGENT STRIP INCISION 35820 ISRAEL MCKEE & 5 PHYSICIAN U [facility] PILONIDAL CYST SIMPLE EXC B9 86172 A Alexa MARTINEZ LESION 5 JORDANA PORTILLO MRGN XCP PSC SK TG T/A/L 0.6-1[place] [address] [facility] SURG 5 DIAGNOSTI DIAGNOSTI PATHOLOGY [facility] ROSCOPIC EXAM HEMOGLOBI 29151 A Alexa MARTINEZ N 5 JORDANA PORTILLO GLYCOSYLA PSC BRAN A1C GLUCOSE 59841 A Alexa MARTINEZ QUANTITAT 5 JORDANA PORTILLO LYNN BLOOD PSC XCPT REAGENT STRIP GASTRIC 46790 [facility] EMPTYING 5 [facility] IMAGING INC INC STUDY TECHNETIU A9541 [facility] M TC-99M 5 [facility] SULFUR INC INC COLLOID DX UP TO 20 MCI HEMOGLOBI 21494 A Alexa ARAIZA MICHELLE N 5 JORDANA PORTILLO GLYCOSYLA PSC BRAN A1C IRON 62576 [facility] BINDING 5 [facility] [place] [address] [facility] GAMMAGLOB 5 [facility] ULIN IGA INC INC IGD IGG IGM EACH COLLECTIO 52560 [facility] N VENOUS 5 [facility] [place] [address] [facility] IRON 5 [facility] INC INC COMPREHEN 23986 [facility] SIVE 5 [facility] [place] [address] [facility] FERRITIN 5 [facility] INC INC BLOOD 77562 [facility] COUNT 5 [facility] COMPLETE INC INC AUTO&AUTO DIFRNTL WBC FLUORESCE 69314 [facility] NT 5 [facility] NONNFCT INC [place] [address] [facility] ABDOMINAL 5 [facility] REAL INC INC TIME W/IMAGE LIMITED ADJT TIS 67843 [facility] TRNS/REAR 5 [facility] GMT INC INC F/C/C/M/N /A/G/H/F 10SQCM/< GLUC BLD 14151 [facility] GLUC MNTR 5 [facility] DEV INC INC CLEARED FDA SPEC HOME USE ANES 32886 [facility] FAJARDO HECTOR INTEG 5 ANESTH MUSC & OF THE NRV HEAD BLUE NECK&[place] [address] [facility], PICKLESIM SURG 5 [facility] ER [facility] PATHOLOGY GROSS&NELSON ROSCOPIC EXAM BLOOD 65814 PRESTON RAMOSON COUNT 5 [facility] COMPLETE INC INC AUTO&AUTO DIFRNTL WBC ECG 89911 [facility]STONBAILEE [facility] ROUTINE 5 [facility] ECG INC INC W/LEAST 12 LDS TRCG ONLY W/O I&R ECG 83183 PRESTON PETERSON JR ROUTINE 5 [facility] W/LEAST P 12 LDS I&R ONLY COLLECTIO 41562 [facility] N VENOUS 5 [facility] [place] [address] [facility] ABDOMEN & 5 MEDICAL MARGARITA PELVIS IMAGING W/O ASS CONTRAST MATERIAL CREATININ 33350 [facility] E BLOOD 5 [facility] [place] [address] PRESTON RAMOSON UREA 5 [facility] NITROGEN INC INC QUANTITAT LYNN COLLECTIO 92678 [facility] N VENOUS 5 [facility] BLOOD INC INC VENIPUNCT URE GLUC BLD 73513 [facility] GLUC MNTR 5 [facility] DEV INC INC CLEARED FDA SPEC HOME USE ANES 81749 [facility] LOWER 5 ANESTH SHE INTESTINE OF THE [place] [address] [facility], ELVI NELSON SURG 5 [facility] PATHOLOGY GROSS&NELSON ROSCOPIC EXAM COLSC FLX 78717 PREST[facility] W/RMVL 5 [facility] OF TUMOR INC INC POLYP LESION SNARE TQ PCV13 98995 A Alexa ARAIZA MICHELLE VACCINE 4 JORDANA PORTILLO FOR PSC INTRAMUSC ULAR USE IIV3 17709 A Alexa ARAIZA MICHELLE VACCINE 4 JORDANA PORTILLO SPLIT PSC VIRUS 0.5 ML DOSAGE IM USE HEMOGLOBI 38810 A Alexa ARAIZA MICHELLE N 4 JORDANA PORTILLO GLYCOSYLA PSC BRAN A1C GLUCOSE 11277 A Alexa ARAIZA MICHELLE QUANTITAT 4 JORDANA PORTILLO LYNN BLOOD PSC XCPT REAGENT STRIP RADIOLOGI 84321 IDAHO RIN C EXAM 4 MEDICAL MARGARITA CHEST 2 IMAGING VIEWS ASS FRONTAL&L ATERAL ECHO 03438 MITESH RUVALCABA MARCOS TTHRC R-T 4 MEDICAL 2D SERV W/WOM-MOD FOUNDATIO E COMPL SPEC&COLR D LIPID 59499 A Alexa ARAIZA MICHELLE PANEL 4 JORDANA PORTILLO PSC HEMOGLOBI 22864 A Alexa ARAIZA MICHELLE N 4 JORDANA PORTILLO GLYCOSYLA PSC BRAN A1C ALBUMIN 02732 A Alexa MARTINEZ URINE 4 JORDANA PORTILLO MICROALBU PSC MIN SEMIQUANT ITATIVE COMPREHEN 95358 QUEST QUEST SIVE 4 DIAGNOSTI DIAGNOSTI METABOLIC CS CS PANEL HEMOGLOBI 15324 JOSE G JOHNSTONES MICHELLE N 4 GLYCOSYLA BRAN A1C RADIOLOGI 46088 RIN RIN C 4 MARGARITA MARGARITA EXAMINATI ON CHEST SINGLE VIEW FRONTAL HEMOGLOBI 63729 JOSE G JOHNSTONES MICHELLE N 4 GLYCOSYLA BRAN A1C IIV3 53261 JOSE G ARCHULETA MICHELLE VACCINE 3 SPLIT VIRUS 0.5 ML DOSAGE IM USE IM ADM 18132 JOSE G ARCHULETA MICHELLE PRQ ID 3 SUBQ/IM NJXS 1 VACCINE GLUCOSE 66584 A Alexa ARAIZA MICHELLE QUANTITAT 3 JORDANA PORTILLO LYNN BLOOD PSC XCPT REAGENT STRIP HEMOGLOBI 91939 A Alexa ARAIZA MICHELLE N 3 JORDANA PORTILLO GLYCOSYLA PSC BRAN A1C ALBUMIN 35921 A Alexa ARAIZA MICHELLE URINE 3 JORDANA PORTILLO MICROALBU PSC MIN SEMIQUANT ITATIVE LIPID 57868 A Alexa ARAIZA MICHELLE PANEL 3 JORDANA PORTILLO PSC COLLECTIO 25752 A Alexa ARAIZA MICHELLE N VENOUS 3 JORDANA [place] [address] RIN RIN ABDOMEN & 3 MARGARITA MARGARITA PELVIS W/O CONTRAST MATERIAL BASIC 25072 [facility] METABOLIC 3 [facility] PANEL INC INC CALCIUM TOTAL BASIC 94791 [facility] METABOLIC 3 [facility] PANEL INC INC CALCIUM TOTAL REVSC 97684 [facility] OPN/PRQ [address] [facility] FEM/POP INC INC W/ATHRC/A NGIOP SM VSL LOCM Q9966 [facility] 200-299 3 [facility] MG/ML INC INC IODINE CONCENTRA TION PER ML GUIDE C1769 [facility] WIRE [address] [facility] INC INC CATHETER C1725 [facility] TRANSLUMI 3 [facility] NAL INC INC ANGIOPLAS TY NON-LASER CLOSURE C1760 [facility] DEVICE [address] [facility] VASCULAR INC INC ECG 81523 NICHOLAS JR NICHOLAS JR ROUTINE 3 DWI DWI ECG W/LEAST 12 LDS I&R ONLY CATHETER C1887 [facility] GUIDING [address] [facility] INC INC INTRDUCR/ C1894 [facility] SHEATH [address] [facility] NOT GUID INC INC INTRACARD EP NON-LASR CATHETER C1724 [facility] TRANSLUMI 3 [facility] NAL INC INC ATHERECTO MY ROTATIONA L REVASCULA 49880 [facility] RIZATION [address] [facility] ILIAC INC INC ARTERY ANGIOP 1ST VSL COAGULATI 60532 [facility] ON TIME [address] [facility] ACTIVATED INC INC INTRDUCR/ C1766 [facility] SHEATH 3 [facility] GUID INC INC INTRACARD EP NOT PEEL-AWAY INJECTION J1644 [facility] HEPARIN [address] [facility] SODIUM INC INC PER 1000 UNITS PROTHROMB 40399 [facility] IN TIME 3 [facility] INC INC BLOOD 46295 [facility] COUNT 3 [facility] COMPLETE INC INC AUTO&AUTO DIFRNTL WBC THROMBOPL 69115 [facility] ASTIN 3 [facility] TIME INC INC PARTIAL PLASMA/WH OLE BLOOD COMPREHEN 01550 [facility] SIVE 3 [facility] METABOLIC INC INC PANEL COLLECTIO 14699 A Alexa ARAIZA MICHELLE N VENOUS 3 JORDANA PORTILLO BLOOD PSC VENIPUNCT URE HEMOGLOBI 40717 A Alexa ARAIZA MICHELLE N 3 JORDANA PORTILLO GLYCOSYLA PSC BRAN A1C LIPID 54107 A Alexa ARAIZA MICHELLE PANEL 3 JORDANA PORTILLO PSC BASIC 20473 [facility] METABOLIC 3 [facility] PANEL INC INC CALCIUM TOTAL REVSC 76529 [facility] OPN/PRQ [address] [facility] FEM/POP INC INC W/STNT/AT HRC/ANGIO P SM VSL GLUC BLD 02190 [facility] GLUC MNTR 3 [facility] DEV INC INC CLEARED FDA SPEC HOME USE LOCM Q9966 [facility] 200-299 [address] [facility] MG/ML INC INC IODINE CONCENTRA TION PER ML COAGULATI 69572 [facility] ON TIME [address] [facility] ACTIVATED INC INC INTRDUCR/ C1894 [facility] SHEATH [address] [facility] NOT GUID INC INC INTRACARD EP NON-LASR INTRDUCR/ C1766 [facility] SHEATH 3 [facility] GUID INC INC INTRACARD EP NOT PEEL-AWAY STENT C1876 [facility] NON-COATE [address] [facility] D/NON-COV INC INC ERED W/DELIVER Y SYSTEM INJECTION J1644 [facility] HEPARIN 3 [facility] SODIUM INC INC PER 1000 UNITS ECG 30994 PAULY COATS ROUTINE 3 MICHELLE MICHELLE ECG W/LEAST 12 LDS I&R ONLY CATHETER C1887 [facility] GUIDING 3 [facility] INC INC CLOSURE C1760 [facility] DEVICE 3 [facility] VASCULAR INC INC CATHETER C1725 [facility] TRANSLUMI 3 [facility] NAL INC INC ANGIOPLAS TY NON-LASER GUIDE C1769 [facility] WIRE 3 [facility] INC INC PROTHROMB 74767 [facility] IN TIME 3 [facility] INC INC BLOOD 49405 [facility] COUNT 3 [facility] COMPLETE INC INC AUTO&AUTO DIFRNTL WBC COMPREHEN 66361 [facility] SIVE 3 [facility] METABOLIC INC INC PANEL NON-INVAS 22065 RIN RIN LYNN 3 MARGARITA MARGARITA PHYSIOLOG IC STUDY EXTREMITY 3 LEVLS LIPID 40754 JOSE G ARCHULETA MICHELLE PANEL 3 HEMOGLOBI 66775 JOSE G ARCHULETA MICHELLE N 3 GLYCOSYLA BRAN A1C BASIC 15632 [facility]ST QUEST METABOLIC 2 DIAGNOSTI DIAGNOSTI PANEL CS CS CALCIUM TOTAL IM ADM 43114 JOSE G MARTINEZ PRQ ID 2 SUBQ/IM NJXS 1 VACCINE TRANSFERA 59610 JOSE G MARTINEZ SE 2 ASPARTATE AMINO AST SGOT ALBUMIN 26508 JOSE G MARTINEZ URINE 2 MICROALBU MIN QUANTIATI VE TRANSFERA 48573 JOSE G MARTINEZ SE 2 ALANINE AMINO ALT SGPT BASIC 65186 QUE[facility] QUEST METABOLIC 2 DIAGNOSTI DIAGNOSTI PANEL CS CS CALCIUM TOTAL LIPID 57401 JOSE G ARCHULETA MICHELLE PANEL 2 HEMOGLOBI 80240 JOSE G ARCHULETA MICHELLE N 2 GLYCOSYLA BRAN A1C GLUCOSE 68151 SAMIRA SAMIRA QUANTITAT 2 ROSANNA ROSANNA LYNN BLOOD XCPT REAGENT STRIP HEMOGLOBI 75728 SAMIRA SAMIRA N 2 ROSANNA ROSANNA GLYCOSYLA BRAN A1C BASIC 79107 QUEST QUEST METABOLIC 2 DIAGNOSTI DIAGNOSTI PANEL CS CS CALCIUM TOTAL LIPID 63510 SAMIRA SAMIRA PANEL 2 [place] [address] QUEST QUEST PROSTATE 2 DIAGNOSTI DIAGNOSTI SPECIFIC CS CS ANTIGEN TOTAL TRANSFERA 54483 SAMIRA SAMIRA SE 2 ROSANNA ROSANNA ASPARTATE AMINO AST SGOT TRANSFERA 51281 QUEST QUEST SE 2 DIAGNOSTI DIAGNOSTI ASPARTATE CS CS AMINO AST SGOT BASIC 76582 QUEST QUEST METABOLIC 2 DIAGNOSTI DIAGNOSTI PANEL CS CS CALCIUM TOTAL LIPID 54826 QUEST QUEST PANEL 2 DIAGNOSTI DIAGNOSTI CS CS HEMOGLOBI 03554 QUEST QUEST N 2 DIAGNOSTI DIAGNOSTI GLYCOSYLA CS CS BRAN A1C COLLECTIO 98212 SAMIRA SAMIRA N VENOUS 2 ROSANNA ROSANNA BLOOD VENIPUNCT URE HEMOGLOBI 05662 A C A C N 1 JORDANA SILVEIRA MD GLYCOSYLA PSC PSC BRAN A1C LIPID 58060 QUEST QUEST PANEL 1 DIAGNOSTI DIAGNOSTI CS CS BASIC 65580 QUEST QUEST METABOLIC 1 DIAGNOSTI DIAGNOSTI PANEL CS CS CALCIUM TOTAL TRANSFERA 94026 QUEST QUEST SE 1 DIAGNOSTI DIAGNOSTI ASPARTATE CS CS AMINO AST SGOT TRANSFERA 18050 QUEST QUEST SE 1 DIAGNOSTI DIAGNOSTI ASPARTATE CS CS AMINO AST SGOT BASIC 64872 QUEST QUEST METABOLIC 1 DIAGNOSTI DIAGNOSTI PANEL CS CS CALCIUM TOTAL LIPID 54359 QUEST QUEST PANEL 1 DIAGNOSTI DIAGNOSTI CS CS HEMOGLOBI 08701 A C SAMIRA N 1 JORDANA PORTILLO [facility] GLYCOSYLA PSC BRAN A1C 3D 07022 IDAHO RIN RENDERING 1 MEDICAL MARGARITA IMAGING W/INTERP& [place] [address] [facility] ABDOMEN & 1 MEDICAL MARGARITA PELVIS IMAGING W/CONTRAS ASS T MATERIAL COMPREHEN 37334 [facility] SIVE 1 [facility] [place] [address] [facility] AMYLASE 1 [facility] [place] [address] [facility] FOLIC 1 [facility] [place] [address] [facility] IRON 1 [facility] INC INC IRON 48786 [facility] BINDING 1 [facility] CAPACITY INC INC BLOOD 07945 [facility] COUNT 1 [facility] COMPLETE INC INC AUTO&AUTO DIFRNTL WBC FLUORESCE 78638 [facility] NT 1 [facility] NONNFCT INC INC AGT ANTB TITER EA ANTIBODY CYANOCOBA 35832 [facility] LUBNA 1 [facility] VITAMIN INC INC B-12 [place] [address] [facility] FERRITIN 1 [facility] [place] [address] [facility] LIPASE 1 [facility] INC INC CV STRS 90312 [facility] 1 PHYSICIAN JULEITH XERS&/OR S GROUP RX CONT ECG W/O I&R CV STRS 48654 [facility] TST 1 [facility] XERS&/OR INC INC RX CONT ECG TRCG ONLY MYOCARDIA 08669 [facility] SPECT 1 PHYSICIAN JULIETH MULTIPLE S GROUP STUDIES HEMOGLOBI 42547 A C SAMIRA N 1 JORDANA MARTE GLYCOSYLA PSC BRAN A1C LIPID 43295 [facility] PANEL 1 [facility] ALBUMIN 41246 A Alexa HOGAN URINE 1 JORDANA MARTE MICROALBU PSC MIN SEMIQUANT ITATIVE BASIC 40621 [facility] METABOLIC 1 [facility] [place] [address] [facility] PROSTATE 1 [facility] SPECIFIC ANTIGEN TOTAL TRANSFERA 45222 [facility] SE 1 [facility] ASPARTATE AMINO AST SGOT RADEX 80334 [place] SPINE 1 [facility] LUMBOSACR CLINIC AL 2/3 PSC VIEWS RADEX 36282 [facility] SPINE 1 [facility] LUMBOSACR INC INC AL 2/3 VIEWS MRI 05032 [facility] SPINAL 0 [facility] CANAL INC INC LUMBAR W/O CONTRAST MATERIAL TRANSFERA 29605 [facility] SE 0 [facility] ASPARTATE AMINO AST SGOT BASIC 56511 [facility] METABOLIC 0 [facility] PANEL CALCIUM TOTAL LIPID 86342 [facility] PANEL 0 [facility] HEMOGLOBI 49857 [facility] N 0 [facility] GLYCOSYLA BRAN A1C LANCETS A4259 M [...] BOX 0 SUPPLIES SUPPLIES OF 100 HEMOGLOBI 97308 Janelle HOGAN, N 0 JORDANA MALONE GLYCOSYLA PSC BRAN A1C LIPID 67247 [facility] PANEL 0 [facility] BASIC 82063 [facility] METABOLIC 0 [facility] PANEL CALCIUM TOTAL TRANSFERA 74179 [facility] SE 0 [facility] ASPARTATE AMINO AST SGOT BLOOD 30149 [facility] COUNT 0 [facility] COMPLETE AUTO&AUTO DIFRNTL WBC LANCETS A4259 [...] T STRIPS HOME BLD GLU MON-50 BASIC 67875 LAB DEXTER LAB DEXTER METABOLIC 0 [facility] [employer] PANEL HOLDING HOLDING CALCIUM TOTAL LIPID 64283 LAB D[facility] LAB DEXTER PANEL 0 [facility] [employer] [employer] HOLDING HEMOGLOBI 64104 LAB DEXTER LAB DEXTER N 0 AMERIC AMERIC GLYCOSYLA [place] A1[place] [address] LAB D[facility] LAB DEXTER PROSTATE 0 [facility] SPECIFIC HOLDING HOLDING ANTIGEN TOTAL TRANSFERA 88496 LAB DEXTER LAB DEXTER SE 0 [employer] ASPARTATE HOLDING HOLDING AMINO AST SGOT COLSC FLX 62511 ALLRAN ALLRAN W/RMVL 9 JR VLADIMIR, OF TUMOR SAMUEL Ol[place] [address] PATHOLOGY PATHOLOGY SURG 9 & & PATHOLOGY CYTOLOGY CYTOLOGY LAB LAB GROSS&NELSON ROSCOPIC EXAM OTHER 4513 [facility] ENDOSCOPY 9 [facility] OF SMALL INC INC INTESTINE ENDOSCOPI 4542 [facility] C 9 [facility] POLYPECTO INC INC MY OF LARGE INTESTINE GLUC BLD 64141 [facility] GLUC MNTR 9 [facility] DEV INC [place] [address] [facility] INFUSION 9 [facility] THERAPY/P INC INC ROPHYLAXI S /DX 1ST TO 1 HR EGD 79434 ALLRAN ALLRAN TRANSORAL 9 JR VLADIMIR, BIOPSY SAMUEL Oliva SINGLE/MU LTIPLE ESOPHAGOG 19769 [facility] ASTRODUOD 9 [facility] ENOSCOPY INC INC TRANSORAL DIAGNOSTI C INITIAL 26567 ALLRAN ALLRAN INPATIENT 9 JR VLADIMIR, CONSULT SAMUEL BAKER Pj NEW/ESTAB [place] [address] [place] [address] [place] RIN, ABDOMEN 9 MEDICAL MATY W/O IMAGING CONTRAST ASSOCIATE MATERIAL S 3D 48810 I[place] RIN, RENDERING 9 MEDICAL MATY IMAGING W/INTERP& ASSOCIATE POSTPROC S DIFF WORK STATION TRANSFUSI 9904 [facility] ON OF 9 [facility] PACKED INC INC CELLS CT PELVIS 01561 IDAHO RIN, W/O 9 MEDICAL MATY CONTRAST IMAGING MATERIAL ASSOCIATE S RADIOLOGI 29132 IDAHO Alexa ANNE EXAM 9 MEDICAL JUMANA P CHEST 2 IMAGING VIEWS ASSOCIATE FRONTAL&L S ATERAL ECG 53680 [facility] PETERSON, ROUTINE 9 [facility] W/LEAST PROF SERV 12 LDS I&R ONLY THERAPEUT 44133 [facility] PAULY, IC 9 [facility] PROPHYLAC INTERNAL TIC/DX MED INJECTION SUBQ/IM THERAPEUT 07012 [facility] PAULY, IC 9 [facility] PROPHYLAC INTERNAL TIC/DX MED INJECTION SUBQ/IM THERAPEUT 73741 JEFERSON LELAND IC 9 VAL[facility] JR, PROPHYLAC INTERNAL YOSSI F TIC/DX MED INJECTION SUBQ/IM THERAPEUT 12087 [facility] PAULY, IC 9 [facility] PROPHYLAC INTERNAL TIC/DX MED INJECTION SUBQ/[place] [address] COMBINED COMBINED THYROID 9 PHYSICIAN PHYSICIAN STIMULATI S LAB S LAB NG HORMONE TSH CYANOCOBA 01791 LAB DEXTER LAB DEXTER LUBNA 9 AMERIC AMERIC VITAMIN HOLDING HOLDING B-12 [place]IL[place] 12852 LAB DEXTER LAB DEXTER TEST 9 AMERIC AMERIC QUANTITAT HOLDING HOLDING LYNN COMPREHEN 13892 COMBINED COMBINED SIVE 9 PHYSICIAN PHYSICIAN METABOLIC S LAB S LAB PANEL HEMOGLOBI 09756 COMBINED COMBINED N 9 PHYSICIAN PHYSICIAN GLYCOSYLA S LAB S LAB BRAN A1C LIPID 45729 COMBINED COMBINED PANEL 9 PHYSICIAN PHYSICIAN S LAB S LAB COMPREHEN 60014 [facility] SIVE 9 [facility] METABOLIC INC INC PANEL L HRT 34634 [facility], CATHETERI 9 FAMILY ADELINE M ZATION PHYSICIAN [place] [address] [facility], C-CATHJ 9 FAMILY NESHIRAR M F/SLCTV C PHYSICIAN ANGRPH PSC I SI&R 95898 [facility], F/NJX PX 9 FAMILY NEZAR M DURING PHYSICIAN C-CATHJ PSC VENTR&/AT R ANGRPH I SI&R 27963 [facility], F/NJX PX 9 FAMILY NEZAR M DURING PHYSICIAN C-CATHJ PSC PULM&/OR SELECT ECG 15854 [place] ROUTINE 9 [place] III, ECG CLINIC SUZY L W/LEAST PSC 12 LDS I&R ONLY TCAT PLMT 41523 [facility], 9 FAMILY ADELINE M INTRACORO PHYSICIAN CULLENY PSC STENT PRQ 1 VESSEL INJECTION 58131 [facility], CARDIAC 9 FAMILY MANAR M CATHJ L PHYSICIAN VENTR/L PSC ATR ANGIOGRAP H CREATININ 93704 [facility] E BLOOD 9 [place] [address] [facility] UREA 9 [facility] NITROGEN INC INC QUANTITAT LYNN PROTHROMB 01337 [facility] IN TIME 9 [facility] INC INC ECHO 51794 [facility] TRANSTHOR 9 [facility] AC R-T 2D INC INC W/WO M-MODE REC COMP DOP 11175 [facility] ECHOCARD 9 [facility] COLOR INC INC FLOW VELOCITY MAPPING NON-INVAS 02338 [facility] LYNN ANNE 9 MEDICAL JUMANA P PHYSIOLOG IMAGING IC STUDY ASSOCIATE EXTREMITY S 3 LEVLS DOPPLER 19304 [facility] ECHOCARD 9 [facility] PULSE INC INC WAVE W/SPECTRA L DISPLAY ECHO 95772 [facility], TTHRC R-T 9 FAMILY NEZAR M 2D PHYSICIAN W/WOM-MOD PSC E COMPL SPEC&COLR D NATRIURET 47986 [facility] IC 9 [facility] [place] [address] [facility] THYROID 9 [facility] STIMULATI INC INC NG HORMONE TSH BLOOD 94142 [facility] COUNT 9 [facility] COMPLETE INC INC AUTO&AUTO DIFRNTL WBC COMPREHEN 39012 [facility] SIVE 9 [facility] METABOLIC INC INC PANEL COMPREHEN 78515 [facility] SIVE 9 [facility] METABOLIC INC INC PANEL LIPID 24538 [facility] PANEL 9 [facility] INC INC ALBUMIN 77302 [facility] URINE 9 [facility] MICROALBU INC INC MIN QUANTIATI VE ALBUMIN 43388 [facility] URINE 8 [facility] MICROALBU INC INC MIN QUANTIATI VE LIPID 43817 [facility] PANEL 8 [facility] INC INC HEMOGLOBI 79217 [facility] N 8 [facility] GLYCOSYLA INC INC BRAN A1C COMPREHEN 28542 [facility] SIVE 8 [facility] METABOLIC INC INC PANEL COMPREHEN 03415 [facility] SIVE 8 [facility] METABOLIC INC INC PANEL MYOCRD 70056 [facility] PRFUJ IMG 8 [facility] TOMOG INC INC SPECT ANALYTICS CONSULTANT STD MYOCRD 86395 [facility] PRFUJ STD 8 [facility] EJEC FXJ INC INC MYOCRD 80287 [facility] PRFUJ STD 8 [facility] WALL INC INC MOTION QUAL/CHAR STD HEMOGLOBI 98525 [facility] N 8 [facility] GLYCOSYLA INC INC BRAN A1C LIPID 44448 [facility] PANEL 8 [facility] INC INC ALBUMIN 85357 [facility] URINE 8 [facility] MICROALBU INC INC MIN QUANTIATI VE CV STRS 75364 [facility] COATS, TST 8 [facility] XERS&/OR HOSPITAL RX CONT PROF SERV ECG W/O I&R CV STRS 20587 [facility] COATS, TST 8 [facility] XERS&/OR HOSPITAL RX CONT PROF SERV ECG I&R ONLY CV STRS 92439 [facility] TST 8 [facility] XERS&/OR INC INC RX CONT ECG TRCG ONLY ECG 47280 [facility]ICK[facility] CHRIS, ROUTINE 8 [facility] ECG INTERNAL W/LEAST MED 12 LDS W/I&R ALBUMIN 17288 [facility] URINE 8 [facility] MICROALBU INC INC MIN QUANTIATI VE LIPID 22348 [facility] PANEL 8 [facility] INC INC HEMOGLOBI 17075 [facility] N 8 [facility] GLYCOSYLA INC INC BRAN A1C COMPREHEN 43302 [facility] SIVE 8 [facility] METABOLIC INC INC PANEL ALBUMIN 25876 [facility] CHRIS, URINE 8 [facility] MICROALBU INTERNAL MIN MED SEMIQUANT ITATIVE Encounters Encounter Start End Date Code Location Performer Type Date OFFICE 95786 Janelle ARAIZA OUTPATIEN 7 7 JORDANA PORTILLO T VISIT PSC 25 MINUTES OFFICE 53959 A C JOSE G OUTPATIEN 7 7 JORDANA PORTILLO T VISIT PSC 25 MINUTES [facility] OUTPATIEN INC T EMERGENCY 93467 [facility] DEPT 6 6 [facility] VISIT INC HIGH SEVERITY& THREAT FUNJ OFFICE 22512 A C JOSE G MICHELLE OUTPATIEN 6 6 JORDANA PORTILLO T VISIT PSC 15 MINUTES OFFICE 01198 A C JOSE G MICHELLE OUTPATIEN 6 6 JORDANA PORTILLO T VISIT PSC 10 MINUTES OFFICE 73853 A C JOSE G MICHELLE OUTPATIEN 6 6 JORDANA PORTILLO T VISIT PSC 25 MINUTES OFFICE 12239 A C JOSE G MICHELLE OUTPATIEN 5 5 JORDANA PORTILLO T VISIT PSC 15 MINUTES OFFICE 65631 A C DEWAYNEPELA OUTPATIEN 5 5 JORDANA HOUSTON T VISIT PSC 15 MINUTES OFFICE 95492 A C JOSE G MICHELLE OUTPATIEN 5 5 JORDANA PORTILLO T VISIT PSC 15 MINUTES OFFICE 22818 A C JOSE G MICHELLE OUTPATIEN 5 5 JORDANA PORTILLO T VISIT PSC 15 MINUTES OFFICE 41932 A C JOSE G MICHELLE OUTPATIEN 5 5 JORDANA PORTILLO T VISIT PSC 15 MINUTES [facility], 5 5 REGISTRY INPATIENT & HOME HE OFFICE 69109 A C JOSE G MICHELLE OUTPATIEN 5 5 JORDANA PORTILLO T VISIT PSC 15 MINUTES [facility], 5 5 REGISTRY INPATIENT & HOME HE OFFICE 09696 [facility] OUTPATIEN 5 5 PHYSICIAN T VISIT S GROUP 15 MINUTES OFFICE 08081 [facility] OUT[facility]IEN 5 5 [facility] T VISIT INC 10 MINUTES [facility] - 5 5 [facility] OUTPATIEN INC T EMERGENCY 20108 ISRAEL MCKEE DEPT 5 5 PHYSICIAN U CHANDLER VISIT S, [facility] HIGH SEVERITY& THREAT FUNJ OFFICE 84319 A Alexa MARTINEZ OUTPATIEN 5 5 JORDANA PORTILLO T VISIT PSC 15 MINUTES OFFICE 24803 A Alexa MARTINEZ OUTPATIEN 5 5 JORDANA PORTILLO T VISIT PSC 15 MINUTES [facility] 5 5 [facility] OUTPATIEN INC T OFFICE 42331 A Alexa MARTINEZ OUTPATIEN 5 5 JORDANA PORTILLO T VISIT PSC 25 MINUTES [facility] - 5 5 [facility] OUTPAT[facility] T OFFICE 21180 MITESH GRIFFITHS ANT CONSULTAT 5 5 MEDICAL ION SERV NEW/ESTAB FOUNDATIO PATIENT N 40 MIN [facility] OFF[facility] 01425 [facility] OUTPAT[facility] 5 5 PHYSICIAN LUL T VISIT S GROUP 15 MINUTES [facility] - [facility] 5 [facility] T OFFICE 06662 [facility] LORENZANA OUTPATIEN 5 5 DES DES T NEW 20 MINUTES [facility] - [facility] 5 [facility] T OFFICE 30043 [facility] OUT[facility] 5 5 PHYSICIAN LUL T VISIT S GROUP 15 MINUTES [facility]OSP[facility] PRE[facility] - 5 5 [facility] PRE[facility] 5 5 [facility] T OFFICE 74566 [facility] OUT[facility] 4 4 PHYSICIAN LUL T NEW 30 S GROUP MINUTES OFFICE 67718 A Alexa MARTINEZ OUTPATIEN 4 4 JORDANA PORTILLO T VISIT [facility] 25 MINUT[facility] EMERGENCY 13076 [facility] PHYS HIGH/URGE NT SEVERITY [facility]ST[facility] - 4 4 [facility] OFFICE 96116 A Alexa MARTINEZ OUTPATIEN 4 4 JORDANA PORTILLO T VISIT PSC 25 MINUTES OFFICE 29827 JOSE G MARTINEZ OUTPATIEN 4 4 T VISIT 25 MINUTES EMERGENCY 41551 [facility] DE[facility] 4 [address] [facility] VISIT HIGH SEVERITY& THREAT FUN OFFICE 15201 JOSE G MARTINEZ OUTPATIEN 4 4 T VISIT 25 MINUTES OFFICE 28496 A Alexa MARTINEZ OUTPATIEN 3 3 JORDANA PORTILLO T VISIT PSC 25 MINUTES Emergency DK Patel (ER) 3 07:49 3 09:45 [facility] EMERGENCY 35316 EDUARDO PATEL DEPT 3 3 EMERGENCY [facility] VISIT SERVICES HIGH SEVERITY& THREAT [facility] PRESTON - 3 3 [facility]IEN [facility] PRESTON - 3 3 [facility] PRESTON - 3 3 [facility] OFFICE 74254 A Alexa MARTINEZ OUTPATIEN 3 3 JORDANA PORTILLO T VISIT PSC 25 MINUTES HOSPITAL PRESTON - 3 3 [facility] PRESTON - 3 3 [facility] PRESTON - 3 3 [facility] OFFICE 46069 JOSE G ARCHULETA MICHELLE OUTPATIEN 3 3 T VISIT 15 MINUTES OFFICE 71651 JOSE G ARCHULETA MICHELLE OUTPATIEN 3 3 T VISIT 15 MINUTES H[facility] PRESTON - 3 3 [facility] INC T OFFICE 56093 JOSE G ARCHULETA MICHELLE OUTPATIEN 3 3 T VISIT 25 MINUTES OFFICE 61091 JOSE GPAVEL ARCHULETA MICHELLE OUTPATIEN 2 2 T VISIT 25 MINUTES OFFICE 40052 SAMIRA SAMIRA OUTPATIEN 2 2 ROSANNA ROSANNA T VISIT 25 MINUTES OFFICE 16935 SAMIRA SAMIRA OUTPATIEN 2 2 ROSANNA ROSANNA T VISIT 25 MINUTES OFFICE 37216 A C SAMIRA OUTPATIEN 1 1 JORDANA PORTILLO ROSANNA T VISIT PSC 25 MINUTES OFFICE 24443 A C OUTPATIEN 1 1 JORDANA PORTILLO T VISIT PSC 25 MINUTES [facility] - 1 1 [facility] T [facility] - [facility] 1 [facility] T OFFICE 34163 [place] [facility] CONSULTAT 1 1 MEDICAL ION SERV NEW/ESTAB FOUNDATIO PATIENT 60 MIN OFFICE 69226 [facility] 1 1 PHYSICIAN JULIETH T VISIT S GROUP 25 MINUTES [facility] - [facility] 1 [facility] 26959 [facility] 1 PHYSICIAN JULIETH T VISIT S GROUP 25 MINUTES OFFICE 64883 A C SAMIRA OUTPATIEN 1 1 JORDANA PORTILLO ROSANNA T VISIT PSC 25 MINUTES OFFICE 15740 [facility] OUTPATIEN 1 1 [facility] 15 PSC MINUTES OFFICE 08019 [place] [facility] 1 1 [place] [facility] NEW/ESTAB PSC PATIENT 60 MIN [facility] - 1 1 [facility] T [facility] - 0 0 [facility] T OFFICE 85398 A C SAMIRA OUTPATIEN 0 0 JORDANA MARTE T VISIT PSC 25 MINUTES OFFICE 10385 A C SAMIAR OUTPATIEN 0 0 JORDANA MARTE T VISIT PSC 15 MINUTES OFFICE 40326 A C SAMIRA, OUTPATIEN 0 0 JORDANA MALONE T VISIT PSC 25 MINUTES OFFICE 14248 A Alexa SILVEIRA, A OUTPATIEN 0 0 JORDANA Liu T VISIT 5 PSC MINUTES OFFICE 70928 A C SAMIRA, OUTPATIEN 0 0 JORDANA PORTILLO KIRA T NEW 45 PSC MINUTES OFFICE 61040 [facility] ALLRAN OUTPATIEN 0 0 JR VLADIMIR, T VISIT SAMUEL Oliva 15 MINUTES OFFICE 03641 ALLRAN ALLRAN OUTPATIEN 9 9 JR VLADIMIR, T VISIT SAMUEL Oliva 15 MINUTES [facility] - 9 9 [facility] T EMERGENCY [id number] EDUARDO YUAN, DEPT 9 9 EMERGENCY JESSICA S VISIT SERVICES HIGH SEVERITY& ASSOCIATE THREAT S [facility] PRE[facility] - 9 9 [facility] INPATIENT INC OFFICE 66533 [facility], OUTPATIEN 9 9 [place] [facility] T VISIT 5 INTERNAL MINUTES MED OFFICE 78343 [facility], OUTPATIEN 9 9 [place] T VISIT 5 INTERNAL MINUTES MED OFFICE 87866 [facility], OUTPATIEN 9 9 [place] [facility] T VISIT 5 INTERNAL MINUTES MED OFFICE 72704 [facility] MCKEMIE OUTPATIEN 9 9 [place] JR, T VISIT 5 INTERNAL YOSSI F MINUTES MED OFFICE 59673 [facility], OUTPATIEN 9 9 [place] T VISIT 5 INTERNAL MINUTES MED OFFICE 22510 [facility], OUTPATIEN 9 9 AIL[place] Luis T VISIT 5 INTERNAL MINUTES MED OFFICE 70784 [facility] PAULY OUTPATIEN 9 9 AILIN Luis T VISIT 5 INTERNAL MINUTES MED OFFICE 26881 [facility] LEL[facility] OUTPATIEN 9 9 AIL[facility] GILBERT, T VISIT 5 INTERNAL YOSSI F MINUTES MED OFFICE 24383 [facility] OUTPATIEN 9 9 AILIN Luis T VISIT INTERNAL 25 MED MINUTES OFFICE 98996 [facility] 9 9 FAMILY ADELINE Perry T VISIT PHYSICIAN 25 PSC MINUTES [facility] - 9 9 [facility] - 9 9 [facility] INC T OFFICE 87026 [facility] 9 9 FAMILY ADELINE Perry T VISIT PHYSICIAN 25 PSC MINUTES [facility] 9 [facility] T OFFICE 60066 [facility] CONSULT 9 9 FAMILY ADELINE Perry ION PHYSICIAN NEW/ESTAB PSC PATIENT 60 MIN [facility] - 9 9 [facility] T OFFICE 89646 [facility] OUTPATICONSTANTINE 9 9 AILIN ZAVALA T VISIT INTERNAL 15 MED MINUTES [facility] 8 [facility] T OFFICE 09113 [facility] OUTPATIEN 8 8 AIL[facility] LUCAS T VISIT INTERNAL 15 MED MINUTES [facility] 8 [facility] T OFFICE 95882 [facility] OUTPATIEN 8 8 AILIN LUCAS T VISIT INTERNAL 15 MED MINUTES OFFICE 06025 [facility] FLOYD 8 8 [place] T VISIT INTERNAL 15 MED MINUTES [facility] - 8 8 [facility] T OFFICE 59822 M[facility] FLOYD 8 8 [place] T VISIT INTERNAL 15 MED MINUTES OFFICE 18920 MAMTA WAITE 8 8 [place] Luis T VISIT INTERNAL 15 MED MINUTES OFFICE 70798 [facility] BRANCH 8 8 [facility] T VISIT SERV N 15 FOUNDATIO MINUTES
[2017-05-24 18:49] LABS: HEMOGLOBIN 10.8 g/dL (14.1-18.0); LYMPH # 2.2 K/mm3 (0.7-4.5); LYMPH % 25.2 % (10-50)
--- OUTSIDE RECORDS SUMMARY | 2017-05-24 18:56 | External Medical Summary Rpt ---
Author Author , BARRY Organization BARRY Address Unknown Phone [email or web address] Care Team Providers Care Rn Perioperative Name Role Phone A Alexa SILVEIRA MD PSC, A Unavailable Unavailable Alexa SILVEIRA MD PSC ALFARIS MOH, ALFARIS Unavailable Unavailable MOH ALFARIS MOH, ALFARIS Unavailable Unavailable MOH ALLRAN JR LUL, ALLRAN Unavailable Unavailable JR LUL ALLRAN JR, SAMUEL F, Unavailable Unavailable ALLRAN JR, SAMUEL F BESSON MICHELLE, BESSON Unavailable Unavailable MICHELLE MARCIANOSON, SADE A, Unavailable Unavailable BESSON SADE A HAYDEE LOUISE, Unavailable Unavailable HAYDEE LOUISE LIMA ALL, LIMA ALL Unavailable Unavailable TUNDE ANT, TUNDE ANT Unavailable Unavailable CRISS SHA, CRISS Unavailable Unavailable [facility] Unavailable Unavailable [facility], [facility] Un[facility] TARUN III, SUZY L, Unavailable Unavailable TARUN III, SUZY L RIN MARGARITA, Unavailable Unavailable RIN MARGARITA RIN MARGARITA, Unavailable Unavailable RIN MARGARITA RIN, MATY, Unavailable Unavailable RIN, MATY FAJARDO HECTOR, FAJARDO HECTOR Unavailable Unavailable [facility] Unavailable Unavailable [place], [facility] [place] [facility] Unavailable Unavailable [facility], Unavailable Unavailable [facility] MICHAEL S, Unavailable Unavailable JESSICA YUAN NELSON, ELVI NELSON Unavailable Unavailable [facility] Un[facility] Un[facility], [facility] Unavailable Unavailable [facility]PITAL P, [facility] LUCAS PEREZ HARVEY, Unavailable Unavailable LUCAS [facility], Unavailable Unavailable [facility], [facility] Unavailable Unavailable [facility], [facility] KILPELA JEA, KILPELA Unavailable Unavailable [facility] Unavailable Unavailable [facility], [facility], Unavailable Unavailable [facility] LORENZANA DES, LORENZANA Unavailable Unavailable DES LORENZANA DES, LORENZANA Unavailable Unavailable DES NICHOLAS JR DWI, NICHOLAS Unavailable Unavailable JR DWI NICHOLAS, FRANCISCO E, Unavailable Unavailable FRANCISCO PETERSON E M E D SUPPLIES, M E D Unavailable Unavailable SUPPL[facility] Unavailable Unavailable SERVICES, [facility] LELAND GILBERT, SHARONA Unavailable Unavailable F, LELAND GILBERT, SHARONA F JUMANA ANNE P, Unavailable Unavailable JUMANA ANNE P JOSE G ARAIZA Unavailable Unavailable JOSE G MICHELLE, JOSE G MICHELLE Unavailable Unavailable JOSE G MICHELLE, JOSE G MICHELLE Unavailable Unavailable [facility] Unavailable Unavailable PSC, [facility] PSC NORELLE SANDRA, NORELLE Unavailable Unavailable [facility] [...] ROSANNA SAMIRA, KIRA, Unavailable Unavailable SAMIRA, KIRA SERENE RIGGS, SERENE Unavailable Unavailable ONEIL SOMYRONEANAMITA CHANDLER, Unavailable Unavailable [facility]OT[facility]U [facility] Un[facility]available [facility], [facility] TALITA SHE, Unavailable Unavailable TALITA SHE ORVILLE MAT, ORVILLE MAT Unavailable Unavailable [facility] Unavailable Unavailable [facility]591, [facility] Unavailable Unavailable [facility]591, [facility] # Unavailable Unavailable [id number], [facility] # [id number] Janelle SILVEIRA WRIGHT, Unavailable Unavailable A Alexa Purpose Continuity of Care Document - 11-11-2007 through 2016 Problems Code Diagnosis DOS Provider Status E1140 TYPE 2 DM 03-16-2017 A Alexa SILVEIRA WITH [facility] DIABETIC NEUROPATHY UNSPECIFIED E782 MIXED 03-16-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 SILVEIRA HYPERLIPIDE [facility] TONIE G894 CHRONIC 03-16-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 SILVEIRA PAIN [facility] SYNDROME I10 ESSENTIAL 03-16-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 SILVEIRA PRIMARY [facility] HYPERTENSIO N I739 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-16-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 SILVEIRA VASCULAR PSC DISEASE UNSPECIFIED N183 CHRONIC 03-16-2017 A Alexa SILVEIRA KIDNEY PSC DISEASE STAGE 3 MODERATE Z720 TOBACCO USE 03-16-2017 A Alexa SILVEIRA MD PSC E1122 TYPE 2 11-18-2016 A Alexa SILVEIRA DIABETES PSC MELLITUS W/DIAB CHRON KIDNEY DZ E1142 TYPE 2 11-18-2016 A Alexa SILVEIRA DIABETES PSC MELLITUS W/DIAB POLYNEUROPA THY E1151 TYPE 2 DM 11-18-2016 A Alexa Zacarias/ROXANA PORTILLO PSC PERIPH 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 R809 PROTEINURIA 11-18-2016 A Alexa SILVEIRA MD PSC UNSPECIFIED X44489 COMBINED 06-17-2016 [facility] CAT[facility] LEFT EYE Z28869 COMBINED 05-20-2016 [facility] CAT[facility] RIGHT EYE E119 TYPE 2 03-14-2016 [facility] WITHOUT COMPLICATIO NS R079 CHEST PAIN 03-14-2016 [place] [facility] R42 DIZZINESS 03-14-2016 [place] [facility] 19573 DIAB W/O 08-07-2015 A Alexa SIERRA MD PSC COMP TYPE II/UNS TYPE UNCNTRL V0481 NEED 07-31-2015 A Alexa SILVEIRA PROPHYLACTI PSC C VACCINATION &INOCULATIO N FLU 6825 CELLULITIS 06-19-2015 NURSES AND ABSCESS REGISTRY & OF [facility] HOME HE 6850 PILONIDAL 06-19-2015 NURSES CYST WITH REGISTRY & ABSCESS HOME HE 11077 DIAB 05-31-2015 A Alexa Zacarias/BERONICA PORTILLO PSC MANIFESTS TYPE II/UNS TYPE UNCNTRL 19219 DIAB W/O 05-28-2015 [facility] TYPE I [facility] [JUV] NOT INC STATED UNCNTRL 4019 UNSPECIFIED 05-28-2015 [facility] ESSENTIAL [facility] [place] N 70951 SQUAMOUS 05-07-2015 [facility] CARCINOMA SKIN TRUNK EXCPT SCROTUM 2382 NEOPLASM OF 05-07-2015 [facility] BEHAVIOR OF SKIN V8533 BODY MASS 05-07-2015 A Alexa MCKEON MD PSC 33.0-33.9 ADULT V8534 BODY MASS 02-20-2015 A Alexa MCKEON MD PSC 34.0-34.9 ADULT 7873 FLATULENCE 02-06-2015 [place] [facility] PAIN 87529 ABDOMINAL 02-06-2015 [place] [facility] U[facility]PECIFIED IM[facility]ING ASS SITE 3384 CHRONIC 01-30-2015 A Alexa SILVEIRA PAIN PSC SYNDROME 4011 ESSENTIAL 01-30-2015 A Alexa SILVEIRA HYPERTENSIO PSC N, BENIGN 01191 ATHEROSLERO 01-30-2015 A Alexa ESPINOZA MD PSC EXTREM W/INTERMIT CLAUDICAT 2859 UNSPECIFIED 01-29-2015 [place] [facility] 10359 UNSPECIFIED 01-29-2015 [place] [facility] N 50388 OTHER 01-19-2015 [facility] DISORD[facility] OF INTESTINE 5758 OTHER 01-19-2015 [place] SPECIFIED [facility]ICAL DISORDER OF IMAGING ASS GALLBLADDER 98650 ABDOMINAL 01-16-2015 [facility] PAIN, PHYSICIANS GENERALIZED GROUP V1272 PERSONAL 01-16-2015 [facility] HISTORY OF PHYSICIANS COLONIC GROUP POLYPS 38359 UNSPECIFIED 12-28-2014 [facility] NEOPLASM INC SCALP & SKIN NECK 2150 OTH BOB 12-28-2014 [facility] NEOPLSM CNCTV&OTH SFT TISS HEAD FCE&NCK 02308 OTHER 12-28-2014 [facility] KERATOSIS 7099 UNSPECIFIED 12-28-2014 [facility] DISORDER ANESTH OF OF THE BLUE SKIN&SUBCUT ANEOUS TISSUE V7284 UNSPECIFIED 12-27-2014 [facility] VE EXAMINATION 2113 BENIGN 11-21-2014 [facility], NEOPLASM OF LLC COLON 62366 DIVERTICULO 11-21-2014 [facility] SIS OF PHYSICIANS COLON GROUP V6709 FOLLOW-UP 11-21-2014 [facility] EXAMINATION ANESTH OF FOLLOWING THE BLUE OTHER SURGERY V7651 SPECIAL 11-21-2014 [facility] SCREENING PHYSICIANS FOR GROUP MALIGNANT NEOPLASMS COLON 6851 PILONIDAL 11-07-2014 [facility] CYST PHYSICIANS WITHOUT GROUP MENTION OF ABSCESS 88511 DIAB 10-19-2014 A Alexa SILVEIRA W/RENAL PSC MANIFESTS TYPE II/UNS TYPE UNCNTRL 54511 CHEST PAIN 10-19-2014 A Alexa SILVEIRA UNSPECIFIED PSC V0382 NEED PROPH 10-19-2014 A Alexa SILVEIRA VACCINATION PSC AGAINST STREP PNEUMONE 4660 ACUTE 08-07-2014 [facility] 496 CHRONIC 08-07-[address] [facility] N EMERGENCY OBSTRUCTION PHYS NEC 82268 SHORTNESS 08-07-2014 [facility] 51916 WHEEZING 08-07-2014 [facility] N [facility] PHYS 7862 COUGH 08-07-2014 [facility] 2724 OTHER AND 07-31-2014 [facility] INC HYPERLIPIDE TONIE 4280 CONGESTIVE 07-31-2014 [place] [facility] UNSPECIFIED 7910 PROTEINURIA 07-20-2014 A Alexa SILVEIRA MD PSC 4293 CARDIOMEGAL 01-23-2014 RIN Y MARGARITA 486 PNEUMONIA, 01-23-2014 [facility] ORGANISM UNSPECIFIED 31998 PRECORDIAL 01-23-2014 [facility] PAIN 591 HYDRONEPHRO 06-05-2013 [facility] SIS MARGARITA 5920 CALCULUS OF 06-05-2013 [facility] 5941 OTHER 06-05-2013 RIN CALCULUS IN MARGARITA BLADDER 50524 URINARY 06-05-2013 [facility] OBSTRUCTION MARGARITA UNSPECIFIED 68177 ABDOMINAL 06-05-2013 [facility]Y EPIGASTRIC SERVICES 87753 ATHEROSCLER 05-01-2013 [facility] [place] [facility] ART INC EXTREMITIES UNSPEC 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 04-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 [facility] ATHEROSCLER [facility] [place] INC CORONARY ARTERY 1330 SCABIES 04-05-2013 Janelle SILVEIRA MD [facility] 65238 EMBOLISM&TH 03-07-2013 [facility] ROMBOSIS [facility] ARTERIES INC LOWER EXTREMITY 4659 ACUTE URIS 01-20-2013 JOSE G MICHELLE OF UNSPECIFIED SITE 24467 ATHEROSLERO 12-24-2012 [facility] [place] ART MARGARITA EXTREMITIES W/REST PAIN 7820 DISTURBANCE 12-24-2012 [facility] OF SKIN [facility] SENSATION INC V7644 SPECIAL 02-11-2012 SAMIRA ROSANNA SCREENING MALIGNANT NEOPLASM OF PROSTATE E9479 UNSPEC 11-10-2011 [facility] [place] [address] SPONDYLOSIS 08-07-2011 A Alexa SILVEIRA WITH PSC MYELOPATHY LUMBAR REGION 7242 LUMBAGO 05-06-2011 Janelle SILVEIRA MD PSC 2809 UNSPECIFIED 02-10-2011 [place] [facility]IENC[facility] F[facility]AT[facility] ANEMIA V7281 PRE-OPERATI 01-13-2011 [facility] PHYSICIANS CARDIOVASCU GROUP LAR EXAMINATION 38104 PAIN IN 12-17-2010 [facility] REGION AND THIGH 7213 LUMBOSACRAL 12-17-2010 [facility] SPONDYLOSIS CLINIC [facility] WITHOUT MYELOPATHY 7295 PAIN IN 12-17-2010 [facility] [place] TISSUES OF CLINIC [facility] LIMB 91598 DISPLCMT 11-05-2010 [facility] LUMBAR MEDICAL INTERVERT IMAGING ASS DISC W/O MYELOPATHY 3569 UNSPEC 10-17-2010 A Alexa EVANS&IDI [facility] OPATHIC PERIPHERAL NEUROPATHY 13264 SPINAL STEN 10-17-2010 A Alexa JEAN MD [facility] W/O NEUROGENIC CLAUDICATIO N 5693 HEMORRHAGE 12-13-2009 [facility] JR, OF RECTUM SAMUEL F AND ANUS 58269 DIAB W/O 10-09-2009 [facility] COMP TYPE [facility] II/UNS NOT INC STATED UNCNTRL 7921 NONSPECIFIC 10-09-2009 [facility] ABNORMAL [facility] FINDING IN INC STOOL CONTENTS V5869 LONG-TERM 10-09-2009 [facility] (CURRENT) [facility] USE OF INC OTHER MEDICATIONS 2851 ACUTE 10-05-2009 [facility] GILBERT, POSTHEMORRH SAMUEL F AGIC ANEMIA 61684 COR 10-03-2009 [facility] ATHEROSLERO [facility] UNSPEC INC TYPE VESSEL [place]/MALOU T 5789 UNSPECIFIED 10-03-2009 [facility] HEMORRHAGE [facility] GASTROINTES PROF SERV TINAL TRACT 65933 UNSPECIFIED 10-03-2009 [facility] PYELONEPHRI SERVICES TIS ASSOCIATES 5990 URINARY 10-03-2009 [facility] INFE[facility]OSPITAL SITE NOT PROF SERV SPECIFIED 78300 OSTEOARTHRO 10-03-2009 [facility] S UNSPEC [facility] WHETHER INC GEN/LOC UNSPEC SITE 7880 RENAL COLIC 10-03-2009 [facility] 75839 ABDOMINAL 10-03-2009 [facility] OTHER EMERGENCY SPECIFIED SERVICES SITE ASSOCIATES 2662 OTHER 05-08-2009 [facility] B-COMPLEX [place] DEFICIENCIE INTERNAL S MED 2810 PERNICIOUS 04-09-2009 [facility] ANEMIA [place] INTERNAL MED 3559 MONONEURITI 03-13-2009 [facility] S OF AMERIC UNSPECIFIED HOLDING SITE V4582 POSTSURG 01-17-2009 [facility] PERCUT FAMILY TRANSLUMINA PHYSICIAN L COR PSC ANGPLSTY STS 4111 INTERMEDIAT 01-03-2009 [facility] 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 PHYSICIAN PSC 4139 OTHER AND 01-03-2009 NEW UNSPECIFIED [facility] PSC PECTORIS V7283 OTHER 01-01-2009 [facility] SPECIFIED [facility] PRE-OPERATI INC VE EXAMINATION 4439 UNSPECIFIED 12-21-2008 [place] PERIPHERAL MEDICAL VASCULAR IMAGING DISEASE ASSOCIATES 57248 OTHER 12-20-2008 [facility] MALAISE AND FAMILY FATIGUE PHYSICIAN PSC 7823 EDEMA 12-20-2008 [facility] PHYSICIAN PSC 08301 ORTHOPNEA 12-20-2008 [facility] PHYSICIAN PSC 69750 UNSPECIFIED 11-22-2008 [facility] INTERNAL MED ABNORMALITY 3572 POLYNEUROPA 09-20-2008 [facility] THY IN [place] DIABETES INTERNAL MED 45827 SPINAL 03-13-2008 [facility] STENOSIS [place] OTHER INTERNAL REGION MED OTHER THAN CERVICAL 01608 DEGEN 11-11-2007 [place] [facility]/LUMB SERV OSACRAL FOUNDATIO INTERVERTEB RAL DISC Medications Na ND Rx Da Fi Fi Am Da Di Ph RX Ph St me C No te ll ll ou ys ag ar # ys at rm s nt no ma ic us Or Da si cy ia de te s n re d PL 63 09 09 2 30 30 EA 24 RI Ac AV 65 -2 -[address] 29 SH ti IX 31 SI 75 ER ve 17 20 20 DE 75 10 11 11 RI 6 PH CH MG AR AR MA D TA CY BL ET OF CY NT HI AN A TR 09 2 30 30 EA 24 RI [...] ti NO 23 SI 80 ER ve DE 76 20 20 DE IL 08 11 [...] OF CY NT HI AN A JA 09 09 2 60 30 EA 24 RI Ac NU 00 -2 -[address] 29 SH ti ME 60 SI 74 ER ve T 57 20 20 DE 50 76 11 11 RI -1 1 PH CH ,0 AR AR 00 MA D CY MG OF TA BL CY ET NT HI AN A AT 00 09 09 2 60 30 EA 24 MO Ac EN 78 -2 -[address] 29 SE ti OL 11 9- 9- 00 SI 73 S ve OL [address] 80 11 11 EP 25 1 PH HE AR N MG MA A CY TA BL OF ET CY NT HI AN A DE 37 06 09 2 30 30 EA 23 RI Ac IL 00 -2 -[address] 10 SH ti OS 00 8- 3- 00 SI 95 ER ve EC 45 20 20 DE 50 11 11 RI OT 2 PH CH C AR AR 20 MA D .6 CY MG OF TA CY BL NT ET HI AN A LI 00 06 08 2 60 30 EA 23 RI Ac SI 17 -2 -[address] 10 SH ti NO 23 8- 9 SI 91 ER ve DE 76 20 20 DE IL 08 11 11 RI 0 PH CH 20 AR AR MA D MG CY TA OF BL ET CY NT HI AN A TR 00 06 08 2 30 30 EA 23 RI Ac IC 07 -2 -[address] 10 SH ti OR 46 8 9 SI 93 ER ve 12 20 20 DE 14 39 11 11 RI 5 0 PH CH MG AR AR MA D TA CY BL ET OF CY NT HI AN A PL 63 06 08 2 30 30 EA 23 RI Ac AV 65 -2 -[address] 10 SH ti IX 31 8- 9 SI 94 ER ve 17 20 20 DE 75 10 11 11 RI 6 PH CH MG AR AR MA D TA CY BL ET OF CY NT HI AN A JA 00 06 08 2 60 30 EA 23 RI Ac NU 00 -2 -[address] 10 SH ti ME 60 8- 9 00 SI 96 ER ve T 57 [...] ST 10 SH ti IX 31 8- - 00 SI 94 ER ve 17 20 20 DE 75 10 11 11 RI 6 PH CH MG AR AR MA D TA CY BL ET OF CY NT HI AN A DE 37 06 08 2 30 30 EA 23 RI Ac IL 00 -2 -[address] 10 SH ti OS 00 8 SI 95 ER ve EC 45 20 20 DE 50 11 11 RI OT 2 PH CH C AR AR 20 MA D .6 CY MG OF TA CY BL NT ET HI AN A JA 00 06 08 2 60 30 EA 23 RI Ac NU 00 -2 -[address] 10 SH ti ME 60 8 SI 96 ER ve T 57 20 20 DE 50 76 11 11 RI -1 1 PH CH ,0 AR AR 00 MA D CY MG OF TA BL CY ET NT HI AN A AT 00 07 07 5 30 30 EA 23 MO Ac EN 78 -2 -[address] 43 SE ti OL 11 6- 6 SI 08 S ve OL [address] 80 11 11 EP 25 1 PH HE AR N MG MA A CY TA BL OF ET CY NT HI AN A 64 06 06 2 60 30 EA 23 RI Ac 67 -2 -[address] 10 SH ti 90 8 9 SI 91 ER ve 94 20 20 DE 10 11 11 RI 6 PH CH AR AR MA D CY OF CY NT HI AN A TR 00 06 06 2 30 30 EA 23 RI Ac IC 07 -2 -[address] 10 SH ti OR 46 8 9 SI 93 ER ve 12 20 20 DE 14 39 11 11 RI 5 0 PH CH MG AR AR MA D TA CY BL ET OF CY NT HI AN A PL 63 06 06 2 30 30 EA 23 RI Ac AV 65 -2 -[address] 10 SH ti IX 31 8 9 SI 94 ER ve 17 20 20 DE 75 10 11 11 RI 6 PH CH MG AR AR MA D TA CY BL ET OF CY NT HI AN A DE 37 06 06 2 30 30 EA 23 RI Ac IL 00 -2 -[address] 10 SH ti OS 00 8 9 SI 95 ER ve EC 45 20 [...] CY ET NT HI AN A AT 51 03 [...] CY BL # ET 10 05 91 TR 00 06 06 0 30 30 WA 71 RI Ac IC 07 -0 -0 .0 L- 21 SH ti OR 46 2- 2- 00 MA 66 ER ve 12 20 20 RT 4 14 39 11 11 RI 5 0 PH CH MG AR AR MA D TA CY BL # ET 10 05 91 LI 68 06 06 0 60 30 WA 71 RI Ac SI 18 -0 -0 .0 L- 21 SH ti NO 00 2- 2- 00 MA 66 ER ve DE 51 20 20 RT 7 IL 50 11 11 RI 1 PH CH 20 AR AR MA D MG CY # TA BL 10 ET 05 91 JA 00 06 06 0 60 30 WA 71 RI Ac NU 00 -0 -0 .0 L- 21 SH ti ME 60 2- 2- 00 MA 66 ER ve T 57 20 20 RT 9 50 76 11 11 RI -1 1 PH CH ,0 AR AR 00 MA D CY MG # TA 10 BL 05 ET 91 DE 37 06 06 0 30 30 WA 88 RI Ac IL 00 -0 -0 .0 L- 18 SH ti OS 00 2- 2- 00 MA 13 ER ve EC 45 20 20 RT 3 50 11 11 RI OT 4 PH CH C AR AR 20 MA D .6 CY # MG 10 TA 05 BL 91 ET AT 51 03 05 5 30 30 [...] 3- 2- 00 MA 31 ER ve DE 51 20 20 RT 2 IL 50 11 11 RI 1 PH CH 20 AR AR MA D MG CY # TA BL 10 ET 05 91 TR 00 03 05 2 30 30 WA 71 RI Ac IC 07 -0 -0 .0 L- 09 SH ti OR 46 3- 2- 00 MA 31 ER ve 12 20 20 RT 3 14 39 11 11 RI 5 0 PH CH MG AR AR MA D TA CY BL # ET 10 05 91 DE 37 03 05 2 30 30 WA 88 RI Ac IL 00 -0 -0 .0 L- 17 SH ti OS 00 3- 2- 00 MA 56 ER ve EC 45 20 20 RT 0 50 11 11 RI OT 4 PH CH C AR AR 20 MA D .6 CY # MG 10 TA 05 BL 91 ET JA 00 03 05 2 60 30 [...] TA # BL ET 10 05 91 JA 00 03 03 2 60 30 WA 71 RI Ac NU 00 -0 -3 .0 L- 09 SH ti ME 60 3- 0- 00 MA 31 ER ve T 57 20 20 RT 0 50 76 11 11 RI -1 1 PH CH ,0 AR AR 00 MA D CY MG # TA 10 BL 05 ET 91 LI 68 03 03 2 60 30 WA 71 RI Ac SI 18 -0 -3 .0 L- 09 SH ti NO 00 3- 0- 00 MA 31 ER ve DE 51 20 20 RT 2 IL 50 11 11 RI 1 PH CH 20 AR AR MA D MG CY # TA BL 10 ET 05 91 TR 00 03 03 2 30 30 WA 71 RI Ac IC 07 -0 -3 .0 L- 09 SH ti OR 46 3- 0- 00 MA 31 ER ve 12 20 20 RT 3 14 39 11 11 RI 5 0 PH CH MG AR AR MA D TA CY BL # ET 10 05 91 DE 37 03 03 2 30 30 WA 88 RI Ac IL 00 -0 -3 .0 L- 17 SH ti OS 00 3- 0- 00 MA 56 ER ve EC 45 20 20 RT 0 50 11 11 RI OT 4 PH CH C AR AR 20 MA D .6 CY # MG 10 TA [address] 63 10 03 3 30 30 WA 70 FA Ac AV 65 -1 -2 .0 L- 90 LL ti IX 31 9- 9- 00 MA 79 UJ ve 17 20 20 RT 0 I 75 10 10 11 NE 6 PH ZA MG AR R MA M TA CY BL # ET 10 05 91 AT 51 03 03 5 30 30 WA 71 FA Ac EN 07 -1 -1 .0 L- 10 LL ti OL 90 1- 1- 00 MA 64 UJ ve OL 75 20 20 RT 4 I 96 11 11 NE 25 3 PH ZA AR R MG MA M CY TA # BL ET 10 05 91 DE 37 03 03 2 30 30 WA 88 RI Ac IL 00 -0 -0 .0 L- 17 SH ti OS 00 3- 3- 00 MA 56 ER ve EC 45 20 20 RT 0 50 11 11 RI OT 4 PH CH C AR AR 20 MA D .6 CY # MG 10 TA 05 BL 91 ET JA 00 03 03 2 60 30 WA 71 RI Ac NU 00 -0 -0 .0 L- 09 SH ti ME 60 3- 3- 00 MA 31 ER ve T 57 20 20 RT 0 50 76 11 11 RI -1 1 PH CH ,0 AR AR 00 MA D CY MG # TA 10 BL 05 ET 91 LI 54 03 03 2 60 30 WA 71 RI Ac SI 45 -0 -0 .0 L- 09 SH ti NO 80 3- 3- 00 MA 31 ER ve DE 99 20 20 RT 2 IL 61 11 11 RI 0 PH CH 20 AR AR MA D MG CY # TA BL 10 ET 05 91 TR 00 03 03 2 30 30 WA 71 RI Ac IC 07 -0 -0 .0 L- 09 SH ti OR 46 3- 3- 00 MA 31 ER ve 12 20 20 RT 3 14 39 11 11 RI 5 0 PH CH MG AR AR MA D TA CY BL # ET 10 05 91 FU 63 03 03 2 30 30 WA 71 RI Ac RO 30 -0 -0 .0 L- 09 SH ti SE 40 3- 3- 00 MA 31 ER ve MD 62 20 20 RT 4 DE 41 11 11 RI 0 PH CH 20 AR AR MA D MG CY # TA BL 10 [address] 63 10 02 3 30 [...] 7- 5- 00 MA 82 ER ve DE 99 20 20 RT 3 IL 61 10 11 RI 0 PH CH 20 AR AR MA D MG CY # TA BL 10 ET 05 91 ME 53 12 01 1 12 30 WA 70 RI Ac TF 74 -2 -2 0. L- 99 SH ti OR 60 7- 5- 00 MA 82 ER ve MD 17 20 20 0 RT 4 N [...] ET 10 05 91 GL 00 12 01 1 12 30 [...] UL 05 E 91 FU 63 12 01 1 30 30 WA 70 RI Ac RO 30 -2 -2 .0 L- 99 SH ti SE 40 7- 5- 00 MA 82 ER ve MD 62 20 20 RT 9 DE 41 [...] # TA BL 10 ET 05 91 DE 37 12 01 1 30 30 WA 88 RI Ac IL 00 -2 -2 .0 L- 17 SH ti OS 00 7- 5- 00 MA 16 ER ve EC 45 20 20 RT 8 50 10 11 RI OT 4 PH CH C AR AR 20 MA D .6 CY # MG 10 TA 05 BL 91 ET LI 54 12 12 1 60 30 WA 70 RI Ac SI 45 -2 -2 .0 L- 99 SH ti NO 80 7- 7- 00 MA 82 ER ve DE 99 20 20 RT 3 IL 61 10 10 RI 0 PH CH 20 AR AR MA D MG CY # TA BL 10 ET 05 91 ME 53 12 12 1 12 30 WA 70 RI Ac TF 74 -2 -2 0. L- 99 SH ti OR 60 7- 7- 00 MA 82 ER ve MD 17 20 20 0 RT 4 N [...] 7- 7- 00 MA 82 ER ve MD 62 20 20 RT 9 DE 41 10 10 RI 0 PH CH 20 AR AR MA D MG CY # TA BL 10 ET 05 91 SI 68 12 12 1 30 30 WA 70 RI Ac MV 18 -2 -2 .0 L- 99 SH ti 00 MA 83 ER ve TA 48 20 20 RT 0 TI 10 10 10 RI N 2 PH CH 80 AR AR MA D MG CY # TA BL 10 ET 05 91 DE 37 12 12 1 30 30 WA 88 RI Ac IL 00 -2 -2 .0 L- 17 SH ti OS 00 7 7 MA 16 ER ve EC 45 20 [...] # ET 10 05 91 GL 00 11 11 0 12 30 [...] 9- 9- 00 MA 24 ER ve MD 17 20 20 0 RT 4 N 80 10 10 RI HC 1 PH CH L AR AR ER MA D CY 50 # 0 MG 10 05 TA 91 BL ET TR 00 11 11 0 30 30 WA 70 RI Ac IC 07 -1 -1 .0 L- 95 SH ti OR 46 9 9 00 MA 24 ER ve 12 20 20 RT 6 14 39 10 10 RI 5 0 PH CH MG AR AR MA D TA CY BL # ET 10 05 91 FU 63 11 11 0 30 30 WA 70 RI Ac RO 30 -1 -1 .0 L- 95 SH ti SE 40 9 00 MA 24 ER ve MD 62 20 20 RT 7 DE 41 10 10 RI 0 PH CH 20 AR AR MA D MG CY # TA BL 10 ET 05 91 SI 68 11 11 0 30 30 WA 70 RI Ac MV 18 -1 -1 .0 L- 95 SH ti 00 9 00 MA 25 ER ve TA 48 20 20 RT 0 TI 10 10 10 RI N 2 PH CH 80 AR AR MA D MG CY # TA BL 10 ET 05 91 DE 37 11 11 0 30 30 WA 88 RI Ac IL 00 -1 -1 .0 L- 16 SH ti OS 00 9 9 00 MA 98 ER ve EC 45 20 20 RT 8 50 10 10 RI OT 4 PH CH C AR AR 20 MA D .6 CY # MG 10 TA 05 BL 91 ET LI 54 06 11 2 60 30 WA 70 RI Ac SI 45 -2 -1 .0 L- 75 SH ti NO 80 2- 8- 00 MA 63 ER ve DE 99 20 20 RT 8 IL 61 10 10 RI 0 PH CH 20 AR AR MA D MG CY # TA BL 10 ET 05 91 GA 53 09 11 1 90 30 WA 70 RI Ac BA 74 -2 -1 .0 L- 86 SH ti PE 60 0- 8- 00 MA 86 ER ve NT 10 20 20 RT 7 IN 10 10 10 RI 1 PH CH 10 AR AR 0 MA D MG CY # CA PS 10 UL [address] 63 10 10 3 30 30 WA 70 FA Ac AV 65 -1 -1 .0 L- 90 LL ti IX 31 9- 9- 00 MA 79 UJ ve 17 20 20 RT 0 I 75 10 10 10 NE 6 PH ZA MG AR R MA M TA CY BL # ET 10 05 91 LI 54 06 10 2 60 30 WA 70 RI Ac SI 45 -2 -1 .0 L- 75 SH ti NO 80 2- 6- 00 MA 63 ER ve DE 99 20 20 RT 8 IL 61 10 10 RI 0 PH CH 20 AR AR MA D MG CY # TA BL 10 ET 05 91 DE 37 10 10 0 30 30 WA 88 RI Ac IL 00 -1 -1 .0 L- 16 SH ti OS 00 6- 6- 00 MA 80 ER ve EC 45 20 20 RT 9 50 10 10 RI OT 4 PH CH C AR AR 20 MA D .6 CY # MG 10 TA 05 BL 91 ET GA 53 09 10 1 90 30 WA 70 RI Ac BA 74 -2 -1 .0 L- 86 SH ti PE 60 0- 6- 00 MA 86 ER ve NT 10 20 20 RT 7 IN 10 10 10 RI 1 PH CH 10 AR AR 0 MA D MG CY # CA PS 10 UL 05 E 91 SI 00 10 10 0 30 30 WA 70 RI Ac MV 09 -1 -1 .0 L- 90 SH ti 37 6- 6- 00 MA 46 ER ve TA 15 20 20 RT 6 TI 69 10 10 RI N 8 PH CH 80 AR AR MA D MG CY # TA BL 10 ET 05 91 FU 63 10 10 0 30 30 WA 70 RI Ac RO 30 -1 -1 .0 L- 90 SH ti SE 40 6- 6- 00 MA 46 ER ve MD 62 20 20 RT 7 DE 41 10 10 RI 0 PH CH 20 AR AR MA D MG CY # TA BL 10 ET 05 91 TR 00 10 10 0 30 30 [...] 6- 6- 00 MA 46 ER ve MD 17 20 20 0 RT 9 N 80 10 10 RI HC 1 PH CH L AR AR ER MA D CY 50 # 0 MG 10 05 TA 91 BL ET GL 00 10 10 0 12 30 WA 70 RI Ac YB 09 -1 -1 0. L- 90 SH ti UR 38 6- 6- 00 MA 47 ER ve ID 34 20 20 0 RT 1 E 40 10 10 RI 5 1 PH CH MG AR AR MA D TA CY BL # ET 10 05 91 GA 53 09 09 0 90 30 WA 70 RI Ac BA 74 -1 -1 .0 L- 86 SH ti PE 60 7- 7- 00 MA 60 ER ve NT 10 20 20 RT 9 IN 10 10 10 RI 1 PH CH 10 AR AR 0 MA D MG CY # CA PS 10 UL 05 E 91 00 09 09 0 30 30 WA 70 RI Ac 37 -1 -1 .0 L- 86 SH ti 80 6- 6- 00 MA 57 ER ve 20 20 20 RT 0 89 10 10 RI 3 PH CH AR AR MA D CY # 10 05 91 GL 00 09 09 0 12 30 WA 70 RI Ac YB 09 -1 -1 0. L- 86 SH ti UR 38 6- 6- 00 MA 57 ER ve ID 34 20 20 0 RT 1 E 40 10 10 RI 5 1 PH CH MG AR AR MA D TA CY BL # ET 10 05 91 SI 00 09 09 0 30 30 WA 70 RI Ac MV 09 -1 -1 .0 L- 86 SH ti 37 6- 6- 00 MA 57 ER ve TA 15 20 20 RT 2 TI 69 10 10 RI N 8 PH CH 80 AR AR MA D MG CY # TA BL 10 ET 05 91 DE 37 09 09 0 30 30 WA 88 RI Ac IL 00 -1 -1 .0 L- 16 SH ti OS 00 6- 6- 00 MA 64 ER ve EC 45 20 20 RT 5 50 10 10 RI OT 4 PH CH C AR AR 20 MA D .6 CY # MG 10 TA 05 BL 91 ET LI 54 07 09 2 30 30 WA 70 RI Ac SI 45 -2 -1 .0 L- 79 SH ti NO 80 0- 6- 00 MA 52 ER ve DE 99 20 20 RT 5 IL 61 10 10 RI 0 PH CH 20 AR AR MA D MG CY # TA BL 10 ET 05 91 ME 53 09 09 0 12 30 WA 70 RI Ac TF 74 -1 -1 0. L- 86 SH ti OR 60 6- 6- 00 MA 56 ER ve MD 17 20 20 0 RT 8 N 80 10 10 RI HC 1 PH CH L AR AR ER MA D CY 50 # 0 MG 10 05 TA 91 BL ET TR 00 09 09 0 30 30 WA 70 RI Ac IC 07 -1 -1 .0 L- 86 SH ti OR 46 6- 6- 00 MA 56 ER ve 12 20 20 RT 9 14 39 10 10 RI 5 0 PH CH MG AR AR MA D TA CY BL # ET [address] 63 06 09 3 [...] # ET 10 05 91 ME 53 06 08 2 12 30 WA 70 RI Ac TF 74 -2 -2 0. L- 75 SH ti OR 60 2- 0- 00 MA 64 ER ve MD 17 20 20 0 RT 4 N 80 10 10 RI HC 1 PH CH L AR AR ER MA D CY 50 # 0 MG 10 05 TA 91 BL ET LI 54 07 08 2 30 30 WA 70 RI Ac SI 45 -2 -2 .0 L- 79 SH ti NO 80 0- 0- 00 MA 52 ER ve DE 99 20 20 RT 5 [place] 61 10 10 RI 0 PH CH 20 AR AR MA D MG CY # TA BL 10 ET 05 91 DE 37 06 08 2 30 30 [place] 88 RI Ac [place] 00 -2 -2 .0 L- 16 SH ti OS 00 2- 0- 00 MA 18 ER ve EC 45 20 20 RT 2 50 10 10 RI OT 4 PH CH C AR AR 20 MA D .6 CY # MG 10 TA 05 BL 91 ET SI 00 06 08 2 30 30 WA 70 RI Ac MV 09 -2 -2 .0 L- 75 SH ti 37 2- 0- 00 MA 63 ER ve TA 15 20 20 RT 4 TI 69 10 10 RI N 8 PH CH 80 AR AR MA D MG CY # TA BL 10 ET 05 91 TR 00 06 08 2 [...] MA D CY # 10 05 91 GL 00 06 08 2 12 30 WA 70 RI Ac YB 09 -2 -2 0. L- 75 SH ti UR 38 2- 0- 00 MA 64 ER ve ID 34 20 20 0 RT 0 E 40 10 10 RI 5 1 PH CH MG AR AR MA D TA CY BL # ET 10 05 91 GA 53 06 08 2 90 30 WA 70 RI Ac BA 74 -2 -2 .0 L- 75 SH ti PE 60 2- 0- 00 MA 64 ER ve NT 10 20 20 RT 1 IN 10 10 10 RI 1 PH CH 10 AR AR 0 MA D MG CY # CA PS 10 UL 05 E 91 LI 54 07 07 2 30 30 WA 70 RI Ac SI 45 -2 -2 .0 L- 79 SH ti NO 80 0- 3- 00 MA 52 ER ve DE 99 20 20 RT 5 IL 61 10 10 RI 0 PH CH 20 AR AR MA D MG CY # TA BL 10 ET 05 91 LI 68 07 07 2 60 30 WA 70 RI Ac SI 18 -2 -2 .0 L- 79 SH ti NO 00 1- 1- 00 MA 21 ER ve DE 51 20 20 RT 5 IL 40 10 10 RI 1 PH CH 10 AR AR MA D MG CY # TA BL 10 ET 05 91 SI 00 06 07 2 30 30 WA 70 RI Ac MV 09 -2 -2 .0 L- 75 SH ti 37 2- 0- 00 MA 63 ER ve TA 15 20 20 RT 4 TI 69 10 10 RI N 8 PH CH 80 AR AR MA D MG CY # TA BL 10 ET 05 91 TR 00 06 07 2 30 30 WA 70 RI Ac IC 07 -2 -2 .0 L- 75 SH ti OR 46 2- 0- 00 MA 63 ER ve 12 20 20 RT 5 14 39 10 10 RI 5 0 PH CH MG AR AR MA D TA CY BL # ET 10 [address] 63 06 07 3 [...] MA D CY # 10 05 91 GL 00 06 07 2 12 30 [place] 70 RI Ac YB 09 -2 -2 0. L- 75 SH ti UR 38 2- 0- 00 MA 64 ER ve ID 34 20 20 0 RT 0 E 40 10 10 RI 5 1 PH CH MG AR AR MA D TA CY BL # ET 10 05 91 GA 53 06 07 2 90 30 WA 70 RI Ac BA 74 -2 -2 .0 L- 75 SH ti PE 60 2- 0- 00 MA 64 ER ve NT 10 20 20 RT 1 IN 10 10 10 RI 1 PH CH 10 AR AR 0 MA D MG CY # CA PS 10 UL 05 E 91 ME 53 06 07 2 12 30 WA 70 RI Ac TF 74 -2 -2 0. L- 75 SH ti OR 60 2- 0- 00 MA 64 ER ve MD 17 20 20 0 RT 4 N 80 10 10 RI HC 1 PH CH L AR AR ER MA D CY 50 # 0 MG 10 05 TA 91 BL ET DE 37 06 07 2 30 30 WA 88 RI Ac IL 00 -2 -2 .0 L- 16 SH ti OS 00 2- 0- 00 MA 18 ER ve EC 45 20 20 RT 2 50 10 10 RI OT 4 PH CH C AR AR 20 MA D .6 CY # MG 10 TA 05 BL 91 ET JA 00 06 06 2 30 30 WA 70 RI Ac NU 00 -2 -2 .0 L- 76 SH ti 60 9- 9- 00 MA 59 ER ve A 27 20 20 RT 7 10 73 10 10 RI 0 1 PH CH MG AR AR MA D TA CY BL # ET 10 05 91 GA 53 06 06 2 90 30 WA 70 RI Ac BA 74 -2 -2 .0 L- 75 SH ti PE 60 2- 2- 00 MA 64 ER ve NT 10 20 20 RT 1 IN 10 10 10 RI 1 PH CH 10 AR AR 0 MA D MG CY # CA PS 10 UL 05 E 91 ME 53 06 06 2 12 30 WA 70 RI Ac TF 74 -2 -2 0. L- 75 SH ti OR 60 2- 2- 00 MA 64 ER ve MD 17 20 20 0 RT 4 N 80 10 10 RI HC 1 PH CH L AR AR ER MA D CY 50 # 0 MG 10 05 TA 91 BL ET DE 37 06 06 2 30 30 WA 88 RI Ac IL 00 -2 -2 .0 L- 16 SH ti OS 00 2- 2- 00 MA 18 ER ve EC 45 20 20 RT 2 50 10 10 RI OT 4 PH CH C AR AR 20 MA D .6 CY # MG 10 TA 05 BL 91 ET SI 00 06 06 2 30 30 WA 70 RI Ac MV 09 -2 -2 .0 L- 75 SH ti 37 2- 2- 00 MA 63 ER ve TA 15 20 20 RT 4 TI 69 10 10 RI N 8 PH CH 80 AR AR MA D MG CY # TA BL 10 ET 05 91 TR 00 06 06 2 30 30 WA 70 RI Ac IC 07 -2 -2 .0 L- 75 SH ti OR 46 2- 2- 00 MA 63 ER ve 12 20 20 RT 5 14 39 10 10 RI 5 0 PH CH MG AR AR MA D TA CY BL # ET 10 05 91 00 06 06 2 30 30 WA 70 RI Ac 37 -2 -2 .0 L- 75 SH ti 80 2- 2- 00 MA 63 ER ve 20 20 20 RT 7 89 10 10 RI 3 PH CH AR AR MA D CY # 10 05 91 LI 54 06 06 2 60 30 WA 70 RI Ac SI 45 -2 -2 .0 L- 75 SH ti NO 80 2- 2- 00 MA 63 ER ve DE 99 20 20 RT 8 IL 61 10 10 RI 0 PH CH 20 AR AR MA D MG CY # TA BL 10 ET 05 91 GL 00 06 06 2 12 30 WA 70 RI Ac YB 09 -2 -2 0. L- 75 SH ti UR 38 2- 2- 00 MA 64 ER ve ID 34 20 20 0 RT 0 E 40 10 10 RI 5 1 PH CH MG AR AR MA D TA CY BL # ET [address] 63 06 06 3 30 30 WA 70 FA Ac AV 65 -2 -2 .0 L- 75 LL ti IX 31 1- 1- 00 MA 48 UJ ve 17 20 20 RT 8 I 75 10 10 10 NE 6 PH ZA MG AR R MA M TA CY BL # ET 10 05 91 DE 37 02 05 1 30 30 WA 88 RI Ac IL 00 -1 -1 .0 L- 15 SH ti OS 00 9- 8- 00 MA 53 ER ve EC 45 20 20 RT 3 50 10 10 RI OT 4 PH CH C AR AR 20 MA D .6 CY # MG 10 TA 05 BL 91 ET GL 68 02 05 1 12 30 [...] 8- 8- 00 MA 17 ER ve DE 99 20 20 RT 9 IL 71 10 10 RI 0 PH CH 10 AR AR MA D MG CY # TA BL 10 ET [address] 63 05 05 0 30 30 WA 70 RI Ac AV 65 -1 -1 .0 L- 71 SH ti IX 31 8- 8- 00 MA 18 ER ve 17 20 20 RT 0 75 10 10 10 RI 6 PH CH MG AR AR MA D TA CY BL # ET 10 05 91 TR 00 05 05 0 30 30 [...] 8- 8- 00 MA 18 ER ve MD 17 20 20 0 RT 8 N 80 10 10 RI HC 1 PH CH L AR AR ER MA D CY 50 # 0 MG 10 05 TA 91 BL ET 00 05 05 0 30 30 [...] CY # [address] 63 02 04 2 30 30 [...] 9- 0- 00 MA 11 ER ve MD 17 20 20 0 RT 0 N 80 10 10 RI HC 1 PH CH L AR AR ER MA D CY 50 # 0 MG 10 05 TA 91 BL ET GL 68 02 04 1 12 30 WA 70 RI Ac YB 64 -1 -2 0. L- 59 SH ti UR 50 9- 0- 00 MA 11 ER ve ID 21 20 20 0 RT 3 E 15 10 10 RI 5 4 PH CH MG AR AR MA D TA CY BL # ET 10 05 91 DE 37 02 04 1 30 30 WA 88 RI Ac IL 00 -1 -2 .0 L- 15 SH ti OS 00 9- 0- 00 MA 53 ER ve EC 45 20 20 RT 3 50 10 10 RI OT 4 PH CH C AR AR 20 MA D .6 CY # MG 10 TA 05 BL 91 ET LI 68 02 04 2 60 30 WA 70 RI Ac SI 18 -1 -2 .0 L- 59 SH ti NO 00 8- 0- 00 MA 00 ER ve DE 51 20 20 RT 4 IL 40 10 10 RI 1 PH CH 10 AR AR MA D MG CY # TA BL 10 ET 05 91 DE 37 12 03 3 30 30 WA 88 AL Ac IL 00 -0 -1 .0 L- 15 LR ti OS 00 1- 9- 00 MA 11 AN ve EC 45 20 20 RT 2 50 09 10 JR OT 4 PH C AR CH 20 MA AR .6 CY LE # S MG F 10 TA 05 BL 91 ET LI 54 02 03 2 60 30 WA 70 RI Ac SI 45 -1 -1 .0 L- 59 SH ti NO 80 8- 9- 00 MA 00 ER ve DE 99 20 20 RT 4 IL 71 10 10 RI 0 PH CH 10 AR AR MA D MG CY # TA BL 10 ET 05 91 TR 00 02 03 2 30 30 WA 70 RI Ac IC 07 -1 -1 .0 L- 59 SH ti OR 46 8- 9- 00 MA 00 ER ve 12 20 20 RT 6 14 39 10 10 RI 5 0 PH CH MG AR AR MA D TA CY BL # ET 10 05 91 00 02 03 2 30 30 WA 70 RI Ac 37 -1 -1 .0 L- 59 SH ti 80 8- 9- 00 MA 00 ER ve 20 20 20 RT 7 89 10 10 RI 3 PH CH AR AR MA D CY # [address] 63 02 03 2 30 30 WA 70 RI Ac AV 65 -1 -1 .0 L- 59 SH ti IX 31 8- 9- 00 MA 00 ER ve 17 20 20 RT 8 75 10 10 10 RI 6 PH CH MG AR AR MA D TA CY BL # ET 10 05 91 ME 53 02 03 1 12 30 WA 70 RI Ac TF 74 -1 -1 0. L- 59 SH ti OR 60 9- 9- 00 MA 11 ER ve MD 17 20 20 0 RT 0 N 80 10 10 RI HC 1 PH CH L AR AR ER MA D CY 50 # 0 MG 10 05 TA 91 BL ET GL 00 05 03 3 12 30 WA 70 MC Ac YB 09 -2 -1 0. L- 21 KE ti UR 38 6- 9- 00 MA 91 MD ve ID 34 20 20 0 RT 1 E E 40 09 10 JR 5 1 PH MG AR WI MA LL TA CY IA BL # M ET F 10 05 91 LI 54 02 02 00 60 30 WA 70 RI Ac SI 45 -1 -2 .0 L- 59 SH ti NO 80 8- 6- 00 MA 00 ER ve DE 99 20 20 RT 4 IL 71 10 10 RI 0 PH CH 10 AR AR MA D MG CY TA #5 BL 91 ET 00 02 02 00 30 30 [...] D TA CY BL ET #5 91 DE 37 12 02 02 30 30 WA 88 AL Ac IL 00 -0 -2 .0 L- 15 LR ti OS 00 1- 6- 00 MA 11 AN ve EC 45 20 20 RT 2 50 09 10 JR OT 4 PH C AR CH 20 MA AR .6 CY LE S MG #5 F 91 TA BL ET GL 00 05 02 02 12 30 WA 70 MC Ac YB 09 -2 -2 0. L- 21 KE ti UR 38 6- 6- 00 MA 91 MD ve ID 34 20 20 0 RT 1 E E 40 09 10 JR 5 1 PH MG AR WI MA LL TA CY IA BL M ET #5 F 91 ME 53 08 02 03 12 30 WA 70 BE Ac TF 74 -2 -2 0. L- 33 SS ti OR 60 1- 6- 00 MA 34 ON ve MD 17 20 20 0 RT 3 N [address] HC 1 PH EP L AR HE ER MA N CY A 50 0 #5 MG 91 TA BL ET ME 53 08 01 02 12 30 WA 70 BE Ac TF 74 -2 -2 0. L- 33 SS ti OR 60 1- 8- 00 MA 34 ON ve MD 17 20 20 0 RT 3 N [address] HC 1 PH EP L AR HE ER MA N CY A 50 0 #5 MG 91 TA BL ET LI 54 06 01 03 60 30 WA 70 BE Ac SI 45 -1 -1 .0 L- 24 SS ti NO 80 6- 4- 00 MA 93 ON ve DE 99 20 20 RT 0 [place] [address] 0 PH EP 10 AR HE MA N MG CY A TA #5 BL 91 ET DE 37 12 01 01 30 30 WA [...] HE MA N CY A #5 91 DE 37 12 12 00 30 30 WA 88 AL Ac IL 00 -0 -1 .0 L- 15 LR ti OS 00 1- 7- 00 MA 11 AN ve EC 45 20 20 RT 2 50 09 09 JR OT 4 PH C AR CH 20 MA AR .6 CY LE S MG #5 F 91 TA BL ET 52 11 12 00 1. 1 WA 70 AL Ac 26 -2 -0 00 L- 47 LR ti 80 7- 3- 0 MA 63 AN ve 52 20 20 RT 1 10 09 09 JR 1 PH AR CH MA AR CY LE S #[address] 63 08 12 03 30 30 [...] 6- 3- 00 MA 93 ON ve DE 99 20 20 RT 0 [place] [address] 0 PH EP 10 AR HE MA N MG CY A TA #5 BL 91 ET CI 55 11 12 00 20 10 WA 70 MC Ac DE 11 -2 -0 .0 L- 47 KE ti OF 10 7- 3- 00 MA 59 MD ve LO 12 20 20 RT 2 E XA 70 09 09 JR CI 1 PH N AR WI HC MA LL L CY IA 50 M 0 #5 F MG 91 TA B 68 08 11 01 12 30 WA 70 BE Ac 64 -2 -0 0. L- 33 SS ti 50 1- 5- 00 MA 34 ON ve 12 20 20 0 RT [address] 9 PH EP AR HE MA N CY A #5 91 00 04 11 02 30 30 WA [...] TA CY A BL ET #5 91 TR 00 10 11 01 [...] ST 6 PH EP MG AR HE MELINDA N TA CY A BL ET #5 91 GL 00 05 09 01 12 30 WA 70 MC Ac YB 09 -2 -2 0. L- 21 KE ti UR 38 6- 4- 00 MA 91 MD ve ID 34 20 20 0 RT 1 E E 40 09 09 JR 5 1 PH MG AR WI MA LL TA CY IA BL M ET #5 F 91 00 06 09 03 30 30 WA 70 BE Ac 37 -0 -1 .0 L- 22 SS ti 80 1- 0- 00 MA 83 ON ve 20 20 20 RT [address] 3 PH EP AR HE MELINDA N CY A #5 91 TR 00 05 09 03 30 [...] 09 ST 9 PH EP AR HE MELINDA N CY A #[address] 63 08 08 00 30 30 WA 70 BE Ac AV 65 -2 -2 .0 L- 33 SS ti IX 31 1- 7- 00 MA 34 ON ve 17 20 20 RT 4 [address] 6 PH EP MG AR HE MA N TA CY A BL ET #5 91 TR 00 05 08 02 30 30 WA 70 BE Ac IC 07 -1 -1 .0 L- 21 SS ti OR 46 9- 3- 00 MA 13 ON ve 12 20 20 RT 4 [address] 5 0 PH EP MG AR HE MA N TA CY A BL ET #5 91 LI 54 06 08 01 60 30 WA 70 BE Ac SI 45 -1 -1 .0 L- 24 SS ti NO 80 6- 3- 00 MA 93 ON ve DE 99 20 20 RT 0 IL 71 [...] N CY A #[address] 63 02 08 05 [...] 6- 2- 00 MA 93 ON ve DE 99 20 20 RT 0 IL 71 [...] HE MA N CY A #5 91 CY 00 06 06 00 30 36 WA 70 BE Ac AN 51 -0 -1 .0 0 L- 22 SS ti OC 70 1- 8- 00 MA 83 ON ve OB 13 20 20 RT 3 AL [address] AM 5 PH EP IN AR HE MA N 1, CY A 00 0 #5 MC 91 G/ ML GL 00 05 06 00 12 30 WA 70 MC Ac YB 09 -2 -0 0. L- 21 KE ti UR 38 6- 4- 00 MA 91 MD ve ID 34 20 20 0 RT 1 E E 40 09 09 JR 5 1 PH MG AR WI MA LL TA CY IA BL M ET #5 F 91 TR 00 05 06 00 30 30 WA 70 BE Ac IC 07 -1 -0 .0 L- 21 SS ti OR 46 9- 4- 00 MA 13 ON ve 12 20 20 RT 4 [address] 5 0 PH EP MG AR HE MA N TA CY A BL ET #[address] 63 02 06 03 30 30 WA 70 FA Ac AV 65 -2 -0 .0 L- 09 LL ti IX 31 6- 4- 00 MA 67 UJ ve 17 20 20 RT 9 I 75 10 09 09 NE 6 PH ZA MG AR R MA M TA CY BL ET #5 91 LI 68 01 05 03 60 30 WA 70 STONER Ac SI 18 -1 -2 .0 L- 04 RV ti NO 00 6- 1- 00 MA 20 EY ve DE 51 20 20 RT 2 IL 40 09 09 SIMIN 1 PH DI 10 AR MA MG CY TA #5 BL 91 ET GA 60 05 05 00 90 30 WA 70 BE Ac BA 50 -0 -2 .0 L- 19 SS ti PE 50 5- 1- 00 MA 25 ON ve NT 11 20 20 RT 0 IN [address] 1 PH EP 30 AR HE 0 MA N MG CY A CA #5 PS 91 UL E 68 05 05 00 12 30 WA [...] TA #5 BL 91 ET 00 04 05 01 30 30 WA 70 BE Ac 37 -0 -2 .0 L- 14 SS ti 80 1- 1- 00 MA 66 ON ve 20 20 20 RT [address] 3 PH EP AR HE MA N CY A #[address] 63 02 05 02 30 30 [...] TA CY BL ET #5 91 00 04 04 00 30 30 WA 70 BE Ac 37 -0 -0 .0 L- 14 SS ti 80 1- 9- 00 MA 66 ON ve 20 20 20 RT [address] 3 PH EP AR HE MA N CY A #5 91 68 03 04 00 60 30 WA 70 MC Ac 64 -3 -0 .0 L- 14 KE ti 50 0- 9- 00 MA 32 MD ve 12 20 20 RT 7 E 05 09 09 JR 9 PH AR WI MA LL CY IA M #5 F 91 SI 00 01 03 01 30 30 WA 70 STONER Ac MV 09 -1 -2 .0 L- 04 RV ti 37 5- 6- 00 MA 07 EY ve TA 15 20 20 RT 3 TI 59 09 09 SIMIN N 8 PH DI 40 AR MA MG CY TA #5 BL 91 ET GL 00 11 03 03 12 30 WA 69 STONER Ac YB 09 -1 -2 0. L- 95 RV ti UR 38 2- 6- 00 MA 18 EY ve ID 34 20 20 0 RT 1 E 40 08 09 SIMIN 5 1 PH DI MG AR MA TA CY BL ET #5 91 LI 54 01 03 02 60 30 WA 70 STONER Ac SI 45 -1 -2 .0 L- 04 RV ti NO 80 6- 6- 00 MA 20 EY ve DE 99 20 20 RT 2 IL 71 [...] 1- 6- 00 MA 67 UJ ve MD 20 20 20 RT 9 I DE [...] MA TA CY BL ET #5 91 68 11 02 03 60 30 WA [...] 6- 6- 00 MA 20 EY ve DE 99 20 20 RT 2 IL 71 09 09 SIMIN 0 PH DI 10 AR MA MG CY TA #5 BL 91 ET ME 60 11 01 02 60 30 WA 69 STONER Ac TF 50 -1 -3 .0 L- 95 RV ti OR 50 2- 0- 00 MA 17 EY ve MD 26 20 20 RT 9 N 00 08 09 SIMIN HC 2 PH DI L AR ER MA CY 50 0 #5 MG 91 TA BL ET SI 00 01 01 00 30 30 WA 70 STONER Ac MV 09 -1 -3 .0 L- 04 RV ti 37 5- 0- 00 MA 07 EY ve TA 15 20 20 RT 3 TI 59 09 09 SIMIN N 8 PH DI 40 AR MA MG CY TA #5 BL 91 ET LI 54 01 01 00 60 30 WA 70 STONER Ac SI 45 -1 -3 .0 L- 04 RV ti NO 80 6- 0- 00 MA 20 EY ve DE 99 20 20 RT 2 IL 71 [...] BL ET #5 91 GL 00 11 01 01 12 30 WA 69 STONER Ac YB 09 -1 -3 0. L- 95 RV ti UR 38 2- 0- 00 MA 18 EY ve ID 34 20 20 0 RT 1 E 40 08 09 SIMIN 5 1 PH DI MG AR MA TA CY BL ET #5 91 00 11 01 01 90 30 WA [...] 2- 1- 00 MA 17 EY ve MD 26 20 20 RT 9 N 00 [...] CY BL ET #5 91 SI 00 11 11 00 [...] 2- 0- 00 MA 18 EY ve DE 51 20 20 RT 4 IL 40 [...] 2- 0- 00 MA 17 EY ve MD 26 20 20 RT 9 N 00 08 08 SIMIN HC 2 PH DI L AR ER MA CY 50 0 #5 MG 91 TA BL ET 00 11 11 00 90 30 WA [...] AR MA CY #5 91 TR 00 10 11 00 30 30 [...] 1- 3- 00 MA 97 EY ve MD 26 20 20 RT 6 N 00 08 08 SIMIN HC 2 PH DI L AR ER MA CY 50 0 #5 MG 91 TA BL ET GL 00 05 10 01 12 30 [...] MA TA CY BL ET #5 91 AC 64 09 10 00 30 30 WA 69 STONER Ac TO 76 -2 -0 .0 L- 88 RV ti S 40 6- 9- 00 MA 95 EY ve 30 30 20 20 RT 3 11 08 08 SIMIN MG 4 PH DI AR TA MA BL CY ET #5 91 ME 60 07 09 02 60 30 WA 69 STONER Ac TF 50 -0 -2 .0 L- 77 RV ti OR 50 1- 6- 00 MA 97 EY ve MD 26 20 20 RT 6 N 00 08 08 SIMIN HC 2 PH DI L AR ER MA CY 50 0 #5 MG 91 TA BL ET 00 05 09 03 90 30 WA 69 STONER Ac 09 -0 -2 .0 L- 70 RV ti 31 5- 6- 00 MA 66 EY ve 03 20 20 RT 5 80 08 08 SIMIN 1 PH DI AR MA CY #5 91 SI 00 08 08 00 30 30 [...] MA TA CY BL ET #5 91 AC 64 05 08 02 30 30 [...] AR MA CY #5 91 SI 00 05 08 02 30 30 WA 69 STONER Ac MV 09 -1 -1 .0 L- 71 RV ti 37 2- 4- 00 MA 63 EY ve TA 15 20 20 RT 0 TI 59 08 08 SIMIN N 8 PH DI 40 AR MA MG CY TA #5 BL 91 ET ME 60 07 08 01 60 30 WA 69 STONER Ac TF 50 -0 -1 .0 L- 77 RV ti OR 50 1- 4- 00 MA 97 EY ve MD 26 20 20 RT 6 N 00 08 08 SIMIN HC 2 PH DI L AR ER MA CY 50 0 #5 MG 91 TA BL ET TR 00 07 08 00 30 30 [...] 1- 7- 00 MA 97 EY ve MD 26 20 20 RT 6 N 00 08 08 SIMIN HC 2 PH DI L AR ER MA CY 50 0 #5 MG 91 TA BL ET LI 54 05 07 02 30 30 [place] 69 STONER Ac SI 45 -0 -1 .0 L- 70 RV ti NO 80 5- 7- 00 MA 66 EY ve DE 99 20 20 RT 6 IL 71 08 08 SIMIN 0 PH DI 10 AR MA MG CY TA #5 BL 91 ET AC 00 07 07 00 20 5 WA 44 No Ac ET 09 -0 -1 .0 L- 69 t ti AM 30 1- 7- 00 MA 25 Av ve IN 15 20 20 RT 2 ai OP 01 08 08 la HE 0 PH bl N- AR e CO MA D CY #3 #5 TA 91 BL ET AM 00 07 07 00 30 10 WA 69 No Ac OX 78 -0 -1 .0 L- 78 t ti IC 12 1- 7- 00 MA 01 Av ve IL 61 20 20 RT 6 ai LI 33 08 08 la N 1 PH bl 50 AR e 0 MA MG CY CA #5 PS 91 UL E SI 00 05 07 01 30 30 WA 69 STONER Ac MV 09 -1 -0 .0 L- 71 RV ti 37 2- 3- 00 MA 63 EY ve TA 15 20 20 RT 0 TI 59 08 08 SIMIN N 8 PH DI 40 AR MA MG CY TA #5 BL 91 ET AC 64 05 07 01 30 30 WA 69 STONER Ac TO 76 -1 -0 .0 L- 71 RV ti S 40 2- 3- 00 MA 61 EY ve 30 30 20 20 RT 4 11 08 08 SIMIN MG 4 PH DI AR TA MA BL CY ET #5 91 ME 60 03 06 03 60 30 WA 69 STONER Ac TF 50 -0 -1 .0 L- 63 RV ti OR 50 7- 2- 00 MA 30 EY ve MD 26 20 20 RT 0 N 00 [...] BL ET #5 91 TR 00 03 06 03 30 30 [...] DI AR MA CY #5 91 LI 68 05 06 01 30 30 WA 69 STONER Ac SI 18 -0 -1 .0 L- 70 RV ti NO 00 5- 2- 00 MA 66 EY ve DE 51 20 20 RT 6 IL 40 08 08 SIMIN 1 PH DI 10 AR MA MG CY TA #5 BL 91 ET AC 00 05 06 00 20 5 WA 44 No Ac ET 09 -2 -0 .0 L- 68 t ti AM 30 2- 5- 00 MA 36 Av ve IN 15 20 20 RT 1 ai OP 01 08 08 la HE 0 PH bl N- AR e CO MA D CY #3 #5 TA 91 BL ET PE 00 05 06 00 40 10 WA 69 No Ac NI 78 -2 -0 .0 L- 72 t ti CI 11 2- 5- 00 MA 95 Av ve LL 65 20 20 RT 5 ai IN 50 08 08 la 1 PH bl VK AR e MA 50 CY 0 MG #5 91 TA BL ET 00 05 05 00 90 30 WA [...] MA CY #5 91 TR 00 03 05 02 30 30 WA 69 No Ac IC 07 -0 -2 .0 L- 63 t ti OR 46 7- 2- 00 MA 29 Av ve 12 20 20 RT 8 ai 14 39 08 08 la 5 0 PH bl MG AR e MA TA CY BL ET #5 91 LI 68 05 05 00 30 30 WA 69 No Ac SI 18 -0 -2 .0 L- 70 t ti NO 00 5- 2- 00 MA 66 Av ve DE 51 20 20 RT 6 ai IL 40 08 08 la 1 PH bl 10 AR e MA MG CY TA #5 BL 91 ET SI 00 05 05 00 30 30 WA 69 STONER Ac MV 09 -1 -2 .0 L- 71 RV ti 37 2- 2- 00 MA 63 EY ve TA 15 20 20 RT 0 TI 59 08 08 SIMIN N 8 PH DI 40 AR MA MG CY TA #5 BL 91 ET AC 64 05 05 00 30 30 WA 69 STONER Ac TO 76 -1 -2 .0 L- 71 RV ti S 40 2- 2- 00 MA 61 EY ve 30 30 20 20 RT 4 11 08 08 SIMIN MG 4 PH DI AR TA MA BL CY ET #5 91 TR 00 03 04 01 [...] BL ET #5 91 00 03 04 01 60 30 WA [...] MA CY #5 91 GL 00 12 03 02 12 30 WA 69 No Ac YB 09 -1 -2 0. L- 51 t ti UR 39 0- 6- 00 MA 84 Av ve ID 36 20 20 0 RT 9 ai E 40 07 08 la 5 1 PH bl MG AR e MA TA CY BL ET #5 91 TR 00 09 03 05 [...] MA CY #5 91 GL 00 12 03 01 [...] RV FREE 0.5 ML FOR IM USE PCV1 12- 133 CLARA No A C 3 1-20 S WRIG VACC 14 MICHELLE HT INE MD FOR PSC INTR AMUS CULA R USE IIV3 12- 141 CLARA No A C 1-20 S WRIG VACC 14 MICHELLE HT INE MD SPLI PSC T VIRU S 0.5 ML DOSA GE IM USE IIV3 10-2 141 CLARA No CLARA 4-20 S S VACC 13 MICHELLE INE SPLI T VIRU MICHELLE S 0.5 ML DOSA GE IM USE Procedures Procedure DOS Code Location Performer Comment [...] #591 #591 HOME BLD GLU MON-50 CATARACT 68710 [facility]AL [facility] CATARACT 09813 [facility]AL 6 [facility] BLD GLU A4253 [facility] TEST/REAG 6 PHARMACY PHARMACY T STRIPS #591 #591 HOME BLD GLU 50 RADIOLOGI 57909 LEIGHA LIMA ALL C EXAM 6 MEDICAL CHEST 2 IMAGING VIEWS [place] FRONTAL&[place] [address] [facility] THERAPY/P INC INC ROPHYLAXI S /DX 1ST TO 1 HR THERAPEUT 04191 [facility] IC [facility] INJECTION [place] [address] [facility] HEAD/BRAI 6 [facility] N W/O INC INC CONTRAST MATERIAL CREATINE 16204 [facility] KINASE 6 [facility] TOTAL INC INC ECG 47963 [facility] ROUTINE 6 [facility] ECG INC INC W/LEAST 12 LDS TRCG ONLY W/O I&R FINAL G9638 LEIGHA LIMA ALL REPORTS 6 MEDICAL W/O DOC IMAGING 1/MORE ASS DOSE REDUCTION TECH COLLECTIO 79119 [facility] N VENOUS 6 [facility] BLOOD INC INC VENIPUNCT URE COMPREHEN 07494 [facility] SIVE 6 [facility] METABOLIC INC INC PANEL CREATINE 57994 [facility] KINASE MB 6 [facility] [place] [address] [facility] LACTATE 6 [place] [address] [facility] TROPONIN 6 [facility] QUANTITAT INC INC LYNN BLOOD 98915 [facility] COUNT 6 [facility] COMPLETE INC INC AUTO&AUTO DIFRNTL WBC ECG 45067 [facility] ROUTINE 6 [facility] W/LEAST P 12 LDS I&R ONLY LIPID 13126 A C JOSE G MICHELLE PANEL 6 JORDANA PORTILLO PSC HEMOGLOBI 39718 A Alexa MARTINEZ N 6 JORDANA PORTILLO GLYCOSYLA PSC BRAN A1C IIV4 VACC 00857 A Alexa MARTINEZ PRESRV 5 JORDANA PORTILLO FREE 0.5 PSC ML FOR IM USE IM ADM 84436 A Alexa MARTINEZ PRQ ID 5 JORDANA PORTILLO SUBQ/IM PSC NJXS 1 VACCINE DIRECT G0154 NURSES NURSES SKILL 5 REGISTRY REGISTRY NUR[facility] HH/HOSPIC E EA 15 MIN DIRECT G0154 NURSES NURSES SKILL 5 REGISTRY REGISTRY NURSE & [facility] HH/HOSPIC E EA 15 MIN GLUCOSE 38279 A Alexa MARTINEZ QUANTITAT 5 JORDANA PORTILLO LYNN BLOOD PSC XCPT REAGENT STRIP STERILE A4217 NURSES NURSES WATER/ERICH 5 REGISTRY REGISTRY INE 500 & HOME HE & HOME HE ML GAUZE A6402 NURSES NURSES NON-IMPRE 5 REGISTRY REGISTRY G STERL & HOME HE & HOME HE 16 SQ/< W/O ADHES BORDR INCISION 15236 ISRAEL MCKEE & 5 PHYSICIAN U [facility] PILONIDAL CYST SIMPLE EXC B9 90586 A Alexa MARTINEZ LESION 5 JORDANA PORTILLO MRGN XCP PSC SK TG T/A/L 0.6-1[place] [address] [facility] SURG 5 DIAGNOSTI DIAGNOSTI PATHOLOGY [facility] ROSCOPIC EXAM HEMOGLOBI 37752 A Alexa MARTINEZ N 5 JORDANA PORTILLO GLYCOSYLA PSC BRAN A1C GLUCOSE 69628 A Alexa MARTINEZ QUANTITAT 5 JORDANA PORTILLO LYNN BLOOD PSC XCPT REAGENT STRIP GASTRIC 60979 [place] [facility] EMPTYING 5 MEDICAL MARGARITA IMAGING IMAGING STUDY ASS TECHNETIU A9541 [facility] TC-99M 5 [facility] SULFUR INC INC COLLOID DX UP TO 20 MCI HEMOGLOBI 91015 A Alexa MARTINEZ N 5 JORDANA PORTILLO GLYCOSYLA PSC BRAN A1C COLLECTIO 52306 [facility] Pickens VENOUS 5 [facility] BLOOD INC INC VENIPUNCT URE BLOOD 95658 [facility] COUNT 5 [facility] COMPLETE INC INC AUTO&AUTO DIFRNTL WBC FLUORESCE 73069 [facility] NT 5 [facility] NONNFCT INC INC [place] [address] [facility] GAMMAGLOB 5 [facility] ULIN IGA [place] [address] [facility] FERRITIN 5 [facility] INC INC IRON 78008 [facility] BINDING 5 [facility] CAPACITY INC INC COMPREHEN 90037 [facility] SIVE 5 [facility] [place] [address] [facility] IRON 5 [facility] [place] [address] LEIGHA MORENOUTCHER ABDOMINAL 5 MEDICAL MARGARITA REAL IMAGING TIME ASS W/IMAGE LIMITED ADJT TIS 41512 [facility] TRNS/REAR 5 [facility] GMT INC INC F/C/C/M/N /A/G/H/F 10SQCM/< [place] [address] P&[facility] LABS, PICKLESIM SURG 5 LLC ER JR АЛЕКСАНДР PATHOLOGY GROSS&NELSON ROSCOPIC EXAM GLUC BLD 87815 [facility] GLUC MNTR 5 [facility] DEV INC INC CLEARED FDA SPEC HOME USE ANES 30209 COMMUNITY FAJARDO HECTOR INTEG 5 ANESTH MUSC & OF THE NRV HEAD BLUE NECK&POST ERIOR TRUNK ECG 24068 [facility] JR ROUTINE 5 [facility] W/LEAST P 12 LDS I&R ONLY ECG 48478 [facility] ROUTINE 5 [facility] ECG INC INC W/LEAST 12 LDS TRCG ONLY W/O I&R COLLECTIO 87548 [facility] N VENOUS 5 [facility] BLOOD INC INC VENIPUNCT URE BLOOD 00289 [facility] COUNT 5 [facility] COMPLETE INC INC AUTO&[place] [address] LEIGHA MAYORGACHER ABDOMEN & 5 MEDICAL MARGARITA PELVIS IMAGING W/O ASS CONTRAST MATERIAL CREATININ 56814 [facility] E BLOOD 5 [place] [address] [facility] JOHNSOTN UREA 5 [facility] NITROGEN INC INC QUANTITAT LYNN COLLECTIO 48640 [facility] N VENOUS 5 [facility] BLOOD INC INC VENIPUNCT URE GLUC BLD 84145 [facility] GLUC MNTR 5 [facility] DEV INC INC [place] [address] [facility], [place] NELSON SURG 5 [facility] PATHOLOGY GROSS&NELSON ROSCOPIC EXAM ANES 24354 [facility] ANESTH SHE INTESTINE OF THE BLUE ENDOSCOPY DISTAL DUODENUM COLSC FLX [address] [facility] AMILCAR GILBERT W/RMVL 5 PHYSICIAN LUL OF TUMOR S GROUP POLYP LESION SNARE TQ GLUCOSE 69305 A Alexa MARTINEZ QUANTITAT 4 JORDANA PORTILLO LYNN BLOOD PSC XCPT REAGENT STRIP HEMOGLOBI 38757 A Alexa MARTINEZ N 4 JORDANA PORTILLO GLYCOSYLA PSC BRAN A1C IIV3 59507 A Alexa ARAIZA MICHELLE VACCINE 4 JORDANA PORTILLO SPLIT PSC VIRUS 0.5 ML DOSAGE IM USE PCV13 41787 A Alexa MARTINEZ VACCINE 4 JORDANA PORTILLO FOR PSC INTRAMUSC ULAR USE RADIOLOGI 45630 [facility] EXAM 4 MEDICAL MARGARITA CHEST 2 IMAGING VIEWS ASS FRONTAL&L ATERAL ECHO 50114 [facility] TTHRC R-T 4 [facility] 2D INC INC W/WOM-MOD E COMPL SPEC&COLR D HEMOGLOBI 39836 A Alexa MARTINEZ N 4 JORDANA PORTILLO GLYCOSYLA PSC BRAN A1C LIPID 93881 A Alexa ARAIZA MICHELLE PANEL 4 JORDANA PORTILLO PSC ALBUMIN 20389 A Alexa MARTINEZ URINE 4 JORDANA PORTILLO MICROALBU PSC MIN SEMIQUANT ITATIVE COMPREHEN 68827 [facility] QUEST SIVE 4 DIAGNOSTI DIAGNOSTI METABOLIC CS CS PANEL HEMOGLOBI 38247 JOSE G ARCHULETA MICHELLE N 4 GLYCOSYLA BRAN A1C RADIOLOGI 10235 [facility] MARGARITA MARGARITA EXAMINATI ON CHEST SINGLE VIEW FRONTAL HEMOGLOBI 25827 JOSE G JOHNSTONES MICHELLE N 4 GLYCOSYLA BRAN A1C IIV3 58081 JOSE G ARCHULETA MICHELLE VACCINE 3 SPLIT VIRUS 0.5 ML DOSAGE IM USE IM ADM 15118 JOSE G ARCHULETA MICHELLE PRQ ID 3 SUBQ/IM NJXS 1 VACCINE ALBUMIN 31390 A Alexa ARAIZA MICHELLE URINE 3 JORDANA PORTILLO MICROALBU PSC MIN SEMIQUANT ITATIVE COLLECTIO 70200 A Alexa ARAIZA MICHELLE N VENOUS 3 JORDANA PORTILLO BLOOD PSC VENIPUNCT URE GLUCOSE 48956 A Alexa MARTINEZ QUANTITAT 3 JORDANA PORTILLO LYNN BLOOD PSC XCPT REAGENT STRIP HEMOGLOBI 50628 A Alexa MARTINEZ N 3 JORDANA PORTILLO GLYCOSYLA PSC BRAN A1C LIPID 94556 A Alexa ARAIZA MICHELLE PANEL [address] [place] [address] RIN RIN ABDOMEN & 3 MARGARITA MARGARITA PELVIS W/O CONTRAST MATERIAL BASIC 88306 [facility] METABOLIC 3 [facility] PANEL INC INC CALCIUM TOTAL BASIC 20407 [facility] METABOLIC 3 [facility] PANEL INC INC CALCIUM TOTAL LOCM Q9966 [facility] [phone] 3 [facility] MG/ML INC INC IODINE CONCENTRA TION PER ML CATHETER C1724 [facility] TRANSLUMI 3 [facility] NAL INC INC ATHERECTO MY ROTATIONA L COAGULATI 74238 [facility] ON TIME 3 [facility] ACTIVATED INC INC GUIDE C1769 [facility] WIRE 3 [facility] INC INC INJECTION J1644 [facility] HEPARIN 3 [facility] SODIUM INC INC PER 1000 UNITS ECG 03432 NICHOLAS PETERSON JR ROUTINE 3 DWI DWI ECG W/LEAST 12 LDS I&R ONLY REVSC 91597 [facility] OPN/PRQ 3 [facility] FEM/POP INC INC W/ATHRC/A NGIOP SM VSL CLOSURE C1760 [facility] DEVICE 3 [facility] VASCULAR INC INC CATHETER C1887 [facility] GUIDING 3 [facility] INC INC INTRDUCR/ C1894 [facility] SHEATH 3 [facility] NOT GUID INC INC INTRACARD EP NON-LASR CATHETER C1725 [facility] TRANSLUMI 3 [facility] NAL INC INC ANGIOPLAS TY NON-LASER REVASCULA 25936 [facility] RIZATION 3 [facility] ILIAC INC INC ARTERY ANGIOP 1ST VSL INTRDUCR/ C1766 [facility]OS[facility] SHEATH 3 [facility] GUID INC INC INTRACARD EP NOT PEEL-AWAY BLOOD 27012 [facility] COUNT 3 [facility] COMPLETE INC INC AUTO&AUTO DIFRNTL WBC COMPREHEN 76348 [facility] SIVE 3 [facility] METABOLIC INC INC PANEL THROMBOPL 99813 [facility] ASTIN 3 [facility] TIME INC INC PARTIAL PLASMA/WH OLE BLOOD PROTHROMB 41380 [facility] IN TIME 3 [facility] INC INC LIPID 76936 A Alexa ARAIZA MICHELLE PANEL 3 JORDANA PORTILLO PSC HEMOGLOBI 35108 A Alexa ARAIZA MICHELLE N 3 JORDANA PORTILLO GLYCOSYLA PSC BRAN A1C COLLECTIO 68900 A Alexa MARTINEZ N VENOUS 3 JORDANA PORTILLO BLOOD PSC VENIPUNCT URE BASIC 56480 [facility] METABOLIC 3 [facility] PANEL INC INC CALCIUM TOTAL STENT C1876 [facility] NON-COATE 3 [facility] D/NON-COV INC INC ERED W/DELIVER Y SYSTEM LOCM Q9966 [facility] 200-299 3 [facility] MG/ML INC INC IODINE CONCENTRA TION PER ML COAGULATI 40522 [facility] ON TIME 3 [facility] ACTIVATED INC INC GLUC BLD 81598 [facility] GLUC MNTR 3 [facility] DEV INC INC CLEARED FDA SPEC HOME USE CATHETER C1725 [facility] TRANSLUMI 3 [facility] NAL INC INC ANGIOPLAS TY NON-LASER INJECTION J1644 [facility] HEPARIN 3 [facility] SODIUM INC INC PER 1000 UNITS INTRDUCR/ C1766 [facility] SHEATH 3 [facility] GUID INC INC INTRACARD EP NOT PEEL-AWAY GUIDE C1769 [facility] WIRE 3 [facility] INC INC INTRDUCR/ C1894 [facility] SHEATH 3 [facility] NOT GUID INC INC INTRACARD EP NON-LASR CATHETER C1887 [facility] GUIDING 3 [facility] INC INC REVSC 22170 [facility] OPN/PRQ 3 [facility] FEM/POP INC INC W/STNT/AT HRC/ANGIO P SM VSL ECG 46966 PAULY COATS ROUTINE 3 MICHELLE MICHELLE ECG W/LEAST 12 LDS I&R ONLY CLOSURE C1760 [facility] DEVICE 3 [facility] VASCULAR INC INC BLOOD 17726 [facility] COUNT 3 [facility] COMPLETE INC INC AUTO&AUTO DIFRNTL WBC COMPREHEN 08938 [facility] SIVE 3 [facility] METABOLIC INC INC PANEL PROTHROMB 36255 [facility] IN TIME 3 [facility] INC INC NON-INVAS 44093 [facility] LYNN 3 [facility] PHYSIOLOG INC INC IC STUDY EXTREMITY 3 LEVLS LIPID 84374 JOSE G ARCHULETA MICHELLE PANEL 3 HEMOGLOBI 55953 JOSE G ARCHULETA MICHELLE N 3 GLYCOSYLA BRAN A1C IM ADM 54491 JOSE G ARCHULETA MICHELLE PRQ ID 2 SUBQ/IM NJXS 1 VACCINE BASIC 73063 [facility] METABOLIC 2 DIAGNOSTI DIAGNOSTI PANEL CS CS CALCIUM TOTAL BASIC 96470 [facility] METABOLIC 2 DIAGNOSTI DIAGNOSTI PANEL CS CS CALCIUM TOTAL ALBUMIN 35477 JOSE G ARCHULETA MICHELLE URINE 2 MICROALBU MIN QUANTIATI VE TRANSFERA 62361 JOSE G ARCHULETA MICHELLE SE 2 ASPARTATE AMINO AST SGOT TRANSFERA 25797 JOSE G ARCHULETA MICHELLE SE 2 ALANINE AMINO ALT SGPT HEMOGLOBI 67183 JOSE G ARCHULETA MICHELLE N 2 GLYCOSYLA BRAN A1C LIPID 25957 JOSE G ARCHULETA MICHELLE PANEL 2 LIPID 37400 SAMIRA SAMIRA PANEL 2 ROSANNA ROSANNA GLUCOSE 13167 SAMIRA SAMIRA QUANTITAT 2 ROSANNA ROSANNA LYNN BLOOD XCPT REAGENT STRIP TRANSFERA 65870 SAMIRA SAMIRA SE 2 ROSANNA ROSANNA ASPARTATE AMINO AST SGOT HEMOGLOBI 92964 SAMIRA SAMIRA N 2 ROSANNA ROSANNA [place] [address] [facility] PROSTATE 2 DIAGNOSTI DIAGNOSTI SPECIFIC CS CS ANTIGEN TOTAL BASIC 74884 [facility] METABOLIC 2 DIAGNOSTI DIAGNOSTI PANEL CS CS CALCIUM TOTAL BASIC 51451 [facility]ST METABOLIC 2 DIAGNOSTI DIAGNOSTI PANEL CS CS CALCIUM TOTAL HEMOGLOBI 41857 [facility] QUEST N 2 DIAGNOSTI DIAGNOSTI GLYCOSYLA CS CS BRAN A1C TRANSFERA 43621 QUEST QUEST SE 2 DIAGNOSTI DIAGNOSTI ASPARTATE CS CS AMINO AST SGOT LIPID 75127 [facility]ST PANEL 2 DIAGNOSTI DIAGNOSTI CS CS COLLECTIO 45859 SAMIRA SAMIRA N VENOUS 2 ROSANNA ROSANNA BLOOD VENIPUNCT URE LIPID 81008 [facility]ST PANEL 1 DIAGNOSTI DIAGNOSTI CS CS TRANSFERA 40283 [facility]ST SE 1 DIAGNOSTI DIAGNOSTI ASPARTATE CS CS AMINO AST SGOT HEMOGLOBI 54602 A C A C N 1 JORDANA SILVEIRA MD GLYCOSYLA PSC PSC BRAN A1C BASIC 72488 [facility] METABOLIC 1 DIAGNOSTI DIAGNOSTI PANEL CS CS CALCIUM TOTAL BASIC 46971 [facility] METABOLIC 1 DIAGNOSTI DIAGNOSTI PANEL CS CS CALCIUM TOTAL HEMOGLOBI 64270 A C SAMIRA N 1 JORDANA PORTILLO ROSANNA GLYCOSYLA PSC BRAN A1C TRANSFERA 26084 [facility] SE 1 DIAGNOSTI DIAGNOSTI ASPARTATE CS CS AMINO AST SGOT LIPID 13356 [facility] QUEST PANEL 1 DIAGNOSTI DIAGNOSTI CS CS 3D 81177 [place] RNI RENDERING 1 MEDICAL MARGARITA IMAGING W/INTERP& ASS POSTPROC DI[place] [id number] [place] [address] ABDOMEN & 1 MEDICAL MARGARITA PELVIS IMAGING [place] [address] [facility] LIPASE 1 [facility] INC INC CYANOCOBA 54640 [facility] LUBNA 1 [facility] VITAMIN INC INC B-[address] [place] [address] [facility] FERRITIN 1 [facility] INC INC IRON 54704 [facility] BINDING 1 [facility] [place] [address] [facility] AMYLASE 1 [place] [address] [facility] FOLIC 1 [facility] [place] [address] [facility] IRON 1 [facility] INC INC COMPREHEN 85282 [facility] SIVE 1 [facility] METABOLIC INC INC PANEL BLOOD 97275 [facility] COUNT 1 [facility] COMPLETE INC INC AUTO&AUTO DIFRNTL WBC FLUORESCE 61491 [facility] NT 1 [facility] NONNFCT INC INC AGT ANTB TITER EA ANTIBODY CV STRS 63899 [facility] FALLUJI TST 1 PHYSICIAN JULIETH XERS&/OR S GROUP RX CONT ECG W/O I&R CV STRS 72962 [facility] TST 1 [facility] XERS&/OR INC INC RX CONT ECG TRCG ONLY MYOCARDIA 79978 [facility] L SPECT 1 [facility] MULTIPLE INC INC STUDIES ALBUMIN 65647 Janelle HOGAN URINE 1 JORDANA MARTE MICROALBU [facility] MIN SEMIQUANT ITATIVE BASIC 85506 [facility] METABOLIC 1 [facility] PANEL CALCIUM TOTAL HEMOGLOBI 11676 Janelle HOGAN N 1 JORDANA MARTE GLYCOSYLA PSC BRAN A1C TRANSFERA 70214 [facility] SE 1 [facility] [place] [address] [facility] PROSTATE 1 [facility] SPECIFIC ANTIGEN TOTAL LIPID 56096 [facility] PANEL 1 [facility] RADEX 53922 [place] SPINE 1 [facility] LUMBOSACR CLINIC AL 2/3 PSC VIEWS RADEX 91407 [place] RIN SPINE 1 MEDICAL [facility]ITA LUMBOSACR IMAGING AL 2/3 ASS VIEWS MRI 23032 [place] R[place] SPINAL 0 MEDICAL [facility] CANAL IMAGING LUMBAR ASS W/O CONTRAST MATERIAL HEMOGLOBI 88816 [facility] N 0 [facility] GLYCOSYLA BRAN A1C LIPID 00598 [facility] PANEL 0 [facility] TRANSFERA 19273 [facility] SE 0 [facility] ASPARTATE AMINO AST SGOT BASIC 12827 [facility] METABOLIC 0 [facility] PANEL CALCIUM TOTAL LANCETS A4259 M E D M E [...] SUPPLIES T STRIPS HOME BLD GLU MON-50 TRANSFERA 95830 [facility] SE 0 [facility] ASPARTATE AMINO AST SGOT BASIC 46557 [facility] METABOLIC 0 [facility] PANEL CALCIUM TOTAL LIPID 22321 [facility] PANEL 0 [facility] BLOOD 82105 [facility] COUNT 0 [facility] COMPLETE AUTO&AUTO DIFRNTL WBC HEMOGLOBI 58613 Janelle HOGAN N 0 JORDANA MALONE GLYCOSYLA PSC BRAN A1C BLD GLU A4253 M E D M E D TEST/REAG 0 SUPPLIES SUPPLIES T STRIPS HOME BLD GLU MON-50 LANCETS A4259 M E D M E D PER BOX 0 SUPPLIES SUPPLIES OF 100 LANCETS A4259 M E D M E D PER BOX 0 SUPPLIES SUPPLIES OF 100 BLD GLU A4253 M E D M E D TEST/REAG 0 SUPPLIES SUPPLIES T STRIPS HOME BLD GLU MON-50 TRANSFERA 86053 [facility] LAB DEXTER SE 0 AMERIC AMERIC ASPARTATE HOLDING HOLDING AMINO AST SGOT BASIC 06898 LAB [facility] LAB DEXTER METABOLIC 0 AMERIC AMERIC PANEL HOLDING HOLDING CALCIUM TOTAL HEMOGLOBI 40627 LAB DEXTER LAB DEXTER N 0 AMERIC AMERIC GLYCOSYLA HOLDING HOLDING BRAN A1C LIPID 71979 LAB [facility] LAB DEXTER PANEL 0 [employer] [place] [address] LAB DEXTER LAB DEXTER PROSTATE 0 AMERIC AMERIC SPECIFIC HOLDING HOLDING ANTIGEN TOTAL GLUC BLD 83598 [facility] GLUC MNTR 9 [facility] DEV INC INC CLEARED FDA SPEC HOME USE COLSC FLX 04346 AMILCAR ALLRAN W/RMVL 9 JR VLADIMIR, OF TUMOR SAMUEL Oliva POLYP LESION SNARE TQ ESOPHAGOG 02132 [facility] ASTRODUOD 9 [facility] ENOSCOPY INC INC TRANSORAL DIAGNOSTI C EGD 68989 ANUMRAN ALLRAN TRANSORAL 9 JR VLADIMIR, BIOPSY SAMUEL Oliva SINGLE/MU LTIPLE OTHER 4513 [facility] ENDOSCOPY 9 [facility] OF SMALL INC INC INTESTINE ENDOSCOPI 4542 [facility] C 9 [facility] POLYPECTO INC [place] [address] PATHOLOGY PATHOLOGY SURG 9 & & PATHOLOGY CYTOLOGY CYTOLOGY LAB LAB GROSS&[place] [address] [facility] INFUSION 9 [facility] THERAPY/P INC INC ROPHYLAXI S /DX 1ST TO 1 HR INITIAL 41051 AMILCAR ALLRAN INPATIENT 9 JR, JR, CONSULT SAMUEL Oliva NEW/ESTAB [place] [address] [place] [address] [place] R[place], ABDOMEN 9 MEDICAL MATY W/O IMAGING CONTRAST ASSOCIATE MATERIAL S TRANSFUSI 9904 [facility] ON OF 9 [facility] PACKED INC INC CELLS 3D 30464 [place] R[place], RENDERING 9 MEDICAL MATY IMAGING W/INTERP& ASSOCIATE POSTPROC S DIFF WORK STATION RADIOLOGI 80806 [place] DAYANA, C EXAM 9 MEDICAL JUMANA P CHEST 2 IMAGING VIEWS ASSOCIATE FRONTAL&L S ATERAL ECG 54294 [facility] PETERSON, ROUTINE 9 [facility] W/LEAST PROF SERV 12 LDS I&R ONLY CT PELVIS 48205 [facility], W/O 9 MEDICAL MATY CONTRAST IMAGING MATERIAL ASSOCIATE S THERAPEUT 60145 LICK[place] BESSON, IC 9 [facility] A PROPHYLAC INTERNAL TIC/DX MED INJECTION SUBQ/IM THERAPEUT 59717 [place] BESSON, IC 9 [facility] A PROPHYLAC INTERNAL TIC/DX MED INJECTION SUBQ/IM THERAPEUT 44090 LICK[place] MCKEMIE IC 9 VALLEY JR, PROPHYLAC INTERNAL SHARONA F TIC/DX MED INJECTION SUBQ/IM THERAPEUT 62250 [facility] BESSON, IC 9 [facility] A PROPHYLAC INTERNAL TIC/DX MED INJECTION SUBQ/IM CYANOCOBA 07703 LAB DEXTER LAB DEXTER LUBNA 9 AMERIC AMERIC VITAMIN HOLDING HOLDING B-12 COMPREHEN 53579 COMBINED COMBINED SIVE 9 PHYSICIAN PHYSICIAN METABOLIC S LAB S LAB PANEL SYPHILIS 42304 LAB D[facility]TER LAB DEXTER TEST 9 AMERIC AMERIC QUANTIT[place] [address] COMBINED COMBINED THYROID 9 PHYSICIAN PHYSICIAN STIMULATI S LAB S LAB NG HORMONE TSH HEMOGLOBI 69537 COMBINED COMBINED N 9 PHYSICIAN PHYSICIAN GLYCOSYLA S LAB S LAB BRAN A1C LIPID 34380 COMBINED COMBINED PANEL 9 PHYSICIAN PHYSICIAN S LAB S LAB COMPREHEN 94953 [facility] SIVE 9 [facility] METABOLIC INC INC PANEL L HRT 22795 [facility] FALLUJI, CATHETERI 9 FAMILY NEZAR M ZATION PHYSICIAN [place] [address] [facility] FALLUPANDA C-CATHJ 9 FAMILY NEZAR M F/SLCTV C PHYSICIAN ANGRPH PSC I SI&R 86135 [facility] FALLUJI, F/NJX PX 9 FAMILY NEZAR M DURING PHYSICIAN C-CATHJ PSC VENTR&/AT R ANGRPH I SI&R 01605 [facility] ANDRES, F/NJX PX 9 FAMILY ADELINE Perry DURING PHYSICIAN C-CATHJ PSC PULM&/OR SELECT TCAT PLMT 67808 SAMI CAMPOS, 9 FAMILY ADELINE Perry INTRACORO PHYSICIAN CHELY PSC STENT PRQ 1 VESSEL INJECTION 68983 [facility] ANDRES, CARDIAC 9 FAMILY ADELINE Perry CATHJ L PHYSICIAN VENTR/L PSC ATR ANGIOGRAP H ECG 78904 [place] ROUTINE 9 [place] III, ECG CLINIC SUZY L W/LEAST PSC 12 LDS I&[place] [address] [facility] UREA 9 [facility] NITROGEN INC INC QUANTITAT LYNN PROTHROMB 82632 [facility] IN TIME 9 [facility] INC INC CREATININ 86873 [facility] E BLOOD 9 [facility] INC INC ECHO 14210 [facility] ANDRES, TTHRC R-T 9 FAMILY ADELINE Perry 2D PHYSICIAN W/WOM-MOD PSC E COMPL SPEC&COLR D NON-INVAS 95617 LEIGHA ANNE LYNN 9 MEDICAL JUMANA Guerrero PHYSIOLOG IMAGING IC STUDY ASSOCIATE EXTREMITY S 3 LEVLS DOPPLER 02847 [facility] ECHOCARD 9 [facility] PULSE INC INC WAVE W/SPECTRA L DISPLAY ECHO 53466 [facility] TRANSTHOR 9 [facility] AC R-T 2D INC INC W/WO M-MODE REC COMP DOP 36441 [facility] ECHOCARD 9 [facility] COLOR INC INC FLOW VELOCITY MAPPING BLOOD 99469 [facility] COUNT 9 [facility] COMPLETE INC INC AUTO&AUTO DIFRNTL WBC NATRIURET 48397 [facility] IC 9 [facility] PEPTIDE INC INC COMPREHEN 05703 [facility] SIVE 9 [facility] [address] [facility] THYROID 9 [facility] STIMULATI INC INC NG HORMONE TSH COMPREHEN 40660 [facility] SIVE 9 [facility] METABOLIC INC INC PANEL ALBUMIN 23450 [facility] URINE 9 [facility] MICROALBU INC INC MIN QUANTIATI VE LIPID 50664 [facility] PANEL 9 [facility] INC INC LIPID 34051 [facility] PANEL 8 [facility] INC INC HEMOGLOBI 61884 [facility] N 8 [facility] GLYCOSYLA INC INC BRAN A1C ALBUMIN 30063 [facility] URINE 8 [facility] MICROALBU INC INC MIN QUANTIATI VE COMPREHEN 18953 [facility] SIVE 8 [facility] METABOLIC INC INC PANEL COMPREHEN 67145 [facility] SIVE 8 [facility] METABOLIC INC INC PANEL CV STRS 88545 [facility] COATS, TST 8 [facility] RX CONT PROF SERV ECG I&R ONLY ALBUMIN 85495 [facility] URINE 8 [facility] MICROALBU INC INC MIN QUANTIATI VE MYOCRD 69058 [facility] PRFUJ STD 8 [facility] EJEC FXJ INC INC MYOCRD 38662 [facility] PRFUJ IMG 8 [facility] TOMOG INC INC 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 MYOCRD 81283 [facility] PRFUJ STD 8 [facility] WALL INC INC MOTION QUAL/CHAR STD HEMOGLOBI 94587 [facility] N 8 [facility] GLYCOSYLA INC INC BRAN A1C LIPID 92672 [facility] PANEL 8 [facility] INC INC CV STRS 05504 [facility] TST 8 [facility] XERS&/OR INC INC RX CONT ECG TRCG ONLY CV STRS 16974 [facility] COATS, ANIL 8 [facility] RX CONT PROF SERV ECG W/O I&R ECG 92120 MARQUITAKING CHRIS, ROUTINE 8 [facility] ECG INTERNAL W/LEAST MED 12 LDS W/I&R LIPID 83387 [facility] PANEL 8 [facility] INC INC HEMOGLOBI 74861 [facility] N 8 [facility] GLYCOSYLA INC INC BRAN A1C ALBUMIN 26522 [facility] URINE 8 [facility] MICROALBU INC INC MIN QUANTIATI VE COMPREHEN 03106 [facility] SIVE 8 [facility] METABOLIC INC INC PANEL ALBUMIN 29248 LICKING CHRIS, URINE 8 [facility] MICROALBU INTERNAL MIN MED SEMIQUANT ITATIVE Encounters Encounter Start End Date Code Location Performer Type Date OFFICE 82804 A C JOSE G OUTPATIEN 7 7 JORDANA PORTILLO T VISIT PSC 25 MINUTES OFFICE 51228 A Alexa ARAIZA OUTPATIEN 7 7 JORDANA PORTILLO T VISIT PSC 25 MINUTES [facility] OUTPATIEN INC T EMERGENCY 15720 [facility] DEPT 6 6 [facility] VISIT INC HIGH SEVERITY& THREAT FUNCJ OFFICE 62260 A C JOSE G MICHELLE OUTPATIEN 6 6 JORDANA PORTILLO T VISIT PSC 15 MINUTES OFFICE 57137 A Alexa ARAIZA MICHELLE OUTPATIEN 6 6 JORDANA PORTILLO T VISIT PSC 10 MINUTES OFFICE 77698 A Alexa ARAIZA MICHELLE OUTPATIEN 6 6 JORDANA PORTILLO T VISIT PSC 25 MINUTES OFFICE 24578 A Alexa MARTINEZ OUTPATIEN 5 5 JORDANA PORTILLO T VISIT PSC 15 MINUTES OFFICE 15235 A C DEION OUTPATIEN 5 5 JORDANA HOUSTON T VISIT PSC 15 MINUTES OFFICE 44493 A Alexa MARTINEZ OUTPATIEN 5 5 JORDANA PORTILLO T VISIT PSC 15 MINUTES OFFICE 43177 A Alexa ARAIZA MICHELLE OUTPATIEN 5 5 JORDANA PORTILLO T VISIT PSC 15 MINUTES OFFICE 53671 A Alexa ARAIZA MICHELLE OUTPATIEN 5 5 JORDANA PORTILLO T VISIT PSC 15 MINUTES HOME [facility], 5 5 REGISTRY INPATIENT & HOME HE OFFICE 30064 A Alexa MARTINEZ OUTPATIEN 5 5 JORDANA PORTILLO T VISIT PSC 15 MINUTES HOME [facility], 5 5 REGISTRY INPATIENT & HOME OFFICE 09508 [facility] ELROY NUNEZ OUTPATIEN 5 5 PHYSICIAN T VISIT S GROUP 15 MINUTES OFFICE 31333 [facility] OUT[facility]IEN 5 5 [facility] T VISIT INC 10 MINUTES [facility] - 5 5 [facility] OUTPATIEN INC T EMERGENCY 48225 ISRAEL MCKEE DEPT 5 5 PHYSICIAN U CHANDLER VISIT S, [facility] HIGH SEVERITY& THREAT [facility] OFFICE 60526 A Alexa MARTINEZ OUTPATIEN 5 5 JORDANA PORTILLO T VISIT PSC 15 MINUTES OFFICE 38355 A Alexa MARTINEZ OUTPATIEN 5 5 JORDANA PORTILLO T VISIT PSC 15 MINUTES [facility] - 5 5 [facility] OUTPATIEN INC OFFICE 37936 A Alexa MARTINEZ OUTPATIEN 5 5 JORDANA PORTILLO T VISIT PSC 25 MINUTES OFFICE 66770 MITESH GRIFFITHS ANT CONSULTAT 5 5 MEDICAL ION SERV NEW/ESTAB FOUNDATIO PATIENT N 40 MIN [facility] - [facility] 5 [facility] OUTPATIEN INC T [facility] - 5 5 [facility] OUTPATIEN INC T OFFICE 60978 [facility] AMILCAR GILBERT OUTPATIEN 5 5 PHYSICIAN LUL T VISIT S GROUP 15 MINUTES [facility] - 5 5 [facility] OUTPATIEN INC T [facility] - 5 5 [facility] OUTPATIEN INC T OFFICE 34658 HARRIETT LORENZANA OUTPATIEN 5 5 DES DES T NEW 20 MINUTES [facility] 5 5 [facility] OUTPATIEN INC [facility] - 5 5 [facility] OUTPATIEN INC OFFICE 83594 [facility] ALLMIRACLE JR OUTPATIEN 5 5 PHYSICIAN LUL T VISIT S GROUP 15 MINUTES [facility]OSPITAL [facility] - 5 5 [facility] OUTPATIEN [facility] OFFICE 23362 [facility] ALLMIR[facility] JR OUTPATIEN 4 4 PHYSICIAN LUL T NEW 30 S GROUP MINUTES OFFICE 41869 A Alexa MARTINEZ OUTPATIEN 4 4 JORDANA PORTILLO T VISIT PSC 25 MINUTES EMERGENCY 56126 VIKTORIYA IZQUIERDO 4 4 [facility] EMERGENCY T VISIT PHYS HIGH/URGE NT SEVERITY [facility]OSP[facility] - 4 4 [facility] OUTPATIEN [facility] OFFICE 60815 A Alexa JUÁREZ 4 4 JORDANA PORTILLO T VISIT PSC 25 MINUTES OFFICE 05835 JOSE G MARTINEZ OUTPATICONSTANTINE 4 4 T VISIT 25 MINUTES EMERGENCY 38941 FELECIA IZQUIERDO DEPT 4 4 [facility] VISIT HIGH SEVERITY& THREAT [facility] OFFICE 01174 JOSE G MARTINEZ OUTPATIEN 4 4 T VISIT 25 MINUTES OFFICE 27938 A Alexa JUÁREZ 3 3 JORDANA PORTILLO T VISIT PSC 25 MINUTES EMERGENCY 96056 EDUARDO CAST DEPT 3 3 EMERGENCY ONEIL VISIT SERVICES HIGH SEVERITY& THREAT [facility] H[facility]PITAL PRESTON - 3 3 [facility]ON - 3 3 [facility] PRESTON - 3 3 [facility] INC OFFICE 59720 A Alexa JUÁREZ 3 3 JORDANA PORTILLO T VISIT PSC 25 MINUTES HOSP[facility] PRESTON - 3 3 [facility] T [facility] - [facility] 3 [facility] T [facility] - [facility] 3 [facility] T OFFICE 96986 JOSE GPAVEL JOHNSTONES MICHELLE OUTPATIEN 3 3 T VISIT 15 MINUTES OFFICE 99234 JOSE G ARCHULETA MICHELLE OUTPATIEN 3 3 T VISIT 15 MINUTES [facility]OSP[facility] PRESTON - [facility] 3 [facility] T OFFICE 78569 JOSE G ARCHULETA MICHELLE OUTPATIEN 3 3 T VISIT 25 MINUTES OFFICE 33402 JOSE GPAVEL ARCHULETA MICHELLE OUTPATIEN 2 2 T VISIT 25 MINUTES OFFICE 56436 SAMIRA SAMIRA OUTPATIEN 2 2 ROSANNA ROSANNA T VISIT 25 MINUTES OFFICE 14187 SAMIRA SAMIRA OUTPATIEN 2 2 ROSANNA ROSANNA T VISIT 25 MINUTES OFFICE 56822 A C SAMIRA OUTPATIEN 1 1 JORDANA PORTILLO ROSANNA T VISIT PSC 25 MINUTES OFFICE 28581 A C OUTPATIEN 1 1 JORDANA PORTILLO T VISIT PSC 25 MINUTES HOSP[facility] PRESTON - 1 1 [facility] - [facility] 1 [facility] T OFFICE 43477 [place] IHSAN GABI CONSULTAT 1 1 MEDICAL ION SERV NEW/ESTAB FOUNDATIO PATIENT 60 MIN OFFICE 88840 [facility] FALLUJI OUTPATIEN 1 1 PHYSICIAN JULIETH T VISIT S GROUP 25 MINUTES HOSPITAL PRESTON - 1 1 [facility] T OFFICE 89637 [facility] F[facility] OUTPATIEN 1 1 PHYSICIAN JULIETH T VISIT S GROUP 25 MINUTES OFFICE 19950 A C SAMIRA OUTPATIEN 1 1 JORADNA MARTE T VISIT PSC 25 MINUTES OFFICE 95726 [place] [address] [facility] T VISIT CLINIC 15 PSC MINUTES OFFICE 38765 [place] [facility] CONSULT[facility] 1 1 [facility] NEW/ESTAB PSC PATIENT 60 MIN [facility] PRESTON - [facility] 1 [facility] 0 [facility] T OFFICE 11021 A C SAMIRA OUTPATIEN 0 0 JORDANA MARTE T VISIT PSC 25 MINUTES OFFICE 66206 A C SAMIRA OUTPATIEN 0 0 JORDANA MARTE T VISIT PSC 15 MINUTES OFFICE 50472 A C SAMIRA, OUTPATIEN 0 0 JORDANA MALONE T VISIT PSC 25 MINUTES OFFICE 69168 A Alexa SILVEIRA, A OUTPATIEN 0 0 JORDANA Liu T VISIT 5 PSC MINUTES OFFICE 58601 A C SAMIRA, OUTPATIEN 0 0 JORDANA MALONE T [facility] 45 PSC MINUTES OFFICE 09562 ALLRAN ALLRAN OUTPATIEN 0 0 JR GILBERT T VISIT SAMUEL Oliva 15 MINUTES OFFICE 32377 ALLRAN ALLRAN OUTPATIEN 9 9 JR GILBERT T VISIT SAMUEL Oliva 15 MINUTES [facility] - 9 9 [facility] PRESTON - 9 9 [facility] EMERGENCY 37117 EDUARDO YUAN, DEPT 9 9 EMERGENCY JESSICA S VISIT SERVICES HIGH SEVERITY& ASSOCIATE THREAT S [facility] OFFICE 67586 MAMTA WAITE 9 9 AILIN SADE A T VISIT 5 INTERNAL MINUTES MED OFFICE 03098 LICMAMTA CHRISTIANSON 9 9 [place] SADE A T VISIT 5 INTERNAL MINUTES MED OFFICE [id number] [facility] PAULY, OUTPATIEN 9 9 [place] [facility] A T VISIT 5 INTERNAL MINUTES MED OFFICE 22446 [facility] LELAND OUTPATIEN 9 9 AILIN JR, T VISIT 5 INTERNAL SHARONA F MINUTES MED OFFICE 71215 [facility] BESSON, OUTPATIEN 9 9 [place] A T VISIT 5 INTERNAL MINUTES MED OFFICE 06250 [facility] MARCIANOSON, OUTPATIEN 9 9 [place] A T VISIT 5 INTERNAL MINUTES MED OFFICE 26426 [facility] BESSON, OUTPATIEN 9 9 [place] A T VISIT 5 INTERNAL MINUTES MED OFFICE 57432 [facility] LEL[facility] OUTPATIEN 9 9 AILIN GILBERT, T VISIT 5 INTERNAL SHARONA F MINUTES MED OFFICE 17663 [facility] PAULY, OUTPATIEN 9 9 AILIN SADE A T VISIT INTERNAL 25 MED MINUTES OFFICE 61209 [facility], [facility] 9 9 FAMILY ADELINE Perry T VISIT PHYSICIAN 25 PSC MINUTES [facility] 44739 [facility] FALLUJI[facility] OUTPATIEN 9 9 FAMILY ADELINE Perry T VISIT PHYSICIAN 25 PSC MINUTES [facility] 05049 [facility] FALL[facility], CONSULTAT 9 9 FAMILY ADELINE Perry ION PHYSICIAN NEW/ESTAB PSC PATIENT 60 MIN [facility] 45354 [facility] CHRIS OUTPATIEN 9 9 AILIN ZAVALA T VISIT INTERNAL 15 MED MINUTES [facility] - 8 8 [facility] T OFFICE 28942 [facility] PEREZ 8 8 [place] T VISIT INTERNAL 15 MED MINUTES [facility] - 8 8 [facility] INC T OFFICE 39148 L[facility] LE 8 8 [place] [facility] T VISIT INTERNAL 15 MED MINUTES OFFICE 13974 [facility] CH[facility] OUTPATICONSTANTINE 8 8 [place] T VISIT INTERNAL 15 MED MINUTES [facility] - 8 8 [facility] T OFFICE 47116 [facility] MAM[facility] PEREZ 8 8 [place] T VISIT INTERNAL 15 MED MINUTES OFFICE 91057 [facility] WAITE 8 8 [place] T VISIT INTERNAL 15 MED MINUTES OFFICE 99346 [facility] BRANCH 8 8 [facility] LIZZIE T VISIT SERV N 15 FOUNDATIO MINUTES
--- OUTSIDE RECORDS SUMMARY | 2017-05-24 18:56 | External Medical Summary Rpt ---
Author Author , BARRY Organization BARRY Address Unknown Phone [email or web address] Care Team Providers Care Public Health Nurse Name Role Phone A Alexa SILVEIRA MD [...] [facility] Unavailable Unavailable [facility] TARUN III, SUZY L, Unavailable Unavailable TARUN [...] Unavailable Unavailable INC, [facility] Unavailable Unavailable HOSPITAL P, [facility] LUCAS PEREZ HARVEY, Unavailable Unavailable LUCAS [facility], [facility]available Unavailable [facility], [facility] Unavailable Unavailable IMAGING ASS, [facility] KILPELA JEA, KILPELA Unavailable Unavailable [facility], [facility] Un[facility], [facility] Unavailable Unavailable HOLDING, [facility] [employer] [facility], Unavailable Unavailable [facility] [place] [facility] LORENZANA DES, LORENZANA Unavailable Unavailable DES LORENZANA DES, LORENZANA Unavailable Unavailable DES NICHOLAS JR DWI, NICHOLAS Unavailable Unavailable JR DWI NICHOLAS, FRANCISCO E, Unavailable Unavailable FRANCISCO PETERSON E M E D SUPPLIES, M E D Unavailable Unavailable SUPPLIES [facility] Unavailable Unavailable SERVICES, [facility] LELAND GILBERT, SHARONA Unavailable Unavailable F, LELAND GILBERT, SHARONA F JUMANA ANNE P, Unavailable Unavailable JUMANA ANNE P JOSE G ARAIZA Unavailable Unavailable JOSE G MICHELLE, JOSE G MICHELLE Unavailable Unavailable JOSE G MICHELLE, JOSE G MICHELLE Unavailable Unavailable [facility] Unavailable Unavailable PSC, [facility] NORELLE SANDRA, NORELLE Unavailable Unavailable [...] [facility] Un[facility] Unavailable [facility]Y PH[facility], [facility] TALITA SHE, Unavailable Unavailable TALITA SHE ORVILLE MAT, ORVILLE MAT Unavailable Unavailable [facility] Unavailable Unavailable #591, [facility] Unavailable Unavailable #591, [facility] # Unavailable Unavailable [id number], [facility] # [id number] Janelle SILVEIRA WRIGHT, Unavailable Unavailable A Alexa Purpose Continuity of Care Document - 11-11-2007 through 2016 Problems Code Diagnosis DOS Provider Status E1140 TYPE 2 DM 03-16-2017 A Alexa SILVEIRA WITH [facility] DIABETIC NEUROPATHY UNSPECIFIED E782 MIXED 03-16-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 SILVEIRA HYPERLIPIDE [facility] TONIE G894 CHRONIC 03-16-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 SILVEIRA PAIN [facility] SYNDROME I10 ESSENTIAL 03-16-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 SILVEIRA PRIMARY [facility] HYPERTENSIO N I739 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-16-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 [...] 11-18-2016 A Alexa SILVEIRA MD [facility] UNSPECIFIED [id number] COMBINED 06-17-2016 [place] [facility] CAT[facility] LEFT EYE S54605 COMBINED 05-20-2016 [place] [facility] CAT[facility] RIGHT EYE E119 TYPE 2 03-14-2016 [facility] WITHOUT COMPLICATIO NS R079 CHEST PAIN 03-14-2016 [place] [facility] R42 DIZZINESS 03-14-2016 [place] [facility] 47585 DIAB W/O 08-07-2015 A Alexa SIERRA MD PSC COMP TYPE II/UNS TYPE UNCNTRL V0481 NEED 07-31-2015 A Alexa SILVEIRA PROPHYLACTI P[facility] C VACCINATION &INOCULATIO N FLU 6825 CELLULITIS 06-19-2015 NURSES AND ABSCESS REGISTRY & OF BUTTOCK HOME HE 6850 PILONIDAL 06-19-2015 NURSES [place] REGISTRY [place] [address] DIAB 05-31-2015 A Alexa Zacarias/BERONICA PORTILLO PSC MANIFESTS TYPE II/UNS TYPE UNCNTRL 29157 DIAB W/O 05-28-2015 [facility] COMP TYPE I [facility] [JUV] NOT INC STATED UNCNTRL 4019 UNSPECIFIED 05-28-2015 [facility] ESSENTIAL [facility] [place]SIO [place] N 91863 SQUAMOUS 05-07-2015 [facility] CARCINOMA SKIN TRUNK EXCPT SCROTUM 2382 NEOPLASM OF 05-07-2015 [facility]AIN [facility] BEHAVIOR OF SKIN V8533 BODY MASS 05-07-2015 A Alexa MCKEON MD PSC 33.0-33.9 ADULT V8534 BODY MASS 02-20-2015 A Alexa MCKEON MD [facility] 34.0-34.9 ADULT 7873 FLATULENCE 02-06-2015 [place] [facility] PAIN 72966 ABDOMINAL 02-06-2015 [place] PAIN, MEDICAL UNSPECIFIED IMAGING ASS SITE 3384 CHRONIC 01-30-2015 A Alexa SILVEIRA PAIN [facility] SYNDROME 4011 ESSENTIAL 01-30-2015 A Alexa SILVEIRA HYPERTENSIO P[facility] N, BENIGN 77172 ATHEROSLERO 01-30-2015 A Alexa ESPINOZA MD P[facility] EXTREM W/INTERMIT CLAUDICAT 2859 UNSPECIFIED 01-29-2015 [facility] 79231 UNSPECIFIED 01-29-2015 [facility] N 09142 OTHER 01-19-2015 [facility] DISORDERS INC OF INTESTINE 5758 OTHER 01-19-2015 [place] SPECIFIED MEDICAL DISORDER OF IMAGING ASS GALLBLADDER 63905 ABDOMINAL 01-16-2015 [facility] PAIN, PHYSICIANS GENERALIZED GROUP V1272 PERSONAL 01-16-2015 [facility] HISTORY OF PHYSICIANS COLONIC GROUP POLYPS 19044 UNSPECIFIED 12-28-2014 [facility] NEOPLASM INC SCALP & SKIN NECK 2150 OTH BOB 12-28-2014 LORENZANA DSE NEOPLSM CNCTV&OTH SFT TISS HEAD FCE&NCK 58937 OTHER 12-28-2014 [facility] KERATOSIS 7099 UNSPECIFIED 12-28-2014 [facility] DISORDER ANESTH OF OF THE BLUE SKIN&SUBCUT ANEOUS TISSUE V7284 UNSPECIFIED 12-27-2014 [facility] VE EXAMINATION 2113 BENIGN 11-21-2014 [facility], NEOPLASM OF LLC COLON 01677 DIVERTICULO 11-21-2014 [facility] SIS OF PHYSICIANS COLON GROUP V6709 FOLLOW-UP 11-21-2014 COMMUN[facility] EXAMINATION ANESTH OF FOLLOWING THE BLUE OTHER SURGERY V7651 SPECIAL 11-21-2014 [facility] SCREENING PHYSICIANS FOR GROUP MALIGNANT NEOPLASMS COLON 6851 PILONIDAL 11-07-2014 [facility] CYST PHYSICIANS WITHOUT GROUP MENTION OF ABSCESS 17055 DIAB 10-19-2014 A Alexa SILVEIRA W/RENAL [facility] MANIFESTS TYPE II/UNS TYPE UNCNTRL 00858 CHEST PAIN 10-19-2014 A Alexa SILVEIRA UNSPECIFIED PSC V0382 NEED PROPH 10-19-2014 A Alexa SILVEIRA VACCINATION [facility] AGAINST STREP PNEUMONE 4660 ACUTE 08-07-2014 [facility]ERG[facility]Y PHYS 496 CHRONIC 08-07-[address] [facility] [address] N EMERGENCY OBSTRUCTION PHYS NEC 28475 SHORTNESS 08-07-2014 [facility] 92879 WHEEZING 08-07-2014 [facility] N [facility]ERGENCY PHYS 7862 COUGH 08-07-2014 [facility] 2724 OTHER AND 07-31-2014 [facility]NSPECIFIED [facility] INC HYPERLIPIDE TONIE 4280 CONGESTIVE 07-31-2014 [place] [facility] FAILURE [facility] UNSPECIFIED 7910 PROTEINURIA 07-20-2014 A Alexa SILVEIRA MD PSC 4293 CARDIOMEGAL 01-23-2014 R[facility] Y MARGARITA 486 PNEUMONIA, 01-23-2014 [facility] ORGANISM UNSPECIFIED 04090 PRECORDIAL 01-23-2014 [facility] PAIN 591 HYDRONEPHRO 06-05-2013 [facility] SIS MARGARITA 5920 CALCULUS OF 06-05-2013 [facility] 5941 OTHER 06-05-2013 [facility] CALCULUS IN MARGARITA BLADDER 51984 URINARY 06-05-2013 [facility] OBSTRUCTION MARGARITA UNSPECIFIED 53647 ABDOMINAL 06-05-2013 [facility] PAIN, EMERGENCY EPIGASTRIC SERVICES 72082 ATHEROSCLER 05-01-2013 [facility] ART INC EXTREMITIES UNSPEC 22892 CORONARY 04-22-2013 [facility] ATHEROSCLER [facility] OSIS SLEETMUTE INC CORONARY ARTERY 1330 SCABIES 04-05-2013 Janelle SILVEIRA MD [facility] 29429 EMBOLISM&TH 03-07-2013 [facility] ROMBOSIS [facility] ARTERIES INC LOWER EXTREMITY 4659 ACUTE URIS 01-20-2013 JOSE G MICHELLE OF UNSPECIFIED SITE 22002 ATHEROSLERO 12-24-2012 [facility] SLEETMUTE ART MARGARITA EXTREMITIES W/REST PAIN 7820 DISTURBANCE 12-24-2012 [facility] OF SKIN [facility] SENSATION INC V7644 SPECIAL 02-11-2012 SAM[facility] ROSANNA SCREENING MALIGNANT NEOPLASM OF PROSTATE E9479 UNSPEC 11-10-2011 [facility] [place] [address] SPONDYLOSIS 08-07-2011 A Alexa SILVEIRA WITH PSC MYELOPATHY LUMBAR REGION 7242 LUMBAGO 05-06-2011 Janelle SILVEIRA MD [facility] 2809 UNSPECIFIED 02-10-2011 [place] [facility] DEFICIENCY FOUNDATIO ANEMIA V7281 PRE-OPERATI 01-13-2011 [facility] PHYSICIANS CARDIOVASCU GROUP LAR EXAMINATION 96574 PAIN IN 12-17-2010 [facility] JOINT BRAZIL PELVIC CLINIC [facility] REGION AND THIGH 7213 LUMBOSACRAL 12-17-2010 [facility] SPONDYLOSIS CLINIC [facility] WITHOUT MYELOPATHY 7295 PAIN IN 12-17-2010 NEW SOFT BRAZIL TISSUES OF CLINIC [facility] LIMB 53362 DISPLCMT 11-05-2010 [place] LUMBAR MEDICAL INTERVERT IMAGING ASS DISC W/O MYELOPATHY 3569 UNSPEC 10-17-2010 A Alexa EVANS&IDI [facility] OPATHIC PERIPHERAL NEUROPATHY 56963 SPINAL STEN 10-17-2010 A Alexa JEAN MD [facility] W/O NEUROGENIC CLAUDICATIO N 5693 HEMORRHAGE 12-13-2009 [facility] JR, OF RECTUM SAMUEL F AND ANUS 47267 DIAB W/O 10-09-2009 [facility] COMP TYPE [facility] II/UNS NOT INC STATED UNCNTRL 7921 NONSPECIFIC 10-09-2009 [facility] ABNORMAL [facility] FINDING IN INC STOOL CONTENTS V5869 LONG-TERM 10-09-2009 [facility] (CURRENT) [facility] USE OF INC OTHER MEDICATIONS 2851 ACUTE 10-05-2009 [facility] GILBERT, POSTHEMORRH SAMUEL F AGIC ANEMIA 22136 COR 10-03-2009 [facility] ATHEROSLERO [facility] UNSPEC INC TYPE VESSEL SLEETMUTE/MALOU T 5789 UNSPECIFIED 10-03-2009 [facility] HEMORRHAGE [facility] GASTROINTES PROF SERV TINAL TRACT 18905 UNSPECIFIED 10-03-2009 [facility] PYELONEPHRI SERVICES TIS ASSOCIATES 5990 URINARY 10-03-2009 [facility] INFECTION HOSPITAL SITE NOT PROF SERV SPECIFIED 95829 OSTEOARTHRO 10-03-2009 [facility] S UNSPEC [facility] WHETHER INC GEN/LOC UNSPEC SITE 7880 RENAL COLIC 10-03-2009 [facility] 18250 ABDOMINAL 10-03-2009 [facility] PAIN OTHER EMERGENCY SPECIFIED SERVICES SITE ASSOCIATES 2662 OTHER 05-08-2009 [facility] B-COMPLEX [facility] HOLLOW DEFICIENCIE INTERNAL S MED 2810 PERNICIOUS 04-09-2009 [facility] ANEMIA [facility] HOLLOW INTERNAL MED 3559 MONONEURITI 03-13-2009 [facility] S OF AMERIC UNSPECIFIED HOLDING SITE V4582 POSTSURG 01-17-2009 [facility] PERCUT FAMILY TRANSLUMINA PHYSICIAN L COR PSC ANGPLSTY STS 4111 INTERMEDIAT 01-03-2009 [facility] 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 PHYSICIAN PSC 4139 OTHER AND 01-03-2009 NEW UNSPECIFIED [facility] PSC PECTORIS V7283 OTHER 01-01-2009 [facility] SPECIFIED [facility] PRE-OPERATI INC VE EXAMINATION 4439 UNSPECIFIED 12-21-2008 [place] PERIPHERAL MEDICAL VASCULAR IMAGING DISEASE ASSOCIATES 16312 OTHER 12-20-2008 [facility] MALAISE AND FAMILY FATIGUE PHYSICIAN PSC 7823 EDEMA 12-20-2008 [facility] PHYSICIAN PSC 35790 ORTHOPNEA 12-20-2008 [facility] PHYSICIAN PSC 88445 UNSPECIFIED 11-22-2008 [facility] INTERNAL MED ABNORMALITY 3572 POLYNEUROPA 09-20-2008 [facility] THY IN [facility] HOLLOW DIABETES INTERNAL MED 68277 SPINAL 03-13-2008 [facility] STENOSIS [facility] HOLLOW OTHER INTERNAL REGION MED OTHER THAN CERVICAL 33642 DEGEN 11-11-2007 [place] [facility] LUMBAR/LUMB SERV OSACRAL [...] 23 8- 9 SI [address] 76 20 [...] # TA 10 BL [address] 37 06 06 0 30 [...] 3- 00 MA 31 ER ve DE 62 20 20 RT 4 DE 41 [...] 5- 00 MA 82 ER ve DE 17 20 20 0 RT 4 N [...] 5- 00 MA 82 ER ve DE 62 20 20 RT 9 DE 41 [...] 7- 00 MA 82 ER ve DE 17 20 20 0 RT 4 N [...] 7- 00 MA 82 ER ve DE 62 20 20 RT 9 DE 41 [...] 9- 9- 00 MA 24 ER ve DE 17 20 20 0 RT 4 N [...] 40 9 00 MA 24 ER ve DE 62 20 20 RT 7 DE 41 [...] BL [address] 37 11 11 0 [...] BL [address] 37 10 10 0 [...] 6- 6- 00 MA 46 ER ve DE 62 20 20 RT 7 DE 41 [...] 6- 6- 00 MA 46 ER ve DE 17 20 20 0 RT 9 N [...] BL [address] 37 09 09 0 30 [...] 6- 6- 00 MA 56 ER ve DE 17 20 20 0 RT 8 N [...] 2- 0- 00 MA 64 ER ve DE 17 20 20 0 RT 4 N [...] [address] 37 06 08 2 [...] 2- 0- 00 MA 64 ER ve DE 17 20 20 0 RT 4 N 80 10 10 RI HC 1 PH CH L AR AR ER MA D CY 50 # 0 MG 10 05 TA [address] 37 06 07 2 30 30 [...] 2- 2- 00 MA 64 ER ve DE 17 20 20 0 RT 4 N 80 10 10 RI HC 1 PH CH L AR AR ER MA D CY 50 # 0 MG 10 05 TA [address] 37 06 06 2 30 30 [...] 8- 8- 00 MA 18 ER ve DE 17 20 20 0 RT 8 N [...] 9- 0- 00 MA 11 ER ve DE 17 20 20 0 RT 0 N [...] ET [address] 37 02 04 [...] 9- 9- 00 MA 11 ER ve DE 17 20 20 0 RT 0 N 80 10 10 RI HC 1 PH CH L AR AR ER MA D CY 50 # 0 MG 10 05 TA 91 BL ET GL 00 05 03 3 12 30 WA 70 MC Ac YB 09 -2 -1 0. L- 21 KE ti UR 38 6- 9- 00 MA 91 DE ve ID 34 20 20 0 RT [...] D TA CY BL ET #[address] 37 12 02 02 30 [...] UR 38 6- 6- 00 MA 91 DE ve ID 34 20 20 0 RT 1 E E 40 09 10 JR 5 1 PH MG AR WI MA LL TA CY IA BL M ET #5 F 91 ME 53 08 02 03 12 30 WA 70 BE Ac TF 74 -2 -2 0. L- 33 SS ti OR 60 1- 6- 00 MA 34 ON ve DE 17 20 20 0 RT 3 N [address] HC 1 PH EP L AR HE ER MA N CY A 50 0 #5 MG 91 TA BL ET ME 53 08 01 02 12 30 WA 70 BE Ac TF 74 -2 -2 0. L- 33 SS ti OR 60 1- 8- 00 MA 34 ON ve DE 17 20 20 0 RT 3 N [...] HE MA N CY A #[address] 37 12 12 00 30 30 [...] OF 10 7- 3- 00 MA 59 DE ve LO 12 20 20 RT 2 [...] UR 38 6- 4- 00 MA 91 DE ve ID 34 20 20 0 RT [...] UR 38 6- 4- 00 MA 91 DE ve ID 34 20 20 0 RT [...] ti 50 0- 9- 00 MA 32 DE ve 12 20 20 RT 7 E [...] 1- 6- 00 MA 67 UJ ve DE 20 20 20 RT 9 I DE [...] 2- 0- 00 MA 17 EY ve DE 26 20 20 RT 9 N 00 [...] 2- 1- 00 MA 17 EY ve DE 26 20 20 RT 9 N 00 [...] 2- 0- 00 MA 17 EY ve DE 26 20 20 RT 9 N 00 [...] 1- 3- 00 MA 97 EY ve DE 26 20 20 RT 6 N 00 [...] 1- 6- 00 MA 97 EY ve DE 26 20 20 RT 6 N 00 [...] 1- 4- 00 MA 97 EY ve DE 26 20 20 RT 6 N 00 [...] 1- 7- 00 MA 97 EY ve DE 26 20 20 RT 6 N 00 [...] 7- 2- 00 MA 30 EY ve DE 26 20 20 RT 0 N 00 [...] A C 2-20 S WRIG VACC 15 MCIHELLE HT MD PRES PSC RV FREE 0.5 [...] #591 #591 HOME BLD GLU MON-50 CATARACT 74200 [facility] CALIX[facility] REMOV[facility] 6 [facility] CATARACT 33964 [facility] 6 [facility] BLD GLU A4253 [facility] TEST/REAG 6 PHARMACY PHARMACY T STRIPS #591 #591 HOME BLD GLU 50 RADIOLOGI 36220 LEIGHA LIMA ALL C EXAM 6 MEDICAL CHEST 2 IMAGING VIEWS ASS FRONTAL&[place] [address] [facility] INFUSION 6 [facility] THERAPY/P INC INC ROPHYLAXI S /DX 1ST TO 1 HR THERAPEUT 83902 [facility] IC 6 [facility] INJECTION [place] [address] [facility] HEAD/BRAI 6 [facility] N W/O INC INC CONTRAST MATERIAL CREATINE 40287 [facility] KINASE 6 [facility] TOTAL INC INC ECG 37902 [facility] ROUTINE 6 [facility] ECG INC INC W/LEAST 12 LDS TRCG ONLY W/O I&R FINAL G9638 LEIGHA LIMA ALL REPORTS 6 MEDICAL W/O DOC IMAGING 1/MORE ASS DOSE REDUCTION TECH COLLECTIO 64040 [facility] N VENOUS 6 [facility] BLOOD INC INC VENIPUNCT URE COMPREHEN 22013 [facility] SIVE 6 [facility] METABOLIC INC INC PANEL CREATINE 83763 [facility] KINASE MB 6 [facility] [place] [address] [facility] LACTATE 6 [place] [address] [facility] TROPONIN 6 [facility] QUANTITAT INC INC LYNN BLOOD 75646 [facility] COUNT 6 [facility] COMPLETE INC INC AUTO&AUTO DIFRNTL WBC ECG 51869 [facility] JR ROUTINE 6 [facility] W/LEAST P 12 LDS I&R ONLY LIPID 40575 A C JOSE G MICHELLE PANEL 6 JORDANA PORTILLO PSC HEMOGLOBI 77611 A Alexa MARTINEZ N 6 JORDANA PORTILLO GLYCOSYLA PSC BRAN A1C IIV4 VACC 15713 A Alexa MARTINEZ PRESRV 5 JORDANA PORTILLO FREE 0.5 PSC ML FOR IM USE IM ADM 81327 A Alexa MARTINEZ PRQ ID 5 JORDANA PORTILLO SUBQ/IM PSC NJXS 1 VACCINE DIRECT G0154 NURSES NURSES SKILL 5 REGISTRY REGISTRY NURSE & HOME HE & HOME HE SERVICES HH/HOSPIC E EA 15 MIN DIRECT G0154 NURSES NURSES SKILL 5 REGISTRY REGISTRY NURSE & HOME HE & HOME HE SERVICES HH/HOSPIC E EA 15 MIN GLUCOSE 05764 A Alexa MARTINEZ QUANTITAT 5 JORDANA PORTILLO LYNN BLOOD PSC XCPT REAGENT STRIP STERILE A4217 NURSES NURSES WATER/ERICH 5 REGISTRY REGISTRY INE 500 & HOME HE & HOME HE ML GAUZE A6402 NURSES NURSES NON-IMPRE 5 REGISTRY REGISTRY G STERL & HOME HE & HOME HE 16 SQ/< W/O ADHES BORDR INCISION 56736 ISRAEL MCKEE & 5 PHYSICIAN U [facility] PILONIDAL CYST SIMPLE EXC B9 34630 A Alexa MARTINEZ LESION 5 JORDANA PORTILLO MRGN XCP PSC SK TG T/A/L 0.6-1[place] [address] [facility] SURG 5 DIAGNOSTI DIAGNOSTI PATHOLOGY [facility] GROSS&NELSON ROSCOPIC EXAM HEMOGLOBI 77872 A Alexa MARTINEZ N 5 JORDANA PORTILLO GLYCOSYLA PSC BRAN A1C GLUCOSE 32570 A Alexa MARTINEZ QUANTITAT 5 JORDANA PORTILLO LYNN BLOOD PSC XCPT REAGENT STRIP GASTRIC 02404 [place] [facility] EMPTYING 5 MEDICAL [place] IMAGING IMAGING STUDY ASS TECHNETIU A9541 [facility] Perry TC-99M 5 [facility] SULFUR INC INC COLLOID DX UP TO 20 MCI HEMOGLOBI 48475 A Alexa MARTINEZ N 5 JORDANA PORTILLO GLYCOSYLA PSC BRAN A1C COLLECTIO 23875 [facility] Pickens VENOUS 5 [facility] BLOOD INC INC VENIPUNCT URE BLOOD 38067 [facility] COUNT 5 [facility]OS[facility] COMPLETE INC INC AUTO&AUTO DIFRNTL WBC FLUORESCE 75623 [facility] NT 5 [facility] NONNFCT INC INC [place] [address] [facility] GAMMAGLOB 5 MEM [facility] ULIN IGA [place] [address] [facility] RAMOSON FERRITIN 5 MEM HOSP MEM HOSP INC INC IRON 56480 [facility] BINDING 5 [facility] CAPACITY INC INC COMPREHEN 94261 [facility] SIVE 5 [facility] [place] [address] [facility] IRON 5 [facility] [place] [address] LEIGHA MORENOUTCHER ABDOMINAL 5 MEDICAL MARGARITA REAL IMAGING TIME ASS W/IMAGE LIMITED ADJT TIS 92014 [facility] TRNS/REAR 5 [facility] HOSP GMT INC INC F/C/C/M/N /A/G/H/F 10SQCM/< [place] [address] [facility], PICKLESIM SURG 5 LLC ER JR АЛЕКСАНДР PATHOLOGY GROSS&NELSON ROSCOPIC EXAM GLUC BLD 61641 [facility] GLUC MNTR 5 [facility]OS[facility] DEV INC INC CLEARED FDA SPEC HOME USE ANES 81454 COMMUNITY FAJARDO HECTOR INTEG 5 ANESTH MUSC & OF THE NRV HEAD BLUE NECK&POST ERIOR TRUNK ECG 76616 [facility] PET[facility] JR ROUTINE 5 [facility] W/LEAST P 12 LDS I&R ONLY ECG 26170 [facility] ROUTINE 5 [facility] ECG INC INC W/LEAST 12 LDS TRCG ONLY W/O I&R COLLECTIO 33085 [facility] N VENOUS 5 [facility] BLOOD INC INC VENIPUNCT URE BLOOD 96652 [facility] COUNT 5 [facility] MEM [facility]OS[facility] COMPLETE INC INC AUTO&[place] [address] LEIGHA MAYORGACHER ABDOMEN & 5 MEDICAL MARGARITA PELVIS IMAGING W/O ASS CONTRAST MATERIAL CREATININ 20209 [facility] E BLOOD 5 [place] [address] [facility] UREA 5 [facility] NITROGEN INC INC QUANTITAT LYNN COLLECTIO 01648 [facility] N VENOUS 5 [facility] BLOOD INC INC VENIPUNCT URE GLUC BLD 28355 [facility] GLUC MNTR 5 [facility] DEV INC [place] [address] [facility], [facility]SH[facility] NELSON SURG 5 [facility] PATHOLOGY GROSS&NELSON ROSCOPIC EXAM ANES 69505 [facility] 5 ANESTH SHE INTESTINE OF THE BLUE ENDOSCOPY [place] [address] [facility] AMILCAR GILBERT W/RMVL 5 PHYSICIAN LUL OF TUMOR S GROUP POLYP LESION SNARE TQ GLUCOSE 14282 A Alexa MARTINEZ QUANTITAT 4 JORDANA PORTILLO LYNN BLOOD PSC XCPT REAGENT STRIP HEMOGLOBI 14881 A Alexa MARTINEZ N 4 JORDANA PORTILLO GLYCOSYLA PSC BRAN A1C IIV3 87410 A Alexa ARAIZA MICHELLE VACCINE 4 JORDANA PORTILLO SPLIT PSC VIRUS 0.5 ML DOSAGE IM USE PCV13 82307 A Alexa MARTINEZ VACCINE 4 JORDANA PORTILLO FOR PSC INTRAMUSC ULAR USE RADIOLOGI 96029 [facility] EXAM 4 MEDICAL MARGAR[place] CHEST 2 IMAGING VIEWS ASS FRONTAL&L ATERAL ECHO 12256 [facility] TTHRC R-T 4 [facility]OS[facility]OS[facility] 2D INC INC W/WOM-MOD E COMPL SPEC&COLR D HEMOGLOBI 31628 A Alexa MARTINEZ N 4 JORDANA PORTILLO GLYCOSYLA PSC BRAN A1C LIPID 18664 A Alexa ARAIZA MICHELLE PANEL 4 JORDANA PORTILLO PSC ALBUMIN 72363 A Alexa MARTINEZ URINE 4 JORDANA PORTILLO MICROALBU PSC MIN SEMIQUANT ITATIVE COMPREHEN 82540 [facility] SIVE 4 DIAGNOSTI DIAGNOSTI METABOLIC CS CS PANEL HEMOGLOBI 70874 JOSE G ARCHULETA MICHELLE N 4 GLYCOSYLA BRAN A1C RAD[facility]OLOGI 15632 [facility]ITA MARGARITA EXAMINATI ON CHEST SINGLE VIEW FRONTAL HEMOGLOBI 21678 JOSE G JOHNSTONES MICHELLE N 4 GLYCOSYLA BRAN A1C IIV3 43519 JOSE G ARCHULETA MICHELLE VACCINE 3 SPLIT VIRUS 0.5 ML DOSAGE IM USE IM ADM 65392 JOSE G ARCHULETA MICHELLE PRQ ID 3 SUBQ/IM NJXS 1 VACCINE ALBUMIN 77850 A Alexa ARAIZA MICHELLE URINE 3 JORDANA PORTILLO MICROALBU PSC MIN SEMIQUANT ITATIVE COLLECTIO 64758 A Alexa ARAIZA MICHELLE N VENOUS 3 JORDANA PORTILLO BLOOD PSC VENIPUNCT URE GLUCOSE 96263 A Alexa MARTINEZ QUANTITAT 3 JORDANA PORTILLO LYNN BLOOD PSC XCPT REAGENT STRIP HEMOGLOBI 71075 A Alexa MARTINEZ N 3 JORDANA PORTILLO GLYCOSYLA PSC BRAN A1C LIPID 25930 A Alexa ARAIZA MICHELLE PANEL [address] [place] [address] RIN RIN ABDOMEN & 3 MARGARITA MARGARITA PELVIS W/O CONTRAST MATERIAL BASIC 53489 [facility] METABOLIC 3 [facility] PANEL INC INC CALCIUM TOTAL BASIC 91404 [facility] METABOLIC 3 [facility] PANEL INC INC CALCIUM TOTAL LOCM Q9966 [facility] 200-299 3 [facility] MG/ML INC INC IODINE CONCENTRA TION PER ML CATHETER C1724 [facility] TRANSLUMI 3 [facility] NAL INC INC ATHERECTO MY ROTATIONA L COAGULATI 11841 [facility] ON TIME 3 [facility] ACTIVATED INC INC GUIDE C1769 [facility] WIRE 3 [facility] INC INC INJECTION J1644 [facility] HEPARIN 3 [facility] SODIUM INC INC PER 1000 UNITS ECG 99485 NICHOLAS PETERSON JR ROUTINE 3 DWI DWI ECG W/LEAST 12 LDS I&R ONLY REVSC 94964 [facility] OPN/PRQ 3 [facility] FEM/POP INC INC W/ATHRC/A NGIOP SM VSL CLOSURE C1760 [facility] DEVICE 3 [facility] VASCULAR INC INC CATHETER C1887 [facility] GUIDING 3 [facility] INC INC INTRDUCR/ C1894 [facility] SHEATH 3 [facility] NOT GUID INC INC INTRACARD EP NON-LASR CATHETER C1725 [facility] TRANSLUMI 3 [facility] NAL INC INC ANGIOPLAS TY NON-LASER REVASCULA 64675 [facility] RIZATION 3 [facility] ILIAC INC INC ARTERY ANGIOP 1ST VSL INTRDUCR/ C1766 [facility]OSON SHEATH 3 [facility] GUID INC INC INTRACARD EP NOT PEEL-AWAY BLOOD 92646 [facility] COUNT 3 [facility] COMPLETE INC INC AUTO&AUTO DIFRNTL WBC COMPREHEN 63631 [facility] SIVE 3 [facility] METABOLIC INC INC PANEL THROMBOPL 11717 [facility] ASTIN 3 [facility] TIME INC INC PARTIAL PLASMA/WH OLE BLOOD PROTHROMB 47060 [facility] IN TIME 3 [facility] INC INC LIPID 91757 A Alexa ARAIZA MICHELLE PANEL 3 JORDANA PORTILLO PSC HEMOGLOBI 33337 A Alexa ARAIZA MICHELLE N 3 JORDANA PORTILLO GLYCOSYLA PSC BRAN A1C COLLECTIO 98013 A Alexa MARTINEZ N VENOUS 3 JORDANA PORTILLO BLOOD PSC VENIPUNCT URE BASIC 77536 [facility] METABOLIC 3 [facility] PANEL INC INC CALCIUM TOTAL STENT [id number] [facility] JOHNSOTN NON-COATE 3 [facility] D/NON-COV INC INC ERED W/DELIVER Y SYSTEM LOCM Q9966 [facility] [phone] 3 [facility] MG/ML INC INC IODINE CONCENTRA TION PER ML COAGULATI 24816 [facility] ON TIME 3 [facility] ACTIVATED INC INC GLUC BLD 92356 [facility] GLUC MNTR 3 [facility] DEV INC INC CLEARED FDA SPEC HOME USE CATHETER C1725 [facility] TRANSLUMI 3 [facility] NAL INC INC ANGIOPLAS TY NON-LASER [...] [facility] INC INC REVSC 15096 [facility] OPN/PRQ 3 [facility] FEM/POP INC INC W/STNT/AT HRC/ANGIO P SM VSL ECG 33671 PAULY COATS ROUTINE 3 MICHELLE MICHELLE ECG W/LEAST 12 LDS I&R ONLY CLOSURE C1760 [facility] DEVICE 3 [facility] VASCULAR INC INC BLOOD 66182 [facility] COUNT 3 [facility] COMPLETE INC INC AUTO&AUTO DIFRNTL WBC COMPREHEN 82890 [facility] SIVE 3 [facility] METABOLIC INC INC PANEL PROTHROMB 00857 [facility] IN TIME 3 [facility] INC INC NON-INVAS 99008 [facility] LYNN 3 [facility] PHYSIOLOG INC INC IC STUDY EXTREMITY 3 LEVLS LIPID 51311 JOSE G ARCHULETA MICHELLE PANEL 3 HEMOGLOBI 12190 JOSE G ARCHULETA MICHELLE N 3 GLYCOSYLA BRAN A1C IM ADM 86079 JOSE G ARCHULETA MICHELLE PRQ ID 2 SUBQ/IM NJXS 1 VACCINE BASIC 23276 [facility] QUEST METABOLIC 2 DIAGNOSTI DIAGNOSTI PANEL CS CS CALCIUM TOTAL BASIC 79900 [facility] METABOLIC 2 DIAGNOSTI DIAGNOSTI PANEL CS CS CALCIUM TOTAL ALBUMIN 28505 JOSE G ARCHULETA MICHELLE URINE 2 MICROALBU MIN QUANTIATI VE TRANSFERA 11117 JOSE G ARCHULETA MICHELLE SE 2 ASPARTATE AMINO AST SGOT TRANSFERA 22268 JOSE G ARCHULETA MICHELLE SE 2 ALANINE AMINO ALT SGPT HEMOGLOBI 39424 JOSE G ARCHULETA MICHELLE N 2 GLYCOSYLA BRAN A1C LIPID 81472 JOSE G ARCHULETA MICHELLE PANEL 2 LIPID 38576 SAMIRA SAMIRA PANEL 2 ROSANNA ROSANNA GLUCOSE 69374 SAMIRA SAMIRA QUANTITAT 2 ROSANNA ROSANNA LYNN BLOOD XCPT REAGENT STRIP TRANSFERA 02113 SAMIRA SAMIRA SE 2 ROSANNA ROSANNA ASPARTATE AMINO AST SGOT HEMOGLOBI 45756 SAMIRA SAMIRA N 2 ROSANNA ROSANNA [place] [address] [facility] PROSTATE 2 DIAGNOSTI DIAGNOSTI SPECIFIC CS CS ANTIGEN TOTAL BASIC 42680 [facility] QUEST METABOLIC 2 DIAGNOSTI DIAGNOSTI PANEL CS CS CALCIUM TOTAL BASIC 06528 [facility] QUEST METABOLIC 2 DIAGNOSTI DIAGNOSTI PANEL CS CS CALCIUM TOTAL HEMOGLOBI 54283 QUEST QUEST N 2 DIAGNOSTI DIAGNOSTI GLYCOSYLA CS CS BRAN A1C TRANSFERA 56508 QUEST QUEST SE 2 DIAGNOSTI DIAGNOSTI ASPARTATE CS CS AMINO AST SGOT LIPID 89882 QUEST QUEST PANEL 2 DIAGNOSTI DIAGNOSTI CS CS COLLECTIO 45671 SAMIRA SAMIRA N VENOUS 2 ROSANNA ROSANNA BLOOD VENIPUNCT URE LIPID 44191 QUEST QUEST PANEL 1 DIAGNOSTI DIAGNOSTI CS CS TRANSFERA 24067 QUEST QUEST SE 1 DIAGNOSTI DIAGNOSTI ASPARTATE CS CS AMINO AST SGOT HEMOGLOBI 38858 A C A C N 1 JORDANA SILVEIRA MD GLYCOSYLA PSC PSC BRAN A1C BASIC 91765 [facility]ST METABOLIC 1 DIAGNOSTI DIAGNOSTI PANEL CS CS CALCIUM TOTAL BASIC 34627 [facility]ST METABOLIC 1 DIAGNOSTI DIAGNOSTI PANEL CS CS CALCIUM TOTAL HEMOGLOBI 47333 A C SAMIRA N 1 JORDANA PORTILLO ROSANNA GLYCOSYLA PSC BRAN A1C TRANSFERA 25681 [facility] QUEST SE 1 DIAGNOSTI DIAGNOSTI ASPARTATE CS CS AMINO AST SGOT LIPID 96688 QUEST QUEST PANEL 1 DIAGNOSTI DIAGNOSTI CS CS 3D 36745 [place] RIN RENDERING 1 MEDICAL MARGARITA IMAGING W/INTERP& ASS POSTPROC DI[place] [id number] [place] [address] ABDOMEN & 1 MEDICAL MARGARITA PELVIS IMAGING [place] [address] [facility] LIPASE 1 [facility] INC INC CYANOCOBA 34522 [facility] LUBNA 1 [facility] VITAMIN INC INC B-[address] [place] [address] [facility] FERRITIN 1 [facility] INC INC IRON 87996 [facility] BINDING 1 [facility] [place] [address] [facility] AMYLASE 1 [place] [address] [facility] FOLIC 1 [facility] [address] [facility] IRON 1 [facility] INC INC COMPREHEN 37695 [facility] SIVE 1 [facility] METABOLIC INC INC PANEL BLOOD 01228 [facility] COUNT 1 [facility] COMPLETE INC INC AUTO&AUTO DIFRNTL WBC FLUORESCE 91730 [facility] NT 1 [facility] NONNFCT INC INC AGT ANTB TITER EA ANTIBODY CV STRS 04935 [facility] FALLU[facility] TST 1 PHYSICIAN JULIETH XERS&/OR S GROUP RX CONT ECG W/O I&R CV STRS 09004 [facility] TST 1 [facility] XERS&/OR INC INC RX CONT ECG TRCG ONLY MYOCARDIA 69055 [facility] L SPECT 1 [facility] MULTIPLE INC INC STUDIES ALBUMIN 10317 Janelle HOGAN URINE 1 JORDANA MARTE MICROALBU [facility] MIN SEMIQUANT ITATIVE BASIC 25214 [facility] METABOLIC 1 [facility] PANEL CALCIUM TOTAL HEMOGLOBI 54232 Janelle HOGAN N 1 JORDANA MARTE GLYCOSYLA PSC BRAN A1C TRANSFERA 45504 [facility] SE 1 [facility] [place] [address] [facility] PROSTATE 1 [facility] SPECIFIC ANTIGEN TOTAL LIPID 61278 [facility] PANEL 1 [facility] RADEX 76191 [place] SPINE 1 [facility] LUMBOSACR CLINIC AL 2/3 PSC VIEWS RADEX 26423 [place] SPINE 1 MEDICAL MARGARITA LUMBOSACR IMAGING AL 2/3 ASS VIEWS MRI 56680 [place] R[place] SPINAL 0 MEDICAL MARGARITA CANAL IMAGING LUMBAR ASS W/O CONTRAST MATERIAL HEMOGLOBI 60584 [facility] N 0 [facility] GLYCOSYLA BRAN A1C LIPID 21918 [facility] PANEL 0 [facility] TRANSFERA 66220 [facility] SE 0 [facility] ASPARTATE AMINO AST SGOT BASIC 64871 [facility] METABOLIC 0 [facility] PANEL CALCIUM TOTAL LANCETS A4259 M E [...] T STRIPS HOME BLD GLU MON-50 TRANSFERA 33680 [facility] SE 0 [facility] ASPARTATE AMINO AST SGOT BASIC 51877 [facility] METABOLIC 0 [facility] PANEL CALCIUM TOTAL LIPID 95026 [facility] PANEL 0 [facility] BLOOD 81999 [facility] COUNT 0 [facility] COMPLETE AUTO&AUTO DIFRNTL WBC HEMOGLOBI 14321 Janelle HOGAN N 0 JORDANA MALONE GLYCOSYLA [...] T STRIPS HOME BLD GLU MON-50 TRANSFERA 49884 LAB DEXTER LAB DEXTER SE 0 AMERIC AMERIC ASPARTATE HOLDING HOLDING AMINO AST SGOT BASIC 46933 LAB DEXTER LAB DEXTER METABOLIC 0 AMERIC AMERIC PANEL HOLDING HOLDING CALCIUM TOTAL HEMOGLOBI 15066 LAB DEXTER LAB DEXTER N 0 AMERIC AMERIC GLYCOSYLA HOLDING HOLDING BRAN A1C LIPID 71805 LAB DEXTER LAB DEXTER PANEL 0 [employer] [place] [address] LAB DEXTER LAB DEXTER PROSTATE 0 AMERIC AMERIC SPECIFIC HOLDING HOLDING ANTIGEN TOTAL GLUC BLD 55528 [facility] GLUC MNTR 9 [facility] DEV INC INC CLEARED FDA SPEC HOME USE COLSC FLX 25202 AMILCAR ALLRAN W/RMVL 9 JR VLADIMIR, OF TUMOR SAMUEL Oliva POLYP LESION SNARE TQ ESOPHAGOG 34975 [facility] ASTRODUOD 9 [facility] ENOSCOPY INC INC TRANSORAL DIAGNOSTI C EGD 91728 ANUMRAN ALLRAN TRANSORAL 9 JR VLADIMIR, BIOPSY SAMUEL Oliva SINGLE/MU LTIPLE OTHER 4513 [facility] ENDOSCOPY 9 [facility] OF SMALL INC INC INTESTINE ENDOSCOPI 4542 [facility] C 9 [facility] POLYPECTO INC [place] [address] PATHOLOGY PATHOLOGY SURG 9 & & PATHOLOGY CYTOLOGY CYTOLOGY LAB LAB GROSS&[place] [address] [facility] INFUSION 9 [facility] THERAPY/P INC INC ROPHYLAXI S /DX 1ST TO 1 HR INITIAL 02021 AMILCAR ALLRAN INPATIENT 9 JR, JR, CONSULT SAMUEL Oliva NEW/ESTAB [place] [address] [place] [address] [place] R[place], ABDOMEN 9 MEDICAL MATY W/O IMAGING CONTRAST ASSOCIATE MATERIAL S TRANSFUSI 9904 [facility] ON OF 9 [facility] PACKED INC INC CELLS 3D 23604 [place] RIN, RENDERING 9 MEDICAL MATY IMAGING W/INTERP& ASSOCIATE POSTPROC S DIFF WORK STATION RADIOLOGI 71330 [place] DAYANA, C EXAM 9 MEDICAL JUMANA P CHEST 2 IMAGING VIEWS ASSOCIATE FRONTAL&L S ATERAL ECG 86354 [facility] PETERSON, ROUTINE [address] [facility] W/LEAST PROF SERV 12 LDS I&R ONLY CT PELVIS 65377 [facility], W/O 9 MEDICAL MATY CONTRAST IMAGING MATERIAL ASSOCIATE S THERAPEUT 13726 [place] BESSON, IC 9 [facility] A PROPHYLAC INTERNAL TIC/DX MED INJECTION SUBQ/IM THERAPEUT 56128 LICK[place] BESSON, IC 9 [facility] S[facility] A PROPHYLAC INTERNAL TIC/DX MED INJECTION SUBQ/IM THERAPEUT 44090 LICKING MCKEMIE IC 9 VALLEY JR, PROPHYLAC INTERNAL SHARONA F TIC/DX MED INJECTION SUBQ/IM THERAPEUT 09873 [facility] BESSON, IC 9 [facility] A PROPHYLAC INTERNAL TIC/DX MED INJECTION SUBQ/IM CYANOCOBA 38895 LAB DEXTER LAB DEXTER LUBNA 9 AMERIC AMERIC VITAMIN HOLDING HOLDING B-12 COMPREHEN 61862 COMBINED COMBINED SIVE 9 PHYSICIAN PHYSICIAN METABOLIC S LAB S LAB PANEL SYPHILIS 62041 LAB DEXTER LAB DEXTER TEST 9 AMERIC AMERIC QUANTIT[place] [address] COMBINED COMBINED THYROID 9 PHYSICIAN PHYSICIAN STIMULATI S LAB S LAB NG HORMONE TSH HEMOGLOBI 57134 COMBINED COMBINED N 9 PHYSICIAN PHYSICIAN GLYCOSYLA S LAB S LAB BRAN A1C LIPID 58111 COMBINED COMBINED PANEL 9 PHYSICIAN PHYSICIAN S LAB S LAB COMPREHEN 95492 [facility] SIVE 9 [facility] METABOLIC INC INC PANEL L HRT 25128 [facility] FALLUJI, CATHETERI 9 FAMILY NEZAR M ZATION PHYSICIAN [place] [address] [facility] FALLUPANDA C-CATHJ 9 FAMILY NEZAR M F/SLCTV C PHYSICIAN ANGRPH PSC I SI&R 09845 [facility] FALL[facility], F/NJX PX 9 FAMILY NEZAR M DURING PHYSICIAN C-CATHJ PSC VENTR&/AT R ANGRPH I SI&R 53687 [facility] ANDRES, F/NJX PX 9 FAMILY ADELINE Perry DURING PHYSICIAN C-CATHJ PSC PULM&/OR SELECT TCAT PLMT 40933 SAMI CAMPOS, 9 FAMILY ADELINE Perry INTRACORO PHYSICIAN CHELY PSC STENT PRQ 1 VESSEL INJECTION 19640 [facility] ANDRES, CARDIAC 9 FAMILY ADELINE Perry CATHJ L PHYSICIAN VENTR/L PSC ATR ANGIOGRAP H ECG 45780 [place] ROUTINE 9 [place] III, ECG CLINIC SUZY L W/LEAST PSC 12 LDS I&[place] [address] [facility] UREA 9 [facility] NITROGEN INC INC QUANTITAT LYNN PROTHROMB 29122 [facility] IN TIME 9 [facility] INC INC CREATININ 45129 [facility] E BLOOD 9 [facility] INC INC ECHO 57061 [facility] ANDRES, TTHRC R-T 9 FAMILY ADELINE Perry 2D PHYSICIAN W/WOM-MOD PSC E COMPL SPEC&COLR D NON-INVAS 58687 LEIGHA ANNE LYNN 9 MEDICAL JUMANA Guerrero PHYSIOLOG IMAGING IC STUDY ASSOCIATE EXTREMITY S 3 LEVLS DOPPLER 70514 [facility] ECHOCARD 9 [facility] PULSE INC INC WAVE W/SPECTRA L DISPLAY ECHO 06322 [facility] TRANSTHOR 9 [facility] AC R-T 2D INC INC W/WO M-MODE REC COMP DOP 62259 [facility] ECHOCARD 9 [facility] COLOR INC INC FLOW VELOCITY MAPPING BLOOD 59642 [facility] COUNT 9 [facility] COMPLETE INC INC AUTO&AUTO DIFRNTL WBC NATRIURET 48147 [facility] IC 9 [facility] PEPTIDE INC INC COMPREHEN 83850 [facility] SIVE 9 [facility] [address] [facility] THYROID 9 [facility] STIMULATI INC INC NG HORMONE TSH COMPREHEN 50578 [facility] SIVE 9 [facility] METABOLIC INC INC PANEL ALBUMIN 00986 [facility] URINE 9 [facility] MICROALBU INC INC MIN QUANTIATI VE LIPID 42015 [facility] PANEL 9 [facility] INC INC LIPID 52102 [facility] PANEL 8 [facility] INC INC HEMOGLOBI 46517 [facility] N 8 [facility] GLYCOSYLA INC INC BRAN A1C ALBUMIN 63656 [facility] URINE 8 [facility] MICROALBU INC INC MIN QUANTIATI VE COMPREHEN 73770 [facility] SIVE 8 [facility] METABOLIC INC INC PANEL COMPREHEN 03393 [facility] SIVE 8 [facility] METABOLIC INC INC PANEL CV STRS 58737 [facility] COATS, TST 8 [facility] RX CONT PROF SERV ECG I&R ONLY ALBUMIN 22688 [facility] URINE 8 [facility] MICROALBU INC INC MIN QUANTIATI VE MYOCRD 71541 [facility] PRFUJ STD 8 [facility] EJEC FXJ INC INC MYOCRD 65356 [facility] PRFUJ IMG 8 [facility] TOMOG INC INC SPECT [place] SOLICITOR STD MYOCRD 78161 [facility] PRFUJ STD 8 [facility] WALL INC INC MOTION QUAL/CHAR STD HEMOGLOBI 53825 [facility] N 8 [facility] GLYCOSYLA INC INC BRAN A1C LIPID 35329 [facility] PANEL 8 [facility] INC INC CV STRS 15489 [facility] TST 8 [facility] XERS&/OR INC INC RX CONT ECG TRCG ONLY CV STRS 41328 [facility] COATS, ANIL 8 [facility] RX CONT PROF SERV ECG W/O I&R ECG 13964 MARQUITAKING CHRIS, ROUTINE 8 [facility] ECG INTERNAL W/LEAST MED 12 LDS W/I&R LIPID 45038 [facility] PANEL 8 [facility] INC INC HEMOGLOBI 09364 [facility] N 8 [facility] GLYCOSYLA INC INC BRAN A1C ALBUMIN 24138 [facility] URINE 8 [facility] MICROALBU INC INC MIN QUANTIATI VE COMPREHEN 04521 [facility] SIVE 8 [facility] METABOLIC INC INC PANEL ALBUMIN 88950 LICKING CHRIS, URINE 8 [facility] MICROALBU INTERNAL MIN MED SEMIQUANT ITATIVE Encounters Encounter Start End Date Code Location Performer Type Date OFFICE 99668 A C JOSE G OUTPATIEN 7 7 JORDANA PORTILLO T VISIT PSC 25 MINUTES OFFICE 04298 A Alexa ARAIZA OUTPATIEN 7 7 JORDANA PORTILLO T VISIT PSC 25 MINUTES [facility] - 6 6 [facility] OUTPATIEN INC T EMERGENCY 10917 [facility] DEPT 6 6 [facility] VISIT INC HIGH SEVERITY& THREAT FUNCJ OFFICE 16817 A C JOSE G MICHELLE OUTPATIEN 6 6 JORDANA PORTILLO T VISIT PSC 15 MINUTES OFFICE 88936 A Alexa ARAIZA MICHELLE OUTPATIEN 6 6 JORDANA PORTILLO T VISIT PSC 10 MINUTES OFFICE 76973 A Alexa ARAIZA MICHELLE OUTPATIEN 6 6 JORDANA PORTILLO T VISIT PSC 25 MINUTES OFFICE 18047 A Alexa MARTINEZ OUTPATIEN 5 5 JORDANA PORTILLO T VISIT PSC 15 MINUTES OFFICE 11740 A C DEION OUTPATIEN 5 5 JORDANA HOUSTON T VISIT PSC 15 MINUTES OFFICE 69948 A Alexa MARTINEZ OUTPATIEN 5 5 JORDANA PORTILLO T VISIT PSC 15 MINUTES OFFICE 10859 A Alexa ARAIZA MICHELLE OUTPATIEN 5 5 JORDANA PORTILLO T VISIT PSC 15 MINUTES OFFICE 23750 A Alexa ARAIZA MICHELLE OUTPATIEN 5 5 JORDANA PORTILLO T VISIT PSC 15 MINUTES [facility], 5 5 REGISTRY INPATIENT & HOME HE OFFICE 51899 A Alexa MARTINEZ OUTPATIEN 5 5 JORDANA PORTILLO T VISIT PSC 15 MINUTES HOME [facility], 5 5 REGISTRY INPATIENT & HOME OFFICE 91091 [facility] ELROY NUNEZ OUTPATIEN 5 5 PHYSICIAN T VISIT S GROUP 15 MINUTES OFFICE 04183 [facility] OUT[facility]IEN 5 5 [facility] T VISIT INC 10 MINUTES [facility]OSP[facility] - 5 5 [facility] OUTPATIEN INC T EMERGENCY 80227 ISRAEL MCKEE DEPT 5 5 PHYSICIAN U CHANDLER VISIT S, [facility] HIGH SEVERITY& THREAT [facility] OFFICE 51701 A Alexa MARTINEZ OUTPATIEN 5 5 JORDANA PORTILLO T VISIT PSC 15 MINUTES OFFICE 14042 A Alexa MARTINEZ OUTPATIEN 5 5 JORDANA PORTILLO T VISIT PSC 15 MINUTES [facility]OSP[facility] - 5 5 [facility] OUTPATIEN INC OFFICE 66913 A Alexa MARTINEZ OUTPATIEN 5 5 JORDANA PORTILLO T VISIT PSC 25 MINUTES OFFICE 81788 MITESH GRIFFITHS ANT CONSULTAT 5 5 MEDICAL ION SERV NEW/ESTAB FOUNDATIO PATIENT N 40 MIN [facility]OSP[facility] - 5 5 [facility] OUTPATIEN INC T [facility] - 5 5 [facility] OUTPATIEN INC T OFFICE 67112 [facility] AMILCAR GILBERT OUTPATIEN 5 5 PHYSICIAN LUL T VISIT S GROUP 15 MINUTES [facility]OSP[facility] - 5 5 [facility] OUTPATIEN INC T [facility] - 5 5 [facility] OUTPATIEN INC T OFFICE 56311 HARRIETT LORENZANA OUTPATIEN 5 5 DES DES T NEW 20 MINUTES [facility] - 5 5 [facility]PATIEN INC [facility] 5 5 [facility] OUTPATIEN INC OFFICE 51310 [facility] ALLMIRACLE JR OUTPATIEN 5 5 PHYSICIAN LUL T VISIT S GROUP 15 MINUTES HOSPITAL [facility] - 5 5 [facility] OUTPATIEN [facility] OFFICE 74429 [facility] ALLMIRACLE JR OUTPATIEN 4 4 PHYSICIAN LUL T NEW 30 S GROUP MINUTES OFFICE 69120 A Alexa MARTINEZ OUTPATIEN 4 4 JORDANA PORTILLO T VISIT PSC 25 MINUTES EMERGENCY 11813 VIKTORIYA IZQUIERDO 4 4 [facility] EMERGENCY T VISIT PHYS HIGH/URGE NT SEVERITY HOSPITAL [facility] - 4 4 [facility] OUTPATIEN [facility] OFFICE 41215 A Alexa JUÁREZ 4 4 JORDANA PORTILLO T VISIT PSC 25 MINUTES OFFICE 43724 JOSE G MARTINEZ OUTPATICONSTANTINE 4 4 T VISIT 25 MINUTES EMERGENCY 64687 FELECIA IZQUIERDO DEPT 4 4 [facility] VISIT HIGH SEVERITY& THREAT [facility] OFFICE 33046 JOSE G MARTINEZ OUTPATIEN 4 4 T VISIT 25 MINUTES OFFICE 64558 A Alexa JUÁREZ 3 3 JORDANA PORTILLO T VISIT PSC 25 MINUTES EMERGENCY 06153 EDUARDO CAST DEPT 3 3 EMERGENCY ONEIL VISIT SERVICES HIGH SEVERITY& THREAT [facility] - 3 3 [facility]EN [facility] - 3 3 [facility] OUTPATIEN [facility] PRETSON - 3 3 [facility] OUTPATIEN INC OFFICE 37486 A Alexa JUÁREZ 3 3 JORDANA PORTILLO T VISIT PSC 25 MINUTES [facility]OSP[facility] - 3 3 [facility] OUTPATIEN INC T [facility] - 3 3 [facility] OUTPATIEN INC T [facility] - 3 3 [facility] OUTPATIEN INC T OFFICE 38043 JOSE GPAVEL JOHNSTONES MICHELLE OUTPATIEN 3 3 T VISIT 15 MINUTES OFFICE 90848 JOSE G ARCHULETA MICHELLE OUTPATIEN 3 3 T VISIT 15 MINUTES [facility]OSP[facility] - 3 3 [facility] OUTPATIEN INC T OFFICE 13565 JOSE G ARCHULETA MICHELLE OUTPATIEN 3 3 T VISIT 25 MINUTES OFFICE 95249 JOSE GPAVEL ARCHULETA MICHELLE OUTPATIEN 2 2 T VISIT 25 MINUTES OFFICE 71844 SAMIRA SAMIRA OUTPATIEN 2 2 ROSANNA ROSANNA T VISIT 25 MINUTES OFFICE 65349 SAMIRA SAMIRA OUTPATIEN 2 2 ROSANNA ROSANNA T VISIT 25 MINUTES OFFICE 29257 A C SAMIRA OUTPATIEN 1 1 JORDANA PORTILLO ROSANNA T VISIT PSC 25 MINUTES OFFICE 31898 A C OUTPATIEN 1 1 JORDANA PORTILLO T VISIT PSC 25 MINUTES [facility]OSP[facility] - 1 1 [facility] OUTPATIEN INC [facility] - 1 1 [facility] OUTPATIEN INC T OFFICE 80379 [place] IHSAN GABI CONSULTAT 1 1 MEDICAL ION SERV NEW/ESTAB FOUNDATIO PATIENT 60 MIN OFFICE 74571 [facility] FALLUJI OUTPATIEN 1 1 PHYSICIAN JULIETH T VISIT S GROUP 25 MINUTES [facility]OSPITAL [facility] - 1 1 [facility] OUTPATI[facility] OFFICE 68787 [facility] F[facility] OUTPATIEN 1 1 PHYSICIAN JULIETH T VISIT S GROUP 25 MINUTES OFFICE 61254 A C SAMIRA OUTPATIEN 1 1 JORDANA MARTE T VISIT PSC 25 MINUTES OFFICE 62417 [place] [facility] 1 1 [facility] T VISIT CLINIC 15 PSC MINUTES OFFICE 85359 [place] [facility] 1 1 [facility] NEW/ESTAB PSC PATIENT 60 MIN [facility] T OFFICE 80368 A C SAMIRA OUTPATIEN 0 0 JORDANA MARTE T VISIT PSC 25 MINUTES OFFICE 71704 A C SAMIRA OUTPATIEN 0 0 JORDANA MARTE T VISIT PSC 15 MINUTES OFFICE 25246 A C SAMIRA, OUTPATIEN 0 0 JORDANA MALONE T VISIT PSC 25 MINUTES OFFICE 31418 A Alexa SILVEIRA, A OUTPATIEN 0 0 JORDANA Liu T VISIT 5 PSC MINUTES OFFICE 75645 A C SAMIRA, OUTPATIEN 0 0 JORDANA MALONE T [facility] 45 PSC MINUTES OFFICE 78138 [facility] ALLRAN OUTPATIEN 0 0 JR GILBERT T VISIT SAMUEL Oliva 15 MINUTES OFFICE 28237 [facility] ALLRAN OUTPATIEN 9 9 JR GILBERT T VISIT SAMUEL Oliva 15 MINUTES [facility] - [facility] - 9 9 [facility] EM[facility]ENCY 47111 EDUARDO YUAN, DEPT 9 9 EMERGENCY JESSICA S VISIT SERVICES HIGH SEVERITY& ASSOCIATE THREAT S [facility] OFFICE 70451 MAMTA WAITE 9 9 AILIN SADE A T VISIT 5 INTERNAL MINUTES MED OFFICE 88801 LICMAMTA CHRISTIANSON 9 9 [facility] A T VISIT 5 INTERNAL MINUTES MED OFFICE 76354 [facility] PAULY, OUTPATIEN 9 9 [facility] T VISIT 5 INTERNAL MINUTES MED OFFICE 82392 [facility] L[facility] OUTPATIEN 9 9 AILIN JR, T VISIT 5 INTERNAL SHARONA F MINUTES MED OFFICE 05482 [facility] BESSON, OUTPATIEN 9 9 [facility] T VISIT 5 INTERNAL MINUTES MED OFFICE 53979 [facility] MARCIANOSON, OUTPATIEN 9 9 [facility] T VISIT 5 INTERNAL MINUTES MED OFFICE 84010 [facility] B[facility], OUTPATIEN 9 9 [facility] A T VISIT 5 INTERNAL MINUTES MED OFFICE 13838 [facility] OUTPATIEN 9 9 AILIN GILBERT, T VISIT 5 INTERNAL SHARONA F MINUTES MED OFFICE 74419 [facility] PAULY, OUTPATIEN 9 9 AILIN SADE A T VISIT INTERNAL 25 MED MINUTES OFFICE 62104 [facility]PAT[facility] 9 9 FAMILY ADELINE Perry T VISIT PHYSICIAN 25 PSC MINUTES [facility] 9 [facility] T OFFICE 23095 [facility] F[facility], OUTPATIEN 9 9 FAMILY ADELINE Perry T VISIT PHYSICIAN 25 PSC MINUTES [facility] - 9 9 [facility] 9 [facility] T OFFICE 87263 [facility] FALLUJI, CONSULTAT 9 9 FAMILY ADELINE Perry ION PHYSICIAN NEW/ESTAB PSC PATIENT 60 MIN [facility] PRESOTN - 9 9 [facility] OFFICE 18626 [facility] CHR[facility] OUTPATIEN 9 9 AILIN ZAVALA T VISIT INTERNAL 15 MED MINUTES [facility] - 8 8 [facility] T OFF[facility] 77184 [facility] MAMTA PEREZ 8 8 [facility] HOLLOW LUCAS T VISIT INTERNAL 15 MED MINUTES [facility] - 8 8 [facility] T OFFICE 06732 LICMAMTA LE 8 8 [facility] HOLLOW LUCAS T VISIT INTERNAL 15 MED MINUTES OFFICE 28021 [facility] CH[facility] OUTPATICONSTANTINE 8 8 [facility] HOLLOW LUCAS T VISIT INTERNAL 15 MED MINUTES [facility] - 8 8 [facility] T OFFICE 40932 [facility] MAMTA PEREZ 8 8 [facility] HOLLOW LUCAS T VISIT INTERNAL 15 MED MINUTES OFFICE 83773 MAMTA WAITE 8 8 [facility] HOLLOW SADE Luis T VISIT INTERNAL 15 MED MINUTES OFFICE [id number] [address] [facility] LIZZIE T VISIT SERV N 15 FOUNDATIO MINUTES
--- OUTSIDE RECORDS SUMMARY | 2017-05-24 18:59 | External Medical Summary Rpt ---
Author Author [facility] Ponce, [employer] Organization [employer] Address Unknown Phone Unavailable
--- OUTSIDE RECORDS SUMMARY | 2017-05-24 18:59 | External Medical Summary Rpt ---
Demographics Preferred Language Nepali Marital Status Unknown Anabaptism Affiliation Unknown Race Unknown Ethnic Group Unknown Author Author [facility] Address Unknown Phone Immunization No patient found.
--- OUTSIDE RECORDS SUMMARY | 2017-05-24 18:59 | External Medical Summary Rpt ---
Demographics Preferred Language Luxembourgish Marital Status Unknown Spiritism Affiliation Unknown Race Unknown Ethnic Group Unknown Author Author [facility] Address Unknown Phone Immunization No patient found.
[2017-05-24 19:01] LABS: VENOUS O2 SAT 96.5 % (75-80); VENOUS TCO2 25.1 MMOL/L (23-27)
[2017-05-24 19:15] LABS: BUN 27 mg/dL (7-18)
[2017-05-24 19:16] LABS: GFR (ESTIMATED) 29 ML/MIN (>60)
--- NOTE | 2017-05-24 20:00 | RADIOLOGY REPORT PS360 ---
CHEST(2 VIEWS-NOT PORTABLE) COMPARISON: PA and lateral chest 03/14/2016 HISTORY: Generalized weakness TECHNIQUE: PA and lateral chest FINDINGS: The lung alavrado are well expanded and appear clear of infiltrate. There is mild generalized cardiomegaly and there has been slight interval increase in cardiac size since the previous chest film March 2016. The vascularity is normal with no evidence of failure and there is no pleural fluid. IMPRESSION: Mild cardio megaly, no acute chest pathology noted
--- NOTE | 2017-05-24 20:00 | RADIOLOGY REPORT PS360 ---
CHEST(2 VIEWS-NOT PORTABLE) COMPARISON: PA and lateral chest 03/14/2016 HISTORY: Generalized weakness TECHNIQUE: PA and lateral chest FINDINGS: The lung alvarado are well expanded and appear clear of infiltrate. There is mild generalized cardiomegaly and there has been slight interval increase in cardiac size since the previous chest film March 2016. The vascularity is normal with no evidence of failure and there is no pleural fluid. IMPRESSION: Mild cardio megaly, no acute chest pathology noted
[2017-05-24] MEDS ORDERED: CLINDAMYCIN HC300 MG PO (20:04)
[2017-05-24 20:51] VITALS: BP 163/88
[2017-05-25] MEDS ORDERED: APAP/HYDROCODON1 TA9 PO (01:22)
[2017-05-25] MEDS ORDERED: GABAPENTIN300 MG PO (01:23)
[2017-05-25] MEDS ORDERED: JANUVIA50 MG PO (01:25)
[2017-05-25] MEDS ORDERED: HUMALOG MIX 75/10 ML SC (01:31)
[2017-05-25] MEDS ORDERED: ISOSORBIDE MONO60 MG PO (09:03)
[2017-05-25] MEDS ORDERED: LIPITOR40 MG PO (09:06)
[2017-05-26] MEDS ORDERED: APAP/HYDROCODON1 TA9 PO (06:43)
== END 2017-05-24 21:01 | disposition home or self-care (01) ==
LOC: ER 18:12
PROVIDERS: Emergency Medicine
DX: L02.214 Cutaneous abscess of groin (principal); N28.9 Disorder of kidney and ureter, unspecified; E11.65 Type 2 diabetes mellitus with hyperglycemia; Z79.4 Long term (current) use of insulin; I10 Essential (primary) hypertension; Z72.0 Tobacco use; I25.10 Atherosclerotic heart disease of native coronary artery without angina pectoris